=== PATIENT | female | born 1965 ===

== ENCOUNTER 2020-02-19 10:14 | Outpatient (REF) | payer OTHER, SELFPAY ==
[2020-02-19 11:07] LABS: Creatinine Urine 120.64 mg/dL; Microalbum/Creatinine Ratio Ur 5.8 ug/mg cr
[2020-02-19 11:09] LABS: Alanine Aminotransferase 15 U/L (0-31); Alkaline Phosphatase 75 U/L (39-117); Anion Gap 13 (12-20); Aspartate Amino Transferase 14 U/L (5-31); Bilirubin Total 0.5 mg/dL (0.0-1.0); Blood Urea Nitrogen 14 mg/dL (9-16); Calcium 9.1 mg/dL (8.4-10.2); Carbon Dioxide 24 mmol/L (22-29); Chloride 106 mmol/L (96-108); Estimated Glomerular Filt Rate > 60; Glucose Fasting 135 mg/dL (60-99); Potassium 4.4 mmol/l (3.3-5.1); Sodium 139 mmol/L (135-145); Total Protein 7.6 g/dL (6.5-8.0)
== END 2020-02-19 10:15 | disposition home or self-care (01) ==
LOC: HO.LAB 10:14
PROVIDERS: PCP Internal Medicine; Visit Provider Internal Medicine
DX: E11.9 Type 2 diabetes mellitus without complications (principal)
CPT/HCPCS: 80053; 82043

== ENCOUNTER 2020-03-29 10:07 | Outpatient (REF) | payer OTHER, SELFPAY | END 2020-03-29 10:08 | disposition home or self-care (01) | LOC: HO.LAB 10:07 | PROVIDERS: Visit Provider Internal Medicine | DX: Z20.828 Contact with and (suspected) exposure to other viral communicable diseases (principal) | CPT/HCPCS: C9803; U0003 ==

== ENCOUNTER → 2020-04-19 12:52 | Outpatient (BNVA) | payer OTHER, SELFPAY | PROVIDERS: PCP Internal Medicine; Referring Provider Internal Medicine; Visit Provider Internal Medicine Gastroenterology | DX: Z83.71 Family history of colonic polyps (principal) | CPT/HCPCS: 99212 ==

== ENCOUNTER 2020-10-28 09:31 | Outpatient (REF) | payer OTHER, SELFPAY ==
[2020-10-28 10:07] LABS: MANUAL DIFF FLAG NO
[2020-10-28 10:14] LABS: Basophils Percent Auto 0.5 % (0-2); Eosinophils Absolute Auto 0.1 X10*3/uL (0.0-0.4); Eosinophils Percent Auto 1.4 % (0-4); Hematocrit 35.8 % (37-47); Hemoglobin 11.8 g/dl (12.0-16.0); Imm Gran Abs Auto 0.03 X10*3/uL (0.00-0.03); Imm Gran Pct Auto 0.3 % (0.0-0.4); Lymphocytes Absolute Auto 3.4 X10*3/uL (1.2-4.9); Lymphocytes Percent Auto 38.6 % (20-40); Mean Corpuscular Hemoglobin 29.4 pg (27.0-33.0); Mean Corpuscular Volume 89.1 fL (80-98); Mean Platelet Volume 12.2 fL (9.4-12.3); Monocytes Absolute Auto 0.5 X10*3/uL (0.1-1.2); Monocytes Percent Auto 5.5 % (2-11); Neutrophils Absolute Auto 4.7 X10*3/uL (2.0-8.3); Neutrophils Percent Auto 53.7 % (45-73); Platelet Count 264 X10*3/uL (160-400); Red Blood Count 4.02 X10*6/uL (4.20-5.50); Red Cell Distribution Width 12.3 % (11.0-16.0); White Blood Count 8.7 X10*3/uL (4.8-10.8)
[2020-10-28 10:37] LABS: Alanine Aminotransferase 12 U/L (0-31); Albumin Level 3.9 g/dL (3.5-5.0); Alkaline Phosphatase 85 U/L (39-117); Anion Gap 12 (12-20); Aspartate Amino Transferase 13 U/L (5-31); Bilirubin Total 0.3 mg/dL (0.0-1.0); Blood Urea Nitrogen 15 mg/dL (9-16); Calcium 9.4 mg/dL (8.4-10.2); Carbon Dioxide 26 mmol/L (22-29); Chloride 107 mmol/L (96-108); Cholesterol 190 mg/dL; Estimated Glomerular Filt Rate > 60; Glucose Fasting 128 mg/dL (60-99); HDL Cholesterol 37 mg/dL; LDL Cholesterol Calculated 137 mg/dl; Potassium 4.9 mmol/L (3.3-5.1); Sodium 140 mmol/L (135-145); Total Protein 7.4 g/dL (6.5-8.0); Triglycerides 84 mg/dL
[2020-10-28 10:59] LABS: Thyroid Stimulating Hormone 1.58 uIU/mL (0.32-4.0)
[2020-10-28 11:32] LABS: Folate 8.1 ng/mL (> or = 4.0); Vitamin B12 342 pg/mL (200-900)
[2020-10-28 11:33] LABS: Creatinine Urine 114.28 mg/dL; Microalbum/Creatinine Ratio Ur 6.1 ug/mg cr
[2020-11-02 15:22] LABS: Vitamin D 25-OH, D2 <4 ng/mL; Vitamin D 25-OH, D3 16 ng/mL; Vitamin D 25-OH, Total 16 ng/mL (30-100)
== END 2020-10-28 09:32 | disposition home or self-care (01) ==
LOC: HO.LAB 09:31
PROVIDERS: PCP Internal Medicine; Visit Provider Internal Medicine
DX: D64.9 Anemia, unspecified (principal); R53.82 Chronic fatigue, unspecified; E78.5 Hyperlipidemia, unspecified; E11.9 Type 2 diabetes mellitus without complications; E55.9 Vitamin D deficiency, unspecified
CPT/HCPCS: 36415; 80053; 80061; 82043; 82306; 82607; 82746; 84443; 85025

== ENCOUNTER 2020-10-31 13:15 | Outpatient (REF) | payer OTHER, SELFPAY ==
--- NOTE | ~2020-10-31 | XR_ITS ---
EXAMINATION: XR chest 2V CLINICAL INFORMATION: Shortness of breath COMPARISON: Prior chest x-ray 01/07/2016. TECHNIQUE: XR chest 2V Lungs and Adelia: Both lungs are clear. Pleura: Normal. Costophrenic angles are sharp. No pneumothorax. Heart: The heart is normal in size. Mediastinum: The mediastinum is within normal limits.. Bones: Skeletal structures included are normal for patient's age. XR/XR chest 2V IMPRESSION: No radiographic evidence of acute cardiopulmonary disease.
--- NOTE | ~2020-10-31 | XR_ITS ---
EXAMINATION: XR SHOULDER , LEFT CLINICAL INFORMATION: Pain COMPARISON: None available at the time of this dictation. TECHNIQUE: AP external rotation, Grashey, scapular Y, and axillary views of the shoulder. FINDINGS: BONES: There is no fracture or dislocation, no osteolytic or osteoblastic lesion. JOINTS: Glenohumeral joint is properly positioned. 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 SOFT TISSUE AND INCLUDED LUNG: Normal. XR/XR shoulder LT min 2V IMPRESSION: Except for mild DJD of the AC joint, exam is normal.
== END 2020-10-31 13:16 | disposition home or self-care (01) ==
LOC: HO.XRAY 13:15
PROVIDERS: PCP Internal Medicine; Visit Provider Internal Medicine
DX: R06.02 Shortness of breath (principal); M25.512 Pain in left shoulder
CPT/HCPCS: 71046; 73030

== ENCOUNTER 2021-01-09 11:00 | Outpatient (RCR) | payer OTHER, SELFPAY ==
--- NOTE | 2020-12-11 12:53 | MHC.PT.EP ---
[facility] [place] Office [place] Office [place] Office [address] Tiffany Hernandez [address] [phone] F: [phone] F: [phone] F: [phone] F: [phone] Physical Therapy Plan of Care Date of Evaluation: Date of Surgery: Diagnosis: LEFT SHOULDER PAIN Assessment: 55 YO FEMALE REF TO PT FOR LEFT SHOULDER PAIN SINCE 05/2020- SHE NOTES SHE HAD COVID IN 03/29- SHE IS RT HAND DOMINANT- OBJECTIVE FINDINGS INCLUDE DECR CERV AND Lt SH AROM, (+) SOFT TISSUE IRRIT IN Lt UPPER TRAP/ SCAP MM, (+) IMPINGEMENT SXS Lt SH, Lt UE RADICULAR SXS INTO LEFT HAND (C7/C8 DERM), DECR POSTURAL AWARENESS, AND PAIN IN HER Lt SH/ UT. FUNCTIONAL LIMITATIONS INCLUDE DECR ABILITY TO HOOK HER BRA, REACH OVER HEAD TO A SHELF, REACH POSTERIORLY, AND LIFTING W Lt UE. Pt IS A GOOD PT CANDIDATE FOR SKILLED PT TO ADDRESS LEFT SH PAIN AND CERVICAL SXS. Frequency and Duration: The patient will be seen 2x WK x 5 WKS Short Term Goals: Pt DEMON INDEP SELF CORRECT POSTURE IN 2 WKS Pt'S Lt SH AND NECK PAIN DECR TO 2-3/10 AND Lt UE SXS REDUCED BY 75% IN 3 WKS Pt DEMON IMPROVED CERV AROM AND Lt SH AROM IN 2 WKS Alf Goals: Pt INDEP W HEP AND SELF SX MGMT TECHN IN 5 WKS Pt W IMPROVED SPADI SCORE BY AT LEST 8 POINTS IN 5 WKS Treatment Plan: Modalities to reduce pain, spasms and effusion. Manual therapy to restore motion and function. Therapeutic exercise to improve strength and flexibility. Neuromuscular re-education for posture and balance. Therapeutic activities to return to functional activities of daily living. Electronically signed by: Alyssa Batista,PT Please sign and return to therapist. Thank you for your referral.
--- NOTE | 2021-01-22 12:17 | MHC.PT.DC ---
[facility] [place] Office [place] Office [place] Office [address] Tiffany Hernandez [address] [phone] F: [phone] F: [phone] F: [phone] F: [phone] Physical Therapy Discharge Report Diagnosis: LEFT SHOULDER PAIN Date of Surgery: Date of Evaluation: 12/11/20 Date of Discharge: 01/22/21 Treatments to Date: 4 Cancellations to Date: 1 No Shows to Date: 3 Discharge Status: Improved Function Independent with HEP Visit Non-compliance Discharge Summary: Pt D/C'D THIS DATE DUE TO POOR ATTENDANCE AND DEPT NO SHOW POLICY- I PHONED Pt AND SPOKE W HER, SHE NOTED SHE WAS CHANGING HEALTH INSURANCE AND WOULD CONTINUE W HER HEP AT THIS TIME- STATED I AM FEELING MUCH BETTER - SHE HAS A HEP AND DEMON IMPROVED POSTURAL AWARENESS AND REDUCED PAIN. Electronically signed by: Alyssa Batista,PT Please sign and return to therapist. Thank you for your referral.
== END 2021-01-22 12:18 | disposition home or self-care (01) ==
LOC: HO.PT 11:00
PROVIDERS: PCP Internal Medicine; Visit Provider Internal Medicine
DX: M25.512 Pain in left shoulder (principal)
CPT/HCPCS: 97110; 97140; 97150; 97162; 97530

== ENCOUNTER 2021-05-31 09:44 | Outpatient (REF) | payer OTHER, SELFPAY ==
[2021-05-31 10:03] LABS: MANUAL DIFF FLAG NO
[2021-05-31 10:43] LABS: Basophils Percent Auto 0.4 % (0-2); Eosinophils Absolute Auto 0.1 X10*3/uL (0.0-0.4); Eosinophils Percent Auto 1.4 % (0-4); Hematocrit 37.5 % (37.0-47.0); Imm Gran Abs Auto 0.02 X10*3/uL (0.00-0.03); Imm Gran Pct Auto 0.2 % (0.0-0.4); Lymphocytes Absolute Auto 3.7 X10*3/uL (1.2-4.9); Lymphocytes Percent Auto 38.7 % (20-40); Mean Corpuscular Hemoglobin 28.9 pg (27.0-33.0); Mean Corpuscular Volume 90.4 fL (80.0-98.0); Mean Platelet Volume 12.3 fL (9.4-12.3); Monocytes Absolute Auto 0.4 X10*3/uL (0.1-1.2); Monocytes Percent Auto 4.6 % (2-11); Neutrophils Absolute Auto 5.3 x10*3/uL (2.0-8.3); Neutrophils Percent Auto 54.7 % (45-73); Platelet Count 269 X10*3/uL (160-400); Red Blood Count 4.15 X10*6/uL (4.20-5.50); Red Cell Distribution Width 12.8 % (11.0-16.0); White Blood Count 9.6 X10*3/uL (4.8-10.8)
[2021-05-31 10:49] LABS: Estimated Average Glucose 143 mg/dL; Hemoglobin A1c % 6.6 %
[2021-05-31 10:54] LABS: Alanine Aminotransferase 17 U/L (0-31); Alkaline Phosphatase 77 U/L (39-117); Anion Gap 12 (12-20); Aspartate Amino Transferase 15 U/L (5-31); Bilirubin Total 0.2 mg/dL (0.0-1.0); Blood Urea Nitrogen 15 mg/dL (9-16); Calcium 10.2 mg/dL (8.4-10.2); Carbon Dioxide 28 mmol/L (22-29); Chloride 104 mmol/L (96-108); Cholesterol 187 mg/dL; Estimated Glomerular Filt Rate > 60; Glucose Fasting 120 mg/dL (60-99); HDL Cholesterol 37 mg/dL; LDL Cholesterol Calculated 134 mg/dl; Potassium 4.6 mmol/L (3.3-5.1); Sodium 139 mmol/L (135-145); Total Protein 7.7 g/dL (6.5-8.0); Triglycerides 83 mg/dL
[2021-05-31 11:15] LABS: TSH reflex Free T4 1.66 uIU/mL (0.32-4.0)
[2021-05-31 11:51] LABS: Creatinine Urine 132.08 mg/dL; Microalbum/Creatinine Ratio Ur 7.5 ug/mg cr
[2021-06-02 09:55] LABS: Folate 8.4 ng/mL (> or = 4.0); Vitamin B12 395 pg/mL (200-900)
[2021-06-04 16:06] LABS: Vitamin D 25-OH, D2 <4 ng/mL; Vitamin D 25-OH, D3 17 ng/mL; Vitamin D 25-OH, Total 17 ng/mL (30-100)
== END 2021-05-31 09:45 | disposition home or self-care (01) ==
LOC: HO.LAB 09:44
PROVIDERS: Visit Provider Internal Medicine
DX: E11.40 Type 2 diabetes mellitus with diabetic neuropathy, unspecified (principal); E78.5 Hyperlipidemia, unspecified; E55.9 Vitamin D deficiency, unspecified; R53.82 Chronic fatigue, unspecified
CPT/HCPCS: 36415; 80053; 80061; 82043; 82306; 82607; 82746; 83036; 84443; 85025

== ENCOUNTER → 2021-06-27 10:05 | Outpatient (BNVA) | payer OTHER, SELFPAY | PROVIDERS: PCP Internal Medicine; Visit Provider Physician Assistant | DX: G56.02 Carpal tunnel syndrome, left upper limb (principal); M77.8 Other enthesopathies, not elsewhere classified | CPT/HCPCS: 99202 ==

== ENCOUNTER 2021-07-09 09:35 | Emergency (ER) | payer OTHER, SELFPAY ==
--- NOTE | ~2021-07-09 | CT_ITS ---
EXAMINATION: CT HEAD WITHOUT CONTRAST CLINICAL INFORMATION: Lightheaded, fatigue COMPARISON: None TECHNIQUE: Contiguous axial imaging was performed from the skull base to vertex without intravenous administration of contrast. This CT examination was performed using dose optimization techniques as appropriate, variously including the following: *Automated exposure control *Adjustment of mA and/or kV according to patient size (this includes techniques or standardized protocols for targeted exams where dose is matched to indication/reason for exam; i.e. extremities or head) *Use of iterative reconstruction technique DLP: 735 mGy-cm FINDINGS: There is no evidence of acute intracranial hemorrhage or edematous territorial infarction. No abnormal mass effect or midline shift is seen. Benjamin to white matter differentiation is well preserved. No extra-axial fluid collections are identified. The ventricles are normal in size. There is no abnormal attenuation within the brain parenchyma. No acute calvarial fracture. The mastoid air cells and visualized portions of the paranasal sinuses are well aerated. CT/CT head/brain wo con IMPRESSION: No CT evidence of acute intracranial intracranial hemorrhage or edematous territorial infarction.
--- NOTE | ~2021-07-09 | XR_ITS ---
EXAMINATION: XR CHEST CLINICAL INFORMATION: Lightheaded COMPARISON: X-ray 10/31/2020 TECHNIQUE: Frontal view of the chest was obtained. FINDINGS: Stable cardiomediastinal silhouette. Lungs are clear. No evidence of focal consolidation, effusion, edema or pneumothorax. No acute osseous abnormality. XR/XR chest 1V IMPRESSION: No evidence of consolidation.
--- NOTE | 2021-07-09 09:46 | ECG_ITS ---
Test Reason : DIZZINESS Blood Pressure : / mmHG Vent. Rate : 075 BPM Atrial Rate : 075 BPM P-R Int : 148 ms QRS Dur : 068 ms QT Int : 378 ms P-R-T Axes : 064 011 044 degrees QTc Int : 422 ms Normal sinus rhythm Normal ECG No previous ECGs available Referred By: Candy Perdomo Electronically Signed By:Cristobal Khan
[2021-07-09 09:47] VITALS: BP 176/83; BP 180/101; PULSE 78; PULSE 80; RESP 17; TEMP 36.7; O2SAT 100; BMI 40.4
--- NOTE | 2021-07-09 09:59 | PC.NURSE ---
Pt comes in via EMS from home, woke up with headache, lightheadedness and photophobia, Stroke alert called by EMS for sudden onset. Pt states she isn't sure when symptoms started as she woke up with them. Neuros grossly intact, +PERRLA, IV establsihed by EMS, call alcazar within reach. Will continue to monitor.
[2021-07-09 10:01] VITALS: BP 170/88; PULSE 75
[2021-07-09 10:02] VITALS: BP 182/98; PULSE 82
[2021-07-09 10:05] VITALS: BP 184/89; PULSE 84
[2021-07-09] MEDS: Acetaminophen 325 MG TABLET 650 MG PO (10:12)
[2021-07-09] MEDS: Meclizine HCl 25 MG TABLET PO (10:12)
[2021-07-09] MEDS: diphenhydrAMINE HCL 50 MG/ML VIAL 12.5 MG IVPUSH (10:13)
[2021-07-09] MEDS: 0.9 % Sodium Chloride 1,000 ML 999 ML IV (10:13)
[2021-07-09] MEDS: Metoclopramide HCl 10 MG/2 ML VIAL IVPUSH (10:13)
[2021-07-09 10:14] LABS: MANUAL DIFF FLAG NO
[2021-07-09 10:26] LABS: Basophils Percent Auto 0.4 % (0-2); Eosinophils Absolute Auto 0.1 X10*3/uL (0.0-0.4); Hematocrit 39.2 % (37.0-47.0); Hemoglobin 12.6 g/dl (12.0-16.0); Imm Gran Abs Auto 0.03 X10*3/uL (0.00-0.03); Imm Gran Pct Auto 0.4 % (0.0-0.4); Lymphocytes Absolute Auto 2.5 X10*3/uL (1.2-4.9); Lymphocytes Percent Auto 29.4 % (20-40); Mean Corpuscular HGB Conc 32.1 g/dl (31.0-35.0); Mean Corpuscular Hemoglobin 28.8 pg (27.0-33.0); Mean Corpuscular Volume 89.7 fL (80.0-98.0); Mean Platelet Volume 11.9 fL (9.4-12.3); Monocytes Absolute Auto 0.4 X10*3/uL (0.1-1.2); Monocytes Percent Auto 4.6 % (2-11); Neutrophils Absolute Auto 5.4 x10*3/uL (2.0-8.3); Neutrophils Percent Auto 64.2 % (45-73); Platelet Count 257 X10*3/uL (160-400); Red Blood Count 4.37 X10*6/uL (4.20-5.50); Red Cell Distribution Width 12.5 % (11.0-16.0); White Blood Count 8.4 X10*3/uL (4.8-10.8)
[2021-07-09 10:31] LABS: COVID-19 Test Negative (Negative)
[2021-07-09 10:38] LABS: Alanine Aminotransferase 20 U/L (0-31); Albumin Level 4.1 g/dL (3.5-5.0); Alkaline Phosphatase 81 U/L (39-117); Anion Gap 14 (12-20); Aspartate Amino Transferase 20 U/L (5-31); Bilirubin Direct 0.2 mg/dL (0.0-0.5); Bilirubin Total 0.3 mg/dL (0.0-1.0); Blood Urea Nitrogen 13 mg/dL (9-16); Calcium 9.8 mg/dL (8.4-10.2); Carbon Dioxide 26 mmol/L (22-29); Chloride 104 mmol/L (96-108); Creatinine Clr Calc Pharmacy 84.7; Estimated Glomerular Filt Rate > 60; Glucose Random 151 mg/dL (60-115); Magnesium 1.7 mg/dL (1.6-2.6); Potassium 4.9 mmol/L (3.3-5.1); Sodium 139 mmol/L (135-145); Total Protein 8.1 g/dL (6.5-8.0); Troponin-I High Sensitivity < 3.5 ng/L (<3.5-17.0)
--- NOTE | 2021-07-09 10:51 | ED.GENADULT ---
HPI - General Adult General Chief complaint: Headache Stated complaint: STROKE ALERT DIZZY 7AM,HIGH BP 170/107 PER EMS Time Seen by Provider: 07/09/21 09:39 Source: patient and EMS Mode of arrival: EMS History of Present Illness HPI narrative: 55-year-old female with past medical history of diabetes, HLD, BIBA complaining of headache, lightheadedness, photophobia, generalized fatigue/weakness since 07:00am. Reports associated nausea. States headache not maximal at onset, woke up with symptoms, mild at present. Denies taking anticoagulation. Denies vision change/loss, vomiting, CP/SOB, abdominal pain, numbness/tingling, room spinning dizziness Onset (ago): hour(s) Related Data Previous Rx's Medication Instructions Recorded blood sugar diagnostic (FreeStyle 1 strip MISCELLANEOUS BID 30 Days 09/12/20 Lite Strips) #100 strip metformin 500 mg tablet 500 mg PO BID #180 tab 11/07/20 fluticasone propionate 50 1 spray INTRANASAL DAILY #150 ml 12/04/20 mcg/actuation nasal spray,suspension (Flonase Allergy Relief) triamcinolone acetonide 0.1 % 1 appl TOPICAL DAILY 14 Days #15 g 12/04/20 topical cream lancets 33 gauge (TRUEplus Lancets) 33 gauge MISCELLANEOUS BID 50 Days 12/11/20 #100 ea atorvastatin 10 mg tablet 10 mg PO BEDTIME 90 Days #90 tab 06/03/21 cholecalciferol (vitamin D3) 50 50 mcg PO DAILY 90 Days #90 cap 06/04/21 mcg (2,000 unit) capsule [id number]-ogdgbenrybjxp-mexpezyl 1 cap PO Q4-6H PRN #14 cap 07/09/21 50 mg-300 mg-40 mg capsule (Fioricet) cefuroxime axetil 250 mg tablet 250 mg PO BID 7 Days #14 tab 07/09/21 Allergies Allergy/AdvReac Type Severity Reaction Status Date / Time No Known Allergies Allergy Verified 06/27/21 10:15 [No Known Allergies*] Review of Systems Review of Systems: Constitutional: No Fever, No Chills, + Fatigue, No Malaise ENT/Mouth: No Ear Pain, No sore throat, No Rhinorrhea, No Swallowing Difficulty Eyes: No Eye Pain, No Swelling, No Redness, No Discharge, No Vision Changes, +photophobia Cardiovascular: No Chest Pain, No SOB, No Dyspnea on Exertion, No Orthopnea Respiratory: No Cough, No Dyspnea Gastrointestinal: + Nausea, No Vomiting, No Diarrhea, No Constipation, No Abdominal pain Genitourinary: No Dysuria, No Urinary Frequency, No Urgency, No Flank Pain, No Urinary Flow Changes, No Hesitancy Musculoskeletal: No joint pain, No Myalgias, No Joint Swelling Skin: No Skin Lesions, No rash Neuro: +Generalized Weakness, No Numbness, No Paresthesias, No Loss of Consciousness, No Dizziness, + lightheaded, + Headache Yes all other systems are reviewed and are negative Eyes: Eyes: Reports photophobia Neurologic: Denies Abnormal speech present [facility] Past Medical History Attestation statement: The following information was validated with the patient. Medical History Chronic fatigue Diabetes mellitus Hyperlipidemia LDL goal <100 Left shoulder pain Morbid obesity Pure hypercholesterolemia Rash Shortness of breath Surgical History History of History of colonoscopy Family History Family History Father Hypertension Stroke Mother Hypertension Stroke Diabetes Maternal Aunt Cancer Brother No problems noted. Son No problems noted. Son No problems noted. Sister No problems noted. Sister No problems noted. Daughter No problems noted. Social History Social History Housing: Apartment Alcohol intake: never Patient Tobacco Use Status: Never used Tobacco e-Cigarette/Vaping Use: Never Used Second Hand Smoke Exposure: No Advance Directives: No Advance Directives Information Provided: No service: No Current occupational status: unemployed Physical Exam ED Vital Signs: Vital Signs - 24 hr 07/09/21 09:47 07/09/21 10:01 07/09/21 10:02 Temperature 98.0 F Pulse Rate 78 75 82 Respiratory Rate 17 Blood Pressure 176/83 H 170/88 H 182/98 H Pulse Oximetry 100 07/09/21 10:05 Temperature Pulse Rate 84 Respiratory Rate Blood Pressure 184/89 H Pulse Oximetry BMI result Body Mass Index 40.4 Const General: cooperative, healthy appearing, no acute distress and well developed Orientation/consciousness: patient oriented x3 Limitations: no limitations HENMT Head: Yes normal to inspection and Yes atraumatic Ears: hearing grossly normal bilaterally General nose exam: Normal external nose present Face and sinus: Yes normal facial exam Mouth: Normal oral and palatal mucosa present Throat: Yes posterior oropharynx normal, Yes tonsils normal and Yes uvula midline Eyes General: appearance normal, both eyes and all related structures Pupils: Equal, round and reactive pupils present EOM: EOMs intact bilaterally Direct Ophthalmoscopy: photophobia Neck Neck: Yes normal visual inspection and Yes no meningeal signs Resp Effort & Inspection: normal respiratory effort and no respiratory distress Auscultation: clear to auscultation bilaterally, no rales, no rhonchi and no wheezes Cardio Rate: regular rate Heart sounds: S1 normal heart sound present and S2 normal heart sound present GI Inspection: Yes normal to inspection Palpation (GI): Soft to palpation, nontender, no guarding and not rigid Skin Rashes: no rashes Wounds: no wounds Neuro General: patient oriented x3, tone normal, moves all extremities, no meningeal signs, no focal motor deficits and CN's II-XI intact bilaterally Cranial nerves: Yes CN's II-XII intact bilaterally, Yes Equal, round and reactive pupils present and Yes Bilaterally intact EOM present Cognition (Neuro): normal cognition Speech: No Abnormal speech present Motor exam (neuro): 5/5 motor strength present throughout and Pronator motor function not present Coordination: iebkjr-wo-zswq test normal Romberg Test: Negative Extrem General: Yes normal to inspection, Yes no pedal edema and Yes no calf tenderness Course Course Course Narrative: -1140--labs unremarkable. Initial troponin negative > will obtain 3 hour repeat -orthostatic vital signs negative CT head/brain wo con IMPRESSION: No CT evidence of acute intracranial intracranial hemorrhage or edematous territorial infarction. XR chest 1V IMPRESSION: No evidence of consolidation. -1214--on re-evaluation patient reports symptomatic improvement, reports minimal headache and denies lightheadedness at present. -1329--repeat troponin equivocal, mi unlikely. UA infected. Patient given 1st dose of Ceftin in the ED for and results discussed patient reports symptomatic improvement in the ED, feels safe for discharge home at this time. Discussed worrisome signs and symptoms and strict return precautions and need close follow-up with PCP, patient verbalized understanding & feels safe. Discharge home at this time Medical Decision Making MDM Narrative Medical decision making narrative: 55-year-old female with past medical history of diabetes, HLD, BIBA complaining of headache, lightheadedness, photophobia, generalized fatigue/weakness since 07:00am. On exam vital signs stable, NAD, focal neuro deficits, + appreciable photophobia. Concern for migraine headache. Lower concern for CVA/SAH/meningitis or encephalitis. Rule out metabolic abnormalities. Plan: EKG, Labs, CXR, head CT, symptomatic remedies, orthostatics, re-evaluate Medical Records Medical records reviewed: Yes I reviewed the patient's medical records. Lab Data Lab results reviewed: Yes I reviewed the patient's lab results. Result diagrams: 07/09/21 09:55 07/09/21 09:55 Labs: Lab Results 07/09/21 07/09/21 07/09/21 Range/Units 09:55 09:55 09:55 WBC 8.4 (4.8-10.8) X10*3/uL RBC 4.37 (4.20-5.50) X10*6/uL Hgb 12.6 (12.0-16.0) g/dl Hct 39.2 (37.0-47.0) % MCV 89.7 (80.0-98.0) fL MCH 28.8 (27.0-33.0) pg MCHC 32.1 (31.0-35.0) g/dl RDW 12.5 (11.0-16.0) % Plt Count 257 (160-400) X10*3/uL MPV 11.9 (9.4-12.3) fL Immature Gran % (Auto) 0.4 (0.0-0.4) % Neut % (Auto) 64.2 (45-73) % Lymph % (Auto) 29.4 (20-40) % Williamson % (Auto) 4.6 (2-11) % Eos % (Auto) 1.0 (0-4) % Baso % (Auto) 0.4 (0-2) % Lymph # (Auto) 2.5 (1.2-4.9) X10*3/uL Williamson # (Auto) 0.4 (0.1-1.2) X10*3/uL Eos # (Auto) 0.1 (0.0-0.4) X10*3/uL Baso # (Auto) 0.0 (0.0-0.2) X10*3/uL Abs Immat Gran (auto) 0.03 (0.00-0.03) X10*3/uL Absolute Neuts (auto) 5.4 (2.0-8.3) x10*3/uL Absolute Nucleated RBC 0.000 (0.0-0.012) X10*3/uL Nucleated RBC % (auto) 0.0 (0.0-0.2) /100WBC Sodium 139 (135-145) mmol/L Potassium 4.9 (3.3-5.1) mmol/L Chloride 104 (96-108) mmol/L Carbon Dioxide 26 (22-29) mmol/L Anion Gap 14 (12-20) BUN 13 (9-16) mg/dL Creatinine 0.75 (0.5-1.4) mg/dL Estim Creat Clear Calc 84.7 Estimated GFR > 60 Random Glucose 151 H (60-115) mg/dL Calcium 9.8 (8.4-10.2) mg/dL Magnesium 1.7 (1.6-2.6) mg/dL Total Bilirubin 0.3 (0.0-1.0) mg/dL Direct Bilirubin 0.2 (0.0-0.5) mg/dL AST 20 (5-31) U/L ALT 20 (0-31) U/L Alkaline Phosphatase 81 (39-117) U/L Troponin I High Sens < 3.5 (<3.5-17.0) ng/L Total Protein 8.1 H (6.5-8.0) g/dL Albumin 4.1 (3.5-5.0) g/dL Urine Color Urine Appearance Urine pH (5.0-8.0) Ur Specific [place] (1.005-1.025) Urine Protein (NEG-TRACE) MG/DL Urine Glucose (UA) (NEG) MG/DL Urine Ketones (NEG) MG/DL Urine Blood (NEG) Urine Nitrite (NEG) Ur Leukocyte Esterase (NEG) Urine RBC (0) /HPF Urine WBC (0-4) /HPF Ur Squamous Epith Cells /LPF Urine Bacteria /LPF COVID-19 ([facility]) (Negative) COVID-19 Clin Com 07/09/21 07/09/21 07/09/21 Range/Units 09:55 12:49 14:46 WBC (4.8-10.8) X10*3/uL RBC (4.20-5.50) X10*6/uL Hgb (12.0-16.0) g/dl Hct (37.0-47.0) % MCV (80.0-98.0) fL MCH (27.0-33.0) pg MCHC (31.0-35.0) g/dl RDW (11.0-16.0) % Plt Count (160-400) X10*3/uL MPV (9.4-12.3) fL Immature Gran % (Auto) (0.0-0.4) % Neut % (Auto) (45-73) % Lymph % (Auto) (20-40) % Williamson % (Auto) (2-11) % Eos % (Auto) (0-4) % Baso % (Auto) (0-2) % Lymph # (Auto) (1.2-4.9) X10*3/uL Williamson # (Auto) (0.1-1.2) X10*3/uL Eos # (Auto) (0.0-0.4) X10*3/uL Baso # (Auto) (0.0-0.2) X10*3/uL Abs Immat Gran (auto) (0.00-0.03) X10*3/uL Absolute Neuts (auto) (2.0-8.3) x10*3/uL Absolute Nucleated RBC (0.0-0.012) X10*3/uL Nucleated RBC % (auto) (0.0-0.2) /100WBC Sodium (135-145) mmol/L Potassium (3.3-5.1) mmol/L Chloride (96-108) mmol/L Carbon Dioxide (22-29) mmol/L Anion Gap (12-20) BUN (9-16) mg/dL Creatinine (0.5-1.4) mg/dL Estim Creat Clear Calc Estimated GFR Random Glucose (60-115) mg/dL Calcium (8.4-10.2) mg/dL Magnesium (1.6-2.6) mg/dL Total Bilirubin (0.0-1.0) mg/dL Direct Bilirubin (0.0-0.5) mg/dL AST (5-31) U/L ALT (0-31) U/L Alkaline Phosphatase (39-117) U/L Troponin I High Sens < 3.5 (<3.5-17.0) ng/L Total Protein (6.5-8.0) g/dL Albumin (3.5-5.0) g/dL Urine Color STRAW Urine Appearance HAZY Urine pH 5.5 (5.0-8.0) Ur Specific [place] 1.015 (1.005-1.025) Urine Protein NEG (NEG-TRACE) MG/DL Urine Glucose (UA) NEG (NEG) MG/DL Urine Ketones NEG (NEG) MG/DL Urine Blood NEG (NEG) Urine Nitrite POS H (NEG) Ur Leukocyte Esterase NEG (NEG) Urine RBC 0 (0) /HPF Urine WBC 5-9 H (0-4) /HPF Ur Squamous Epith Cells 1+ /LPF Urine Bacteria 4+ /LPF COVID-19 ([facility]) Negative (Negative) COVID-19 Clin Com See Note Discharge Plan Discharge Clinical Impression: UTI (urinary tract infection), Migraine, Lightheaded Patient Disposition: Home, Self-Care Instructions: Urinary Tract Infection in Women (DC), Migraine Headache (ED) Additional Instructions: Your blood work and imaging studies were reassuring today in the emergency department. You do have a urinary tract infection. Ceftin is antibiotic please take as prescribed. Fioricet helps with migraine headaches, take as needed. Make sure to drink plenty of fluids. Rest. Please follow-up with her doctor. If symptoms persist or worsen, constant worsening headache, nausea/vomiting, developed chest pain/shortness breath or weakness please return to the emergency department Prescriptions: New tnpsrxdhzo-ajgyvpowjehwv-tdmz [Fioricet] 50-300-40 mg capsule 1 cap PO Q4-6H PRN (Reason: headache) Qty: 14 0RF cefuroxime axetil 250 mg tablet 250 mg PO BID 7 Days Qty: 14 0RF No Action blood sugar diagnostic [FreeStyle Lite Strips] Strip 1 strip miscellaneous BID 30 Days Qty: 100 11RF metformin 500 mg tablet 500 mg PO BID Qty: 180 6RF lancets [TRUEplus Lancets] 33 gauge misc 33 gauge miscellaneous BID 50 Days Qty: 100 11RF cholecalciferol (vitamin D3) 50 mcg (2,000 unit) capsule 50 mcg PO DAILY 90 Days Qty: 90 0RF fluticasone propionate [Flonase Allergy Relief] 50 mcg/actuation spray,suspension 1 spray intranasal DAILY Qty: 150 0RF Rx Instructions: administer into each nostril triamcinolone acetonide 0.1 % cream 1 appl topical DAILY 14 Days Qty: 15 1RF atorvastatin 10 mg tablet 10 mg PO BEDTIME 90 Days Qty: 90 0RF Referrals: Selina Mckeon MD [Primary Care Provider] - 2 days
[2021-07-09] MEDS: Ketorolac Tromethamine 15 MG/ML VIAL IVPUSH (12:46)
[2021-07-09 12:55] LABS: Appearance Urine HAZY; Color Urine STRAW; Glucose Urine UA NEG (NEG); Leukocyte Esterase Urine NEG (NEG); Nitrite Urine POS (NEG); PH 5.5 (5.0-8.0); Specific Gravity - Urine 1.015 (1.005-1.025); UACC Culture Trigger YES; Urine Blood NEG (NEG); Urine Ketones NEG (NEG); Urine Protein NEG (NEG-TRACE)
[2021-07-09 13:04] LABS: Bacteria Urine 4+ /LPF; RBC Urine 0 /HPF (0); Squamous Epithelial Cell Urine 1+ /LPF
[2021-07-09] MEDS: Butalb/Acetamin/Caff 50/325/40 TABLET 1 TAB PO (13:48)
[2021-07-09 15:13] LABS: Troponin-I High Sensitivity < 3.5 ng/L (<3.5-17.0)
== END 2021-07-09 15:45 | disposition home or self-care (01) ==
PROVIDERS: Physician Assistant; Emergency Provider Emergency Medicine; PCP Internal Medicine
DX: N39.0 Urinary tract infection, site not specified (principal); G43.909 Migraine, unspecified, not intractable, without status migrainosus; R42 Dizziness and giddiness; E11.9 Type 2 diabetes mellitus without complications; E78.5 Hyperlipidemia, unspecified; Z20.822 Contact with and (suspected) exposure to COVID-19; Z79.02 Long term (current) use of antithrombotics/antiplatelets
CPT/HCPCS: 36415; 70450; 71045; 80048; 80076; 81001; 83735; 84484; 85025; 87086; 87088; 87186; 87635; 93005; 96361; 96374; 96375; 99284; J1200; J1885; J2765

== ENCOUNTER 2021-08-13 09:52 | Outpatient (REF) | payer OTHER, SELFPAY ==
--- NOTE | 2021-08-13 09:56 | EMG_ITS ---
This is a 55-year-old woman with a history of left hand numbness. She also has some pain going into the shoulder. PHYSICAL EXAMINATION: She is alert and oriented with normal intellectual functions. Cranial nerves are normal. There is no Tinel or Phalen sign. Normal strength. IMPRESSION: Rule out carpal tunnel syndrome. Nerve conduction EMG study: Early carpal tunnel syndrome on the left, otherwise normal study of the left upper extremity. Normal EMG of the left C5-T1 innervated muscles. MD RON Boateng/NATY / [id number]
== END 2021-08-13 09:53 | disposition home or self-care (01) ==
LOC: HO.NEURO 09:52
PROVIDERS: PCP Internal Medicine; Visit Provider Physician Assistant
DX: R20.0 Anesthesia of skin (principal); R20.2 Paresthesia of skin
CPT/HCPCS: 95885; 95910

== ENCOUNTER → 2021-09-30 08:51 | Outpatient (BNVA) | payer OTHER, SELFPAY | PROVIDERS: PCP Internal Medicine; Visit Provider Orthopaedic Surgery | DX: G56.02 Carpal tunnel syndrome, left upper limb (principal) | CPT/HCPCS: 99202 ==

== ENCOUNTER 2021-12-16 08:05 | Outpatient (REF) | payer OTHER, SELFPAY ==
[2021-12-16 09:24] LABS: Alanine Aminotransferase 20 U/L (0-31); Albumin Level 3.9 g/dL (3.5-5.0); Alkaline Phosphatase 78 U/L (39-117); Anion Gap 17 (12-20); Aspartate Amino Transferase 17 U/L (5-31); Bilirubin Total 0.4 mg/dL (0.0-1.0); Blood Urea Nitrogen 16 mg/dL (9-16); Carbon Dioxide 26 mmol/L (22-29); Chloride 103 mmol/L (96-108); Cholesterol 185 mg/dL; Estimated Glomerular Filt Rate > 60; Glucose Fasting 154 mg/dL (60-99); HDL Cholesterol 38 mg/dL; LDL Cholesterol Calculated 129 mg/dl; Potassium 4.9 mmol/L (3.3-5.1); Sodium 141 mmol/L (135-145); Total Protein 7.5 g/dL (6.5-8.0); Triglycerides 92 mg/dL
[2021-12-16 09:26] LABS: Calcium 9.4 mg/dL (8.4-10.2)
[2021-12-16 09:28] LABS: Microalbumin Urine < 5.0 mg/L
[2021-12-21 15:42] LABS: Vitamin D 25-OH, D2 <4 ng/mL; Vitamin D 25-OH, D3 28 ng/mL; Vitamin D 25-OH, Total 28 ng/mL (30-100)
== END 2021-12-16 08:06 | disposition home or self-care (01) ==
LOC: HO.LAB 08:05
PROVIDERS: PCP Internal Medicine; Visit Provider Internal Medicine
DX: E11.9 Type 2 diabetes mellitus without complications (principal); E78.5 Hyperlipidemia, unspecified; E55.9 Vitamin D deficiency, unspecified
CPT/HCPCS: 36415; 80053; 80061; 82043; 82306

== ENCOUNTER 2022-08-21 18:57 | Emergency (ER) | payer OTHER, SELFPAY ==
--- NOTE | 2022-08-21 19:24 | ED.GENADULT ---
HPI - General Adult General Chief complaint: Eye Problems <DESMOND Ann - Last Filed: 08/21/22 19:26> Stated complaint: FB in R eye <DESMOND Ann - Last Filed: 08/21/22 19:26> Time Seen by Provider: 08/21/22 21:35 <DESMOND Ann - Last Filed: 08/21/22 19:26> Source: patient <DESMOND Simms Last Filed: 08/21/22 21:47> Mode of arrival: ambulatory <DESMOND Simms - Last Filed: 08/21/22 21:47> Limitations: no limitations <DESMOND Simms Last Filed: 08/21/22 21:47> History of Present Illness HPI narrative: This is a 56-year-old female presenting with complaints of foreign body sensation in right eye, patient tells me around 02:00 o'clock today she was dusting, the wind blew and she felt like something got into her eye. Since then has been having pain, swelling and a foreign body sensation. Denies visual changes. Denies pain with eye movements. Denies headache, dizziness, nausea, vomiting, abdominal pain, neck pain,, chest pain, shortness of breath, fevers and chills. Patient does not were glasses or contact lenses. <DESMOND Simms - Last Filed: 08/21/22 21:47> Related Data Home medications: Previous Rx's Medication Instructions Recorded fluticasone propionate 50 1 spray intranasal DAILY #150 mL 12/04/20 mcg/actuation nasal spray,suspension (Flonase Allergy Relief) lancets 33 gauge (TRUEplus Lancets) 33 gauge miscellaneous BID for 12/11/20 diabetes mellitus 50 days #100 ea pkwtrbwmyb-xqicrvbmuzuab-lsfdrmyr 1 cap PO Q4-6H PRN headache #14 07/09/21 50 mg-300 mg-40 mg capsule caps (Fioricet) blood sugar diagnostic (FreeStyle 1 strip miscellaneous BID for 11/21/21 Lite Strips) diabetes mellitus 30 days #100 strips cholecalciferol (vitamin D3) 50 50 mcg PO DAILY 90 days #90 caps 11/21/21 mcg (2,000 unit) capsule metformin 500 mg tablet 500 mg PO BID #180 tabs 11/21/21 atorvastatin 20 mg tablet 20 mg PO BEDTIME 90 days #90 tabs 12/18/21 erythromycin 5 mg/gram (0.5 %) eye 1 appl ophthalmic (eye) DAILY #3.5 08/21/22 ointment grams <DESMOND Ann - Last Filed: 08/21/22 19:26> Allergies/adverse reactions: Allergies Allergy/AdvReac Type Severity Reaction Status Date / Time No Known Allergies Allergy Verified 12/18/21 14:08 [No Known Allergies*] <DESMOND Ann - Last Filed: 08/21/22 19:26> Review of Systems Review of Systems: Constitutional : No Weight loss, No Fever, No Chills, No Fatigue, No Malaise ENT/Mouth : No sore throat, No Rhinorrhea Eyes: No Eye Pain, No Swelling, + Redness Cardiovascular : No Chest Pain, No SOB, No Dyspnea on Exertion, No Orthopnea, No Edema, No Palpitations Respiratory : No Cough, No Sputum, No Wheezing Gastrointestinal : No Nausea, No Vomiting, No Diarrhea, No Constipation, No abdominal Pain, No Hematochezia, No Melena Genitourinary : No Dysuria, No Urinary Frequency, No Hematuria, Musculoskeletal : No joint pain, No Myalgias, No Joint Swelling Skin : No Skin Lesions, No rash Neuro : No Weakness, No Numbness, No Dizziness, No Headache Psych : No Anxiety/Panic, No Depression All other systems reviewed and are negative <DESMOND Simms Last Filed: 08/21/22 21:47> Yes all other systems are reviewed and are negative <DESMOND Simms Last Filed: 08/21/22 21:47> [facility] Past Medical History Attestation statement: The following information was validated with the patient. <DESMOND Simms Last Filed: 08/21/22 21:47> Source: old records reviewed and nursing notes reviewed <DESMOND Simms Last Filed: 08/21/22 21:47> Medical History: Medical History Chronic fatigue Diabetes mellitus Hyperlipidemia LDL goal <100 Left shoulder pain Morbid obesity Pure hypercholesterolemia Rash Shortness of breath <DESMOND Ann - Last Filed: 08/21/22 19:26> Surgical History: Surgical History History of History of colonoscopy <DESMOND Ann - Last Filed: 08/21/22 19:26> Family History Family History: Family History Father Hypertension Stroke Mother Hypertension Stroke Diabetes Maternal Aunt Cancer Brother No problems noted. Son No problems noted. Son No problems noted. Sister No problems noted. Sister No problems noted. Daughter No problems noted. <DESMOND Ann - Last Filed: 08/21/22 19:26> Social History Social History: Social History Housing: Apartment Alcohol intake: never Patient Tobacco Use Status: Never used Tobacco e-Cigarette/Vaping Use: Never Used Second Hand Smoke Exposure: No Advance Directives: No Advance Directives Information Provided: No service: No Current occupational status: unemployed Cognitive needs: No Hearing needs: No Vision needs: No <DESMOND Ann - Last Filed: 08/21/22 19:26> Physical Exam ED Vital Signs: Vital Signs - 24 hr 08/21/22 19:26 Temperature 97.3 F Pulse Rate 94 Respiratory Rate 16 Blood Pressure 174/83 H Pulse Oximetry 96 Oxygen Delivery Method Room Air BMI result Body Mass Index 40.8 <DESMOND Ann - Last Filed: 08/21/22 19:26> Vital Signs - 24 hr 08/21/22 19:26 Temperature 97.3 F Pulse Rate 94 Respiratory Rate 16 Blood Pressure 174/83 H Pulse Oximetry 96 Oxygen Delivery Method Room Air BMI result Body Mass Index 40.8 vss <DESMOND Simms - Last Filed: 08/21/22 21:47> Appearance: Alert.? Oriented X3.? No acute distress.? Head: Normocephalic, atraumatic, no step-offs or deformities Eyes: Pupils equal, round and reactive to light.? Right conjunctiva injected. Extraocular movements intact pain-free. Fluorescein stain: There is a corneal abrasion noted to the 11 o'clock position of the R. eye. Negative Gabi sign. No signs of globe rupture. No signs of corneal ulcer ENT: Pharynx normal.? Neck: Normal inspection.? Neck supple.? CVS: Normal heart rate and rhythm.? Pulses normal.? Respiratory: No respiratory distress.? Breath sounds normal.? Abdomen: Soft and nontender.? Skin: Skin warm and dry.? Normal skin color.? Normal skin turgor.? Extremities: No lower extremity edema.? No calf ttp. 5/5 strength to bilateral upper and lower extremities Back: No midline tenderness, no C-spine tenderness, full range of motion, no CVA tenderness bilaterally Neuro: Oriented X 3.? No motor deficit.? No sensory deficit. CN 2-12 intact <DESMOND Simms - Last Filed: 08/21/22 21:47> Course Course Course Narrative: RME performed by Gerda Levy PA-C. Patient is a 56 year old assigned female at presenting to the emergency department with possible foreign body in her right eye. Patient states she felt a foreign body sensation from walking in the wind around 2:30pm today. Patient placed back in the waiting room pending room availability. <DESMOND Ann - Last Filed: 08/21/22 19:26> Reevaluation(s) Reevaluation #1: There was a corneal abrasion noted to the right eye. Patient was given erythromycin here. Advised her to follow-up with ophthalmology. Educated patient on diagnosis and treatment plan, answered all question, patient verbalizes understanding. At this time patient will be discharged home, advised to return with new or worsening symptoms. Educated on worrisome signs and symptoms and when to return. At this time I feel comfortable discharge home. <DESMOND Simms - Last Filed: 08/21/22 21:47> Time: 21:46 <DESMOND Simms Last Filed: 08/21/22 21:47> Medical Decision Making Medical Decision Making [facility] Narrative: [id number] 56-year-old female presents with foreign body sensation in right eye feels like she got dust in her eye. Physical exam with injected conjunctiva on the right eye. There is a corneal abrasion noted to the 11 o'clock position of the R. eye. Negative Gabi sign. No signs of globe rupture. No signs of corneal ulcer Concerns for possible corneal abrasion. No signs of corneal ulcer, negative Gabi sign no signs of globe rupture. Not consistent with acute closed angle glaucoma or macular degeneration. I do not suspect venous arterial occlusion or retinal detachment Plan at this time fluorescein stain. <DESMOND Simms - Last Filed: 08/21/22 21:47> Differential Diagnosis Differential Diagnoses: The differential diagnosis associated with the presentation includes <DESMOND Simms - Last Filed: 08/21/22 21:47> Concerns for possible corneal abrasion. No signs of corneal ulcer, negative Gabi sign no signs of globe rupture. Not consistent with acute closed angle glaucoma or macular degeneration. I do not suspect venous arterial occlusion or retinal detachment <DESMOND Simms - Last Filed: 08/21/22 21:47> Admission/Observation Consideration of admission/observation: Escalation of care including admission/observation considered <DESMOND Simms - Last Filed: 08/21/22 21:47> Unlikely <DESMOND Simms - Last Filed: 08/21/22 21:47> Core Measures AMI core measures followed: Yes <DESMOND Simms - Last Filed: 08/21/22 21:47> Measure exclusions: not indicated <DESMOND Simms - Last Filed: 08/21/22 21:47> Critical Care Time Critical Care Time Critical Care Time: No <DESMOND Simms Last Filed: 08/21/22 21:47> Discharge Plan Discharge Clinical Impression: Sensation of foreign body in eye, Abrasion, corneal <DESMOND Ann Last Filed: 08/21/22 19:26> Patient Disposition: Home, Self-Care <DESMOND Ann Last Filed: 08/21/22 19:26> Instructions: Corneal Abrasion (DC), Eye Pain (ED) <DESMOND Ann Last Filed: 08/21/22 19:26> Additional Instructions: Take your medications as prescribed. If you were prescribed antibiotics today, it is important that you take your medication to their entirety, do not skip any doses, do not finish them early. Follow-up with your primary care provider this week. Return to the emergency department with new or worsening symptoms. Such as fevers, chills, chest pain, shortness of breath, nausea, vomiting, dizziness, headache, vision changes, lethargy In case of emergency call 911 Use erythromycin as prescribed. <DESMOND Ann - Last Filed: 08/21/22 19:26> Prescriptions: New erythromycin 5 mg/gram (0.5 %) ointment 1 appl ophthalmic (eye) DAILY Qty: 3.5 0RF No Action lancets [TRUEplus Lancets] 33 gauge misc 33 gauge miscellaneous BID 50 Days Qty: 100 11RF FreeStyle Lite Strips Strip 1 strip miscellaneous BID 30 Days Qty: 100 11RF metformin 500 mg tablet 500 mg PO BID Qty: 180 6RF cholecalciferol (vitamin D3) 50 mcg (2,000 unit) capsule 50 mcg PO DAILY 90 Days Qty: 90 0RF pmeantgphd-abqtajqxjchku-fsrc [Fioricet] 50-300-40 mg capsule 1 cap PO Q4-6H PRN (Reason: headache) Qty: 14 0RF fluticasone propionate [Flonase Allergy Relief] 50 mcg/actuation spray,suspension 1 spray intranasal DAILY Qty: 150 0RF Rx Instructions: administer into each nostril atorvastatin 20 mg tablet 20 mg PO BEDTIME 90 Days Qty: 90 1RF <DESMOND Ann - Last Filed: 08/21/22 19:26> Referrals: Romario Corona [Physician] - 3 days Selina Mckeon MD [Primary Care Provider] - 2 days <DESMOND Ann - Last Filed: 08/21/22 19:26>
[2022-08-21 19:26] VITALS: BP 174/83; PULSE 94; RESP 16; TEMP 36.3; O2SAT 96; BMI 40.8
[2022-08-21] MEDS: Fluorescein Sodium STRIP 1 STRIP EYE-BOTH (21:56)
[2022-08-21] MEDS: Erythromycin Base 0.5% Oph Oin 1 GM TUBE 1 CM EYE-RIGHT (21:56)
[2022-08-21] MEDS: Tetracaine HCl/PF 0.5% Oph Sol 4 ML DROPS 3 DROP EYE-BOTH (21:57)
== END 2022-08-21 21:58 | disposition home or self-care (01) ==
PROVIDERS: Emergency Provider Emergency Medicine; PCP Internal Medicine
DX: S05.01XA Injury of conjunctiva and corneal abrasion without foreign body, right eye, initial encounter (principal); X58.XXXA Exposure to other specified factors, initial encounter; E11.9 Type 2 diabetes mellitus without complications; E78.5 Hyperlipidemia, unspecified; E66.9 Obesity, unspecified; Z68.41 Body mass index [BMI] 40.0-44.9, adult; Y93.E9 Activity, other interior property and clothing maintenance; Y92.019 Unspecified place in single-family (private) house as the place of occurrence of the external cause; Y99.9 Unspecified external cause status
CPT/HCPCS: 99282; 99283

== ENCOUNTER 2023-01-27 09:29 | Emergency (ER) | payer OTHER, SELFPAY ==
--- NOTE | ~2023-01-27 | CT_ITS ---
EXAMINATION: CT HEAD WITHOUT CONTRAST CLINICAL INFORMATION: Headache COMPARISON: Portions of a previous 07/09/21 TECHNIQUE: Multidetector CT examination of the head is performed without contrast. This CT examination was performed using dose optimization techniques as appropriate, variously including the following: *Automated exposure control *Adjustment of mA and/or kV according to patient size (this includes techniques or standardized protocols for targeted exams where dose is matched to indication/reason for exam; i.e. extremities or head) *Use of iterative reconstruction technique DLP: 723 mGy-cm FINDINGS: There is no evidence of a recent intracranial hemorrhage or extra-axial collection. The midline structures are nondisplaced. The ventricles, cisterns, and sulci are within normal limits. There is no evidence of an intra-axial mass. There are no suspicious focal areas of abnormal brain attenuation. The ye-white interface is within normal limits. There is no evidence of acute territorial infarct. 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 No surrounding edema. Partial opacification of the left frontal and some of the ethmoid air cells. CT/CT head/brain wo IV con IMPRESSION: 1. There is no evidence of a recent intracranial hemorrhage. 2. No acute infarct. 3. Sinus disease
[2023-01-27 09:34] VITALS: BP 201/84; PULSE 80; RESP 19; TEMP 36.6; O2SAT 98; BMI 42.9
[2023-01-27 15:31] VITALS: BP 186/87; PULSE 85; RESP 16; TEMP 36.6; O2SAT 98
[2023-01-27] MEDS: Metoclopramide HCl 10 MG/2 ML VIAL 5 MG IVPUSH (15:37)
[2023-01-27] MEDS: Acetaminophen 325 MG TABLET 975 MG PO (15:38)
[2023-01-27] MEDS: 0.9 % Sodium Chloride 500 ML IV (15:38)
[2023-01-27 15:47] LABS: MANUAL DIFF FLAG NO
--- NOTE | 2023-01-27 15:47 | ED.HA ---
HPI - Headache General Chief Complaint: Headache Stated Complaint: headache Time Seen by Provider: 01/27/23 15:08 Source: patient and old records reviewed Mode of arrival: ambulatory Limitations: no limitations History of Present Illness HPI Narrative: 57 yo female with PMH of DM, HLD, notes this AM around 8 oclock when she was making her bed she felt a funny feeling in her head on R side that has worsened and then noted a wavy change in vision like you see the waves on the road. She then reports photophobia, nausea, noise sensitivity and that pain has worsened. NO fevers, no neck pain and no blood thinners. She knew she was going to get a bad headache as this happened one year ago with the same aura and same headache post COVID. MD elicited complaint: headache Onset (ago): hour(s) (8am today) Onset description: gradually Location: right, frontal and band-like Severity: moderate Quality & Timing: throbbing Exacerbating factors: movement of head/neck, sitting/standing, light and noise Relieving factors: nothing Context: occurred at rest Associated symptoms: nausea, photophobia and sensitivity to sound Treatments prior to arrival: other (aspirin) Related Data Previous Rx's Medication Instructions Recorded fluticasone propionate 50 1 spray intranasal DAILY #150 mL 12/04/20 mcg/actuation nasal spray,suspension (Flonase Allergy Relief) lancets 33 gauge (TRUEplus Lancets) 33 gauge miscellaneous BID for 12/11/20 diabetes mellitus 50 days #100 ea lybkcfnedp-wbctdxhpgyvtk-tuloigzq 1 cap PO Q4-6H PRN headache #14 07/09/21 50 mg-300 mg-40 mg capsule caps (Fioricet) cholecalciferol (vitamin D3) 50 50 mcg PO DAILY 90 days #90 caps 11/21/21 mcg (2,000 unit) capsule erythromycin 5 mg/gram (0.5 %) eye 1 appl ophthalmic (eye) DAILY #3.5 08/21/22 ointment grams atorvastatin 20 mg tablet 20 mg PO BEDTIME 90 days #90 tabs 12/23/22 blood sugar diagnostic (FreeStyle 1 strip miscellaneous BID for 12/23/22 Lite Strips) diabetes mellitus 30 days #100 strips metformin 500 mg tablet 500 mg PO BID #180 tabs 12/23/22 Allergies Allergy/AdvReac Type Severity Reaction Status Date / Time diphenhydramine Allergy Shortness Verified 01/27/23 09:34 [From Benadryl] of Breath Review of Systems Review of Systems: Constitutional : No Fever, No Chills, No Fatigue ENT/Mouth : No sore throat, No Rhinorrhea Eyes: pos Eye Pain, No Swelling, No Redness Cardiovascular : No Chest Pain, No SOB, No Dyspnea on Exertion Respiratory : No Cough, No Sputum Gastrointestinal : pos Nausea, No Vomiting, No Diarrhea, No abdominal Pain Genitourinary : No Dysuria, No Urinary Frequency, No Hematuria, Musculoskeletal : No joint pain, No Myalgias, No Joint Swelling Skin : No Skin Lesions, No rash Neuro : No Weakness, No Numbness, No Dizziness, positive Headache Psych : No Anxiety/Panic, No Depression Heme/Lymph: No Bruising, No Bleeding,No Lymphadenopathy Endocrine : No Polyuria, No Polydipsia All other systems reviewed and are negative [facility] Past Medical History Attestation statement: The following information was validated with the patient. Medical History Hyperlipidemia LDL goal <100 Rash Left shoulder pain Morbid obesity Shortness of breath Chronic fatigue Pure hypercholesterolemia Diabetes mellitus Surgical History History of History of colonoscopy Family History Family History Father Hypertension Stroke Mother Hypertension Stroke Diabetes Maternal Aunt Cancer Brother No problems noted. Son No problems noted. Son No problems noted. Sister No problems noted. Sister No problems noted. Daughter No problems noted. Social History Social History Housing: Apartment Alcohol intake: never Patient Tobacco Use Status: Never used Tobacco e-Cigarette/Vaping Use: Never Used Second Hand Smoke Exposure: No Advance Directives: No Advance Directives Information Provided: No service: No Current occupational status: unemployed Cognitive needs: No Hearing needs: No Vision needs: No Physical Exam Vital Signs: Vital Signs: Last Vital Signs Temp 97.8 F 01/27/23 15:31 Pulse 85 01/27/23 15:31 Resp 16 01/27/23 15:31 BP 186/87 H 01/27/23 15:31 Pulse Ox 98 01/27/23 15:31 O2 Del Method Room Air 01/27/23 15:31 BMI result Body Mass Index 42.9 Appearance: Alert. Oriented X3. No acute distress. Eyes: Pupils equal, round and reactive to light. ENT: Pharynx normal. Neck: Normal inspection. Neck supple. no meningeal signs CVS: Normal heart rate and rhythm. Pulses normal. Respiratory: No respiratory distress. Breath sounds normal. Abdomen: Soft and nontender. Skin: Skin warm and dry. Normal skin color. Normal skin turgor. Extremities: No lower extremity edema. No calf ttp Neuro: Oriented X 3. No motor deficit. No sensory deficit. Course Course Course Narrative: signed out to oncoming provider Medications Administered Generic Name Dose Route Start Last Admin Trade Name Freq PRN Reason Stop Dose Admin Sodium Chloride 500 mls @ 500 mls/hr 01/27/23 15:15 01/27/23 15:38 Ns IV 01/27/23 16:14 500 mls/hr .Q1H RU Administration Discontinued Medications Generic Name Dose Route Start Last Admin Trade Name Freq PRN Reason Stop Dose Admin Acetaminophen 975 mg 01/27/23 15:33 01/27/23 15:38 Acetaminophen 325 Mg Tablet PO 01/27/23 15:34 975 mg ONCE ONE Administration Metoclopramide HCl 5 mg 01/27/23 15:15 01/27/23 15:37 Metoclopramide Hcl 10 Mg/2 Ml Vial IVPUSH 01/27/23 15:16 5 mg ONCE ONE Administration Medical Decision Making Medical Decision Making [facility] Narrative: 57 yo female with PMH of DM, HLD, notes this AM around 8 oclock here with c/o headache gradual onset same aura as last time without SAH has normal neuro exam and 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 At this time will need basic labs and CT head to rule out ICH or mass. no temporal ttp doubt GCA arteritis. Differential Diagnosis Differential Diagnoses: The differential diagnosis associated with the presentation includes headache, tension headache, dehydration Admission/Observation Consideration of admission/observation: Escalation of care including admission/observation considered Lab Data [facility] Lab Attestation statement: I reviewed the patient's lab results. 01/27/23 15:40 01/27/23 15:40 Labs: Lab Results 01/27/23 Range/Units 15:40 WBC 11.4 H (4.8-10.8) X10*3/uL RBC 4.30 (4.20-5.50) X10*6/uL Hgb 12.3 (12.0-16.0) g/dl Hct 37.6 (37.0-47.0) % MCV 87.4 (80.0-98.0) fL MCH 28.6 (27.0-33.0) pg MCHC 32.7 (31.0-35.0) g/dl RDW 12.9 (11.0-16.0) % Plt Count 282 (160-400) X10*3/uL MPV 11.6 (9.4-12.3) fL Immature Gran % (Auto) 0.3 (0.0-0.4) % Neut % (Auto) 60.7 (45-73) % Lymph % (Auto) 31.0 (20-40) % [place] % (Auto) 5.7 (2-11) % Eos % (Auto) 1.9 (0-4) % Baso % (Auto) 0.4 (0-2) % Lymph # (Auto) 3.5 (1.2-4.9) X10*3/uL [place] # (Auto) 0.7 (0.1-1.2) X10*3/uL Eos # (Auto) 0.2 (0.0-0.4) X10*3/uL Baso # (Auto) 0.0 (0.0-0.2) X10*3/uL Abs Immat Gran (auto) 0.03 (0.00-0.03) X10*3/uL Absolute Neuts (auto) 6.9 (2.0-8.3) x10*3/uL Absolute Nucleated RBC 0.000 (0.0-0.012) X10*3/uL Nucleated RBC % (auto) 0.0 (0.0-0.2) /100WBC External Record Review External record reviewed: Inpatient record Discharge Plan Discharge Clinical Impression: Migraine Qualifiers: Migraine type: with aura Status migrainosus presence: without status migrainosus Intractability: not intractable Qualified Code(s): G43.109 - Migraine with aura, not intractable, without status migrainosus Patient Disposition: Still a Patient Prescriptions: No Action lancets [TRUEplus Lancets] 33 gauge misc 33 gauge miscellaneous BID 50 Days Qty: 100 11RF cholecalciferol (vitamin D3) 50 mcg (2,000 unit) capsule 50 mcg PO DAILY 90 Days Qty: 90 0RF metformin 500 mg tablet 500 mg PO BID Qty: 180 6RF FreeStyle Lite Strips Strip 1 strip miscellaneous BID 30 Days Qty: 100 11RF atorvastatin 20 mg tablet 20 mg PO BEDTIME 90 Days Qty: 90 1RF itxgdeoylh-hjferyqqtbdvy-iljl [Fioricet] 50-300-40 mg capsule 1 cap PO Q4-6H PRN (Reason: headache) Qty: 14 0RF erythromycin 5 mg/gram (0.5 %) ointment 1 appl ophthalmic (eye) DAILY Qty: 3.5 0RF fluticasone propionate [Flonase Allergy Relief] 50 mcg/actuation spray,suspension 1 spray intranasal DAILY Qty: 150 0RF Rx Instructions: administer into each nostril
[2023-01-27 15:50] LABS: Basophils Percent Auto 0.4 % (0-2); Eosinophils Absolute Auto 0.2 X10*3/uL (0.0-0.4); Eosinophils Percent Auto 1.9 % (0-4); Hematocrit 37.6 % (37.0-47.0); Hemoglobin 12.3 g/dl (12.0-16.0); Imm Gran Abs Auto 0.03 X10*3/uL (0.00-0.03); Imm Gran Pct Auto 0.3 % (0.0-0.4); Lymphocytes Absolute Auto 3.5 X10*3/uL (1.2-4.9); Mean Corpuscular HGB Conc 32.7 g/dl (31.0-35.0); Mean Corpuscular Hemoglobin 28.6 pg (27.0-33.0); Mean Corpuscular Volume 87.4 fL (80.0-98.0); Mean Platelet Volume 11.6 fL (9.4-12.3); Monocytes Absolute Auto 0.7 X10*3/uL (0.1-1.2); Monocytes Percent Auto 5.7 % (2-11); Neutrophils Absolute Auto 6.9 x10*3/uL (2.0-8.3); Neutrophils Percent Auto 60.7 % (45-73); Platelet Count 282 X10*3/uL (160-400); Red Cell Distribution Width 12.9 % (11.0-16.0); White Blood Count 11.4 X10*3/uL (4.8-10.8)
[2023-01-27 16:29] LABS: Erythrocyte Sedimentation Rate 44 MM/HR (0-20)
[2023-01-27 16:38] LABS: Anion Gap 9 (12-20)
[2023-01-27 16:40] LABS: Blood Urea Nitrogen 11 mg/dL (9-16); Calcium 9.2 mg/dL (8.4-10.2); Carbon Dioxide 27 mmol/L (22-29); Chloride 109 mmol/L (96-108); Creatinine Clr Calc Pharmacy 91.5; Estimated Glomerular Filt Rate > 60; Glucose Random 103 mg/dL (60-115); Potassium 4.1 mmol/L (3.3-5.1); Sodium 141 mmol/L (135-145)
[2023-01-27 18:51] VITALS: BP 174/84; PULSE 78; RESP 14; TEMP 37.1; O2SAT 97
== END 2023-01-27 19:06 | disposition home or self-care (01) ==
PROVIDERS: Emergency Medicine; Emergency Provider Emergency Medicine Emergency Medical Services; PCP Internal Medicine
DX: G43.109 Migraine with aura, not intractable, without status migrainosus (principal); R11.2 Nausea with vomiting, unspecified; H53.143 Visual discomfort, bilateral; Z79.899 Other long term (current) drug therapy
CPT/HCPCS: 36415; 70450; 80048; 85025; 85652; 96361; 96374; 99284; 99285; J2765

== ENCOUNTER 2023-03-16 14:35 | Outpatient (AMB) | payer OTHER, SELFPAY ==
--- NOTE | 2023-03-16 14:41 | A.OFFPC_ITS ---
Vital Signs 03/16/23 14:42 Height 5 ft 1 in Weight 228 lb 2 oz BMI 43.1 BP 150/90 H Blood Pressure Location Lt brachial Position Sitting Pulse 79 Pulse Source Pulse Oximeter Pulse Oximetry (%) 97 Oxygen Delivery Method Room Air Intake Visit Reasons: High BP Intake Note: Patient is here today high blood pressure and headaches ongoing for 2 hrs. No dizziness or change of vision. Fence Post Driver Required: No Funding Specialist: Present Accompanied by: Son Allergies diphenhydramine [From Benadryl] Allergy (Verified 03/16/23 14:55) Shortness of Breath Medication List - Last Reconciled 03/16/23 by ANTONY Rodriguez atorvastatin 20 mg PO BEDTIME 90 days blood sugar diagnostic (FreeStyle Lite Strips) 1 strip miscellaneous BID 30 days miyxepjbzr-oeoraqnlsmmua-iyvd 50-300-40 mg (Fioricet) 1 cap PO Q4-6H PRN lancets (TRUEplus Lancets) 33 gauge miscellaneous BID 50 days metformin 500 mg PO BID Tobacco use date assessed: 03/16/23 Dental Screening Dental Screen Date: 03/16/23 Did you have a dental visit in the last 12 months?: Yes Did you have a dental problem in the last 6 months where you did not have access to dental care?: No Was dental information given to patient?: Patient has dentist HPI High BP HPI Details Patient is a 57-year-old female who presents today for the same day visit with high blood pressure this morning 197/105. Patient of Dr. Reddy, last visit 12/2021. Patient reports that she started headache and then family check her blood pressure and it was high. Patient reports similar symptoms couple months ago when she went to the emergency room with high blood pressure. Patient also has diabetes among others. No shortness of breath or chest pain. Reports right-sided headache 8/10 scale, did not use anything for headache. [facility] Medical History Hyperlipidemia LDL goal <100 Rash Left shoulder pain Morbid obesity Shortness of breath Chronic fatigue Pure hypercholesterolemia Diabetes mellitus Surgical History History of colonoscopy History of Family History Father Hypertension Stroke Mother Hypertension Stroke Diabetes Maternal Aunt Cancer Brother No problems noted. Son No problems noted. Son No problems noted. Sister No problems noted. Sister No problems noted. Daughter No problems noted. Social History Housing: Apartment Alcohol intake: current Alcohol intake frequency: holidays/special occasions only Patient Tobacco Use Status: Never used Tobacco e-Cigarette/Vaping Use: Never Used Second Hand Smoke Exposure: No service: No Current occupational status: unemployed Cognitive needs: No Hearing needs: No Vision needs: No Questionnaire PHQ-9 Over the last 2 weeks, how often have you been bothered by any of the following problems? 1. Little interest or pleasure in doing things: not at all 2. Feeling down, depressed, or hopeless: not at all 3. Trouble falling or staying asleep, or sleeping too much: not at all 4. Feeling tired or having little energy: not at all 5. Poor appetite or overeating: not at all 6. Feeling bad about yourself - or that you are a failure or have let yourself or your family down: not at all 7. Trouble concentrating on things, such as reading the newspaper or watching television: not at all 8. Moving or speaking so slowly that other people could have noticed. Or the opposite - being so fidgety or restless that you have been moving around a lot more than usual: not at all 9. Thoughts that you would be better off or of hurting yourself in some way: not at all Total score: 0 Depression Screening Interpretation: Negative Depression Screening Done: Yes 20426 - PHQ-9 Billing: Yes Source: Developed by Drs. Roderick Jay, Carissa Montague, Anup Reed and colleagues, with an educational yelitza from [employer] Document Preparation. Thrive Questionnaire Date Thrive assessed: 03/16/23 I am a: Patient What is your living situation today?: I have a steady place to live Within the past 12 months, did the food you bought not last and you didn't have the money to get more?: Never true Within the past 12 months, did you worry whether your food would run out before you got money to buy more?: Never true Do you have trouble paying for medicines?: No Do you have trouble getting transportation to medical appointments?: No Do you have trouble paying your heating and electricity bill?: No Do you have trouble taking care of your child, family member or friend?: No Do you have trouble with day-to-day activities such as bathing, preparing meals, shopping, managing finances, etc.?: No Are you currently unemployed and looking for a job?: No Are you interested in more education?: No Currently or been in a relationship where the following occur: no concerns reported AUDIT C Alcohol Use Questionnaire (AUDIT-C) 1. How often do you have a drink containing alcohol?: Never Total Score: 0 Score Reviewed/Action Taken: No AKILA-7 AMB Questionnaire AKILA-7 Date AKILA - 7 assessed: 03/16/23 Feeling nervous, anxious, or on edge: 0 = Not at all Not being able to stop or control worryin = Not at all Worrying too much about different things: 0 = Not at all Trouble relaxin = Not at all Being so restless that it is hard to sit still: 0 = Not at all Becoming easily annoyed or irritable: 0 = Not at all Feeling afraid as if something awful might happen: 0 = Not at all Total AKILA-7 score (0-4 normal; 5-9 mild; 10-14 moderate; 15-21 severe): 0 Source: Developed by Drs. Roderick Jay, Carissa Montague, Anup Reed and colleagues, with an educational yelitza from [employer] Document Preparation. AKILA-7 Assessment Billing AKILA-7 Assessment Tool: AKILA-7 Assessment 73151 Review of Systems Const Denies body aches, Denies chills, Denies fever(s) and Reports headache(s) Eyes Denies change in vision ENT Denies dizziness, Denies otalgia, Reports headache(s), Denies nasal discharge, Denies sinus pain and Denies sore throat Card Denies chest pain, Denies edema, Denies lightheadedness and Denies dyspnea Resp Denies cough, Denies dyspnea and Denies wheezing GI Denies abdominal pain Denies dysuria Musc Denies myalgias Neuro Denies dizziness and Reports headache(s) Aller/Immun Denies wheezing Physical exam (Primary Care) Vital Signs: Last Vital Signs Pulse 79 03/16/23 14:42 BP 150/90 H 03/16/23 14:42 Pulse Ox 97 03/16/23 14:42 Oxygen Delivery Method Room Air 03/16/23 14:42 BMI result Body Mass Index 43.1 Tobacco/Smoking Status: Tobacco use Status Tobacco use date assessed 03/16/23 03/16/23 14:43 Patient Tobacco Use Status Never used Tobacco 03/16/23 14:43 e-Cigarette/Vaping Use Never Used 03/16/23 14:43 PHQ-9: PHQ-9 Score PHQ-9: Total score 0 03/16/23 14:57 Depression Screening Interpretation: Negative Thrive Assessment: Date of Thrive Assessment Date Thrive assessed 03/16/23 03/16/23 14:43 Currently or been in a relationship where the following occur: no concerns reported Const General: cooperative and no acute distress Orientation/consciousness: patient oriented x3 HENMT Head: Yes normocephalic and Yes atraumatic Throat: Yes posterior oropharynx normal Eyes General: appearance normal, both eyes and all related structures Neck Neck: Yes normal visual inspection and Yes full ROM Resp Effort & Inspection: normal respiratory effort and able to speak in complete sentences Auscultation: clear to auscultation bilaterally, no crackles, no rales, no rhonchi and no wheezes Cardio Rate: regular rate Rhythm: regular rhythm Heart sounds: S1 normal heart sound present, S2 normal heart sound present and no murmurs GI Auscultation: normal bowel sounds Skin General skin exam: no rashes or lesions noted Neuro General: patient oriented x3 Gait exam (Neuro): Normal gait present Extrem General: Yes full ROM and No edema Results AMB Hemoglobin A1c AMB Hemoglobin A1c 7.1 % Last Edit by JENNIFER Polk on 03/16/23 14:58 Results Reviewed Results Reviewed: Laboratory Last Values Hgb A1c (Clinic) 7.1 % (4.0-6.0) H 03/16/23 14:43 Assessment and Plan Assessment & Plan (1) High blood pressure: Code(s): I10 - Essential (primary) hypertension Plan: Goal BP equal or less than 140/90, blood pressure elevated in the office as well patient with headache Elevated blood pressure at home this morning History of elevated blood pressures in the past Start amlodipine 2.5 mg daily-educated about possible adverse reactions and when to notify provider Follow-up with nurse in 2 weeks for BP recheck Signs and symptoms reviewed when to notify provider or go to the emergency department Patient agreed with the plan Monitor blood pressures at home Follow-up with PCP in 4 months (2) Diabetes mellitus: Code(s): E11.9 - Type 2 diabetes mellitus without complications Qualifiers: Diabetes mellitus type: type 2 Diabetes mellitus [facility] insulin use: without [facility] use Diabetes mellitus complication status: without complication Qualified Code(s): E11.9 - Type 2 diabetes mellitus without comp lications Plan: A1c 7.1 today, goal less than 7 Continue metformin Low-carbohydrate diet and weight loss Orders: Orders AMB Hemoglobin A1c Today E11.9 - Type 2 diabetes mellitus without complications Medications: New amlodipine 2.5 mg PO DAILY 30 tabs 2RF I10 - Essential (primary) hypertension Coding Level of Care Code Est Pt Level 4 (32466) Diagnoses High blood pressure I10 Type 2 diabetes mellitus without complication, without long-term current use of insulin E11.9 Diabetes mellitus type: type 2 Diabetes mellitus [facility] insulin use: without [facility] use Diabetes mellitus complication status: without complication Additional Codes AKILA-7 Assessment Billing - AKILA-7 Assessment Tool: AKILA-7 Assessment 22064 ([id number])
[2023-03-16 14:42] VITALS: BP 150/90; PULSE 79; O2SAT 97; BMI 43.1
== END 2023-03-16 16:06 | disposition home or self-care (01) ==
PROVIDERS: PCP Internal Medicine; Visit Provider Nurse Practitioner Family
DX: I10 Essential (primary) hypertension (principal); E11.9 Type 2 diabetes mellitus without complications; E66.01 Morbid (severe) obesity due to excess calories; Z68.41 Body mass index [BMI] 40.0-44.9, adult
CPT/HCPCS: 83036; 99214

== ENCOUNTER 2023-08-05 13:38 | Outpatient (AMB) | payer OTHER, SELFPAY ==
[2023-08-05 13:51] VITALS: BP 132/86; BMI 42.5
--- NOTE | 2023-08-05 13:51 | MHC.PC.OV ---
Vital Signs 08/05/23 13:51 Height 5 ft 1 in Weight 225 lb BMI 42.5 BP 132/86 Blood Pressure Location Lt brachial Position Sitting Intake Visit Reasons: migraines Intake Note: Patient here for a follow up migraines [employer] Advisor Required: No Accompanied by: Aunt Allergies diphenhydramine [From Benadryl] Allergy (Verified 08/05/23 14:03) Shortness of Breath Medication List - Last Reconciled 08/05/23 by Selina Cariron MD amlodipine 2.5 mg PO DAILY 90 days blood sugar diagnostic (FreeStyle Lite Strips) 1 strip miscellaneous BID 30 days vndhojyxhx-czecreijtfzah-rgho 50-300-40 mg (Fioricet) 1 cap PO Q4-6H PRN lancets (TRUEplus Lancets) 33 gauge miscellaneous BID 50 days metformin 500 mg PO BID sumatriptan succinate 25 mg PO Q2-4H PRN 30 days Tobacco use date assessed: 08/05/23 Dental Screening Dental Screen Date: 08/05/23 Did you have a dental visit in the last 12 months?: No Did you have a dental problem in the last 6 months where you did not have access to dental care?: No Was dental information given to patient?: Patient has dentist HPI HPI Comments History of Present Illness Details This is a 57-year-old female with diabetes mellitus type 2, hypertension, morbid obesity and migraines that comes accompanied by aunt for follow-up on her conditions. A1c within goal. Blood pressure stable. She is morbidly obese with a BMI of 42.5 and declines weight loss surgery. Interested in breast reduction surgery but as I explained to her her BMI is too elevated for insurance to accepted. Migraines happen few times a month and has been stable with medications. Denies any chest pain or shortness of breath. [facility] Medical History (Updated 08/05/23 @ 15:26 by Selina Carrion MD) Hyperlipidemia LDL goal <100 Rash Left shoulder pain Morbid obesity Shortness of breath Chronic fatigue Pure hypercholesterolemia Diabetes mellitus Surgical History History of colonoscopy History of Family History Father Hypertension Stroke Mother Hypertension Stroke Diabetes Maternal Aunt Cancer Brother No problems noted. Son No problems noted. Son No problems noted. Sister No problems noted. Sister No problems noted. Daughter No problems noted. Social History Housing: Apartment Alcohol intake: former Patient Tobacco Use Status: Never used Tobacco e-Cigarette/Vaping Use: Never Used Second Hand Smoke Exposure: No service: No Current occupational status: unemployed Cognitive needs: No Hearing needs: No Vision needs: No Questionnaire PHQ-9 Over the last 2 weeks, how often have you been bothered by any of the following problems? 1. Little interest or pleasure in doing things: not at all 2. Feeling down, depressed, or hopeless: not at all 3. Trouble falling or staying asleep, or sleeping too much: not at all 4. Feeling tired or having little energy: not at all 5. Poor appetite or overeating: not at all 6. Feeling bad about yourself - or that you are a failure or have let yourself or your family down: not at all 7. Trouble concentrating on things, such as reading the newspaper or watching television: not at all 8. Moving or speaking so slowly that other people could have noticed. Or the opposite - being so fidgety or restless that you have been moving around a lot more than usual: not at all 9. Thoughts that you would be better off or of hurting yourself in some way: not at all Total score: 0 Depression Screening Interpretation: Negative Depression Screening Done: Yes 80092 - PHQ-9 Billing: Yes Source: Developed by Drs. Roderick Jay, Carissa Montague, Anup Reed and colleagues, with an educational yelitza from [employer]. Thrive Questionnaire Date Thrive assessed: 08/05/23 I am a: Patient What is your living situation today?: I have a steady place to live Within the past 12 months, did the food you bought not last and you didn't have the money to get more?: Never true Within the past 12 months, did you worry whether your food would run out before you got money to buy more?: Never true Do you have trouble paying for medicines?: No Do you have trouble getting transportation to medical appointments?: No Do you have trouble paying your heating and electricity bill?: No Do you have trouble taking care of your child, family member or friend?: No Do you have trouble with day-to-day activities such as bathing, preparing meals, shopping, managing finances, etc.?: No Are you currently unemployed and looking for a job?: No Are you interested in more education?: No Please select the resources that you would like help with: None Currently or been in a relationship where the following occur: no concerns reported THRIVE Score: 0 AUDIT C Alcohol Use Questionnaire (AUDIT-C) 1. How often do you have a drink containing alcohol?: Never Total Score: 0 Score Reviewed/Action Taken: No AKILA-7 AMB Questionnaire AKILA-7 Date AKILA - 7 assessed: 08/05/23 Feeling nervous, anxious, or on edge: 0 = Not at all Not being able to stop or control worryin = Not at all Worrying too much about different things: 0 = Not at all Trouble relaxin = Not at all Being so restless that it is hard to sit still: 0 = Not at all Becoming easily annoyed or irritable: 0 = Not at all Feeling afraid as if something awful might happen: 0 = Not at all Total AKILA-7 score (0-4 normal; 5-9 mild; 10-14 moderate; 15-21 severe): 0 Source: Developed by Drs. Roderick Jay, Carissa Montague, Anup Reed and colleagues, with an educational yelitza from [employer]. AKILA-7 Assessment Billing AKILA-7 Assessment Tool: AKILA-7 Assessment 25928 Review of Systems Const All systems reviewed & are unremarkable except as noted in HPI and below Eyes Reports no additional complaints, Denies change in vision and Denies other visual disturbances Card Reports no additional complaints Resp Reports no additional complaints Physical exam (Primary Care) Vital Signs: Last Vital Signs BP 132/86 08/05/23 13:51 BMI result Body Mass Index 42.5 Tobacco/Smoking Status: Tobacco use Status Tobacco use date assessed 08/05/23 08/05/23 13:56 Patient Tobacco Use Status Never used Tobacco 08/05/23 13:56 e-Cigarette/Vaping Use Never Used 08/05/23 13:56 PHQ-9: PHQ-9 Score PHQ-9: Total score 0 08/05/23 14:06 Depression Screening Interpretation: Negative Thrive Assessment: Date of Thrive Assessment Date Thrive assessed 08/05/23 08/05/23 13:56 Currently or been in a relationship where the following occur: no concerns reported Resp Effort & Inspection: normal respiratory effort Auscultation: clear to auscultation bilaterally Cardio Jugular venous distension: no JVD Rate: regular rate Rhythm: regular rhythm Heart sounds: S1 normal heart sound present and S2 normal heart sound present Extrem General: Yes full ROM Results AMB Hemoglobin A1c AMB Hemoglobin A1c 7.0 % Last Edit by JENNIFER Kaplan on 08/05/23 13:59 Results Reviewed Results Reviewed: Laboratory Last Values Hgb A1c (Clinic) 7.0 % (4.0-6.0) H 08/05/23 13:56 Assessment and Plan Assessment & Plan (1) Diabetes mellitus: Code(s): E11.9 - Type 2 diabetes mellitus without complications Qualifiers: Diabetes mellitus type: type 2 Diabetes mellitus [employer]termaker continuous churn insulin use: without alf use Diabetes mellitus complication status: without complication Qualified Code(s): E11.9 - Type 2 diabetes mellitus without complications Plan: Continue metformin. Start Ozempic. A1c goal is equal or less than 7%. (2) Morbid obesity: Code(s): E66.01 - Morbid (severe) obesity due to excess calories Plan: Start diet and exercise. BMI goal is less than 30. (3) Essential hypertension: Code(s): I10 - Essential (primary) hypertension Plan: Continue amlodipine. Blood pressure goal is equal or less than 130/80. (4) Migraine: Code(s): G43.909 - Migraine, unspecified, not intractable, without status migrainosus Plan: Continue sumatriptan as needed. Orders: Orders AMB Hemoglobin A1c Today E11.9 - Type 2 diabetes mellitus without complications Lipid Panel Today E78.5 - Hyperlipidemia, unspecified Microalbumin, Random (w Creat) Today E11.9 - Type 2 diabetes mellitus without complications Comprehensive [place]. Panel Fast Today E11.9 - Type 2 diabetes mellitus without complications Medications: New semaglutide (Ozempic) for 4 weeks 0.25 mg (0.368 mL) subcut QWEEK 30 days 1.84 mL 0RF E11.9 - Type 2 diabetes mellitus without complications Coding Level of Care Code Est Pt Level 4 (19854) Diagnoses Type 2 diabetes mellitus without complication, without long-term current use of insulin E11.9 Diabetes mellitus type: type 2 Diabetes mellitus alf insulin use: without buttermaker continuous churn use Diabetes mellitus complication status: without complication Morbid obesity E66.01 Essential hypertension I10 Migraine G43.909 Additional Codes AKILA-7 Assessment Billing - AKILA-7 Assessment Tool: AKILA-7 Assessment 57596 ([id number]) Time Spent (min) 21
== END 2023-08-05 14:16 | disposition home or self-care (01) ==
PROVIDERS: PCP Internal Medicine; Visit Provider Internal Medicine
DX: E11.9 Type 2 diabetes mellitus without complications (principal); E66.01 Morbid (severe) obesity due to excess calories; Z68.41 Body mass index [BMI] 40.0-44.9, adult; I10 Essential (primary) hypertension; G43.909 Migraine, unspecified, not intractable, without status migrainosus
CPT/HCPCS: 83036; 99214

== ENCOUNTER 2023-10-28 04:26 | Emergency (ER) | payer OTHER, SELFPAY ==
--- NOTE | ~2023-10-28 | CT_ITS ---
EXAMINATION: CT ABDOMEN AND PELVIS WITHOUT CONTRAST CLINICAL INFORMATION: Flank pain. COMPARISON: None available. TECHNIQUE: Multidetector volumetric imaging was performed from the superior aspect of the liver through the pubic symphysis. Sagittal and coronal reformatted images were obtained on the technologist's workstation. This CT examination was performed using dose optimization techniques as appropriate, variously including the following: *Automated exposure control *Adjustment of mA and/or kV according to patient size (this includes techniques or standardized protocols for targeted exams where dose is matched to indication/reason for exam; i.e. extremities or head) *Use of iterative reconstruction technique DLP: 889 mGy-cm FINDINGS: LUNG BASES: The visualized lung bases are unremarkable. LIVER, GALLBLADDER, AND BILIARY TREE: The liver is normal in size, shape, and attenuation. No focal hepatic lesion or biliary ductal dilatation is present. The gallbladder is unremarkable with no evidence of radiopaque gallstones, gallbladder wall thickening, or obvious pericholecystic inflammatory changes. PANCREAS: Unremarkable. SPLEEN: Unremarkable. ADRENAL GLANDS: Unremarkable. KIDNEYS AND URETERS: The kidneys are normal in size, shape, and attenuation. No hydronephrosis, hydroureter, or calculi seen. No perinephric stranding. There is a 4 cm cyst mid to lower pole left kidney. BLADDER: Unremarkable. GASTROINTESTINAL TRACT: There are scattered colonic diverticula without diverticulitis. The appendix is unremarkable. ABDOMINAL WALL: No significant hernia is appreciated. LYMPH NODES: Normal. VASCULAR: Unremarkable. PELVIC VISCERA: Unremarkable. OSSEOUS STRUCTURES: Unremarkable. CT/CT abdomen pelvis wo IV con IMPRESSION: No evidence of nephrolithiasis or obstructive uropathy. Scattered colonic diverticula without diverticulitis. Fleischner guidelines were followed.
[2023-10-28 04:54] VITALS: BP 175/76; PULSE 83; RESP 18; TEMP 36.5; O2SAT 100; BMI 43.1
[2023-10-28 05:00] VITALS: BP 186/94; PULSE 76; RESP 18; TEMP 36.7; O2SAT 97
--- NOTE | 2023-10-28 05:01 | MHC.EDTECH ---
Patient came in from the waiting room,patient was changed into hospital attire,vitals taken,BP is elevated 186/94, RN and MD aware. Patient ambulated to the bathroom with a slow and steady gait, urine sample obtained and sent to lab
--- NOTE | 2023-10-28 05:03 | ED.GENADULT ---
HPI - General Adult General Chief complaint: Back Pain/Injury Stated complaint: back pain? Time Seen by Provider: 10/28/23 05:02 Source: patient Mode of arrival: ambulatory History of Present Illness ED Provider: Dr Barry HPI narrative: 58-year-old female with history of diabetes/hypertension comes in with onset left lower/flank pain that started yesterday, seemed to subside and then last night at approximately 23:00 started again with associated nausea, no vomiting or fever/chills and denies any urinary symptoms and states she is continued to pass flatus and have a bowel movement, denies any history kidney stones or pain similar to this previously. She denies any traumatic event or change in activity regimen. Related Data Previous Rx's ?Medication ?Instructions ?Recorded lancets 33 gauge (TRUEplus Lancets) 33 gauge miscellaneous BID for 12/11/20 diabetes mellitus 50 days #100 ea blood sugar diagnostic (FreeStyle 1 strip miscellaneous BID for 12/23/22 Lite Strips) diabetes mellitus 30 days #100 strips metformin 500 mg tablet 500 mg PO BID #180 tabs 12/23/22 amlodipine 2.5 mg tablet 2.5 mg PO DAILY 90 days #90 tabs 04/14/23 sumatriptan succinate 25 mg tablet 25 mg PO Q2-4H PRN migraine 05/05/23 headache 30 days #9 tabs izsqkchnrg-ckffdwcigaflk-kzbenyht 1 cap PO Q4-6H PRN headache #14 05/12/23 50 mg-300 mg-40 mg capsule caps (Fioricet) semaglutide 0.25 mg or 0.5 mg (2 0.25 mg (0.368 mL) subcut QWEEK 30 08/05/23 mg/3 mL) subcutaneous pen injector days #1.84 mL (Ozempic) Allergies Allergy/AdvReac Type Severity Reaction Status Date / Time diphenhydramine Allergy Shortness Verified 10/28/23 04:57 [From Benadryl] of Breath Review of Systems Review of Systems: Pertinent positives and negatives as stated in HPI [facility] Past Medical History Source: nursing notes reviewed Medical History Hyperlipidemia LDL goal <100 Rash Left shoulder pain Morbid obesity Shortness of breath Chronic fatigue Pure hypercholesterolemia Diabetes mellitus Surgical History History of colonoscopy History of Family History Family History Father Hypertension Stroke Mother Hypertension Stroke Diabetes Maternal Aunt Cancer Brother No problems noted. Son No problems noted. Son No problems noted. Sister No problems noted. Sister No problems noted. Daughter No problems noted. Social History Social History Housing: Apartment Alcohol intake: former Patient Tobacco Use Status: Never used Tobacco e-Cigarette/Vaping Use: Never Used Second Hand Smoke Exposure: No Advance Directives: No Advance Directives Information Provided: No Do you have a plan to hurt others: No Plan Patient : No service: No Current occupational status: unemployed Cognitive needs: No Hearing needs: No Vision needs: No Physical Exam ED Vital Signs: Vital Signs - 24 hr 10/28/23 04:54 10/28/23 05:00 10/28/23 06:00 Temperature 97.7 F 98.0 F 98 F Pulse Rate 83 76 82 Respiratory Rate 18 18 19 Blood Pressure 175/76 H 186/94 H 181/79 H Pulse Oximetry 100 97 98 Oxygen Delivery Method Room Air Room Air Room Air BMI result Body Mass Index 43.1 VITAL SIGNS: Reviewed. GENERAL: Well developed, well nourished, in no acute distress. HEAD: Normocephalic/atraumatic EYES: PERRLA, EOMI EARS: Ext canals without abnormality NOSE: Nares patent bilateral OROPHARYNX: no oral lesions noted, posterior pharynx clear NECK: Supple, no adenopathy LUNGS: Normal breath sounds. No adventitious sounds or accessory muscle use. SpO2<97> CARDIOVASCULAR: Regular rate and rhythm without noted murmurs ABDOMEN: Soft, mild tenderness to palpation left lower quadrant, non-distended with bowel sounds. MUSCULOSKELETAL: No tenderness, deformities, or effusions noted on gross inspection. EXTREMITIES: No cyanosis, clubbing or edema. SKIN: Inspection of the skin reveals no rashes NEUROLOGIC: Alert and oriented x 4. Strength and sensation to light touch were grossly intact x 4. Medications Administered Discontinued Medications Generic Name Dose Route Start Last Admin Trade Name Freq PRN Reason Stop Dose Admin Fentanyl 25 mcg 10/28/23 05:52 10/28/23 05:58 Fentanyl Citrate/Pf 100 Mcg/2 Ml Vial IVPUSH 10/28/23 05:53 25 mcg ONCE ONE Administration Protocol Sodium Chloride 1,000 mls @ 999 mls/hr 10/28/23 05:15 10/28/23 06:21 Ns IV 10/28/23 06:15 Infused .Q1H1M RU Infusion Ketorolac Tromethamine 15 mg 10/28/23 05:02 10/28/23 05:08 Ketorolac Tromethamine 30 Mg/Ml Vial IVPUSH 10/28/23 05:03 15 mg ONCE ONE Administration Ondansetron HCl 4 mg 10/28/23 05:02 10/28/23 05:08 Ondansetron Hcl 4 Mg/2 Ml Vial IVPUSH 10/28/23 05:03 4 mg ONCE ONE Administration Medical Decision Making Medical Decision Making [facility] Narrative: 58-year-old female with history and clinical presentation, DDX: Renal colic, musculoskeletal pain, urinary tract infection and lower clinical suspicion for pyelonephritis/diverticulitis. INTERVENTION: 1 L of IV fluids, ketorolac, Zofran, 25 mcg of fentanyl I reviewed all investigations and hematologic indices demonstrates a chronic leukocytosis, patient is afebrile, patient also has a slight normocytic anemia without history or clinical findings to suggest active bleeding. There is no thrombocytopenia. Chemistry indices are negative for DONAVON/electrolyte or liver enzyme derangements. Urinalysis is negative for UTI or hematuria. CT scan is negative for hydronephrosis/ureterolithiasis/diverticulitis or evidence to suggest obstruction. My interpretation is that patient is likely experiencing musculoskeletal pain likely referred from the back and was discharged with recommendations for her to continue with vxyj-txd-idqgboj analgesics/lidocaine patch and follow-up with your primary care doctor. Differential Diagnosis Differential Diagnoses: The differential diagnosis associated with the presentation includes Please see the discussion above Admission/Observation Consideration of admission/observation: Escalation of care including admission/observation considered Please see the discussion above Lab Data [facility] Lab Attestation statement: I reviewed the patient's lab results. Please see the discussion above 10/28/23 05:04 10/28/23 05:17 Labs: Lab Results 10/28/23 10/28/23 10/28/23 Range/Units 04:58 05:04 05:17 WBC 12.7 H (4.8-10.8) X10*3/uL RBC 4.02 L (4.20-5.50) X10*6/uL Hgb 11.7 L (12.0-16.0) g/dl Hct 35.0 L (37.0-47.0) % MCV 87.1 (80.0-98.0) fL MCH 29.1 (27.0-33.0) pg MCHC 33.4 (31.0-35.0) g/dl RDW 12.8 (11.0-16.0) % Plt Count 265 (160-400) X10*3/uL MPV 11.7 (9.4-12.3) fL Immature Gran % (Auto) 0.4 (0.0-0.4) % Neut % (Auto) 71.8 (45-73) % Lymph % (Auto) 22.4 (20-40) % Porter % (Auto) 3.9 (2-11) % Eos % (Auto) 1.1 (0-4) % Baso % (Auto) 0.4 (0-2) % Lymph # (Auto) 2.8 (1.2-4.9) X10*3/uL Porter # (Auto) 0.5 (0.1-1.2) X10*3/uL Eos # (Auto) 0.1 (0.0-0.4) X10*3/uL Baso # (Auto) 0.1 (0.0-0.2) X10*3/uL Abs Immat Gran (auto) 0.05 H (0.00-0.03) X10*3/uL Absolute Neuts (auto) 9.1 H (2.0-8.3) x10*3/uL Absolute Nucleated RBC 0.000 (0.0-0.012) X10*3/uL Nucleated RBC % (auto) 0.0 (0.0-0.2) /100WBC Sodium 137 (135-145) mmol/L Potassium 4.4 (3.3-5.1) mmol/L Chloride 106 (96-108) mmol/L Carbon Dioxide 24 (22-29) mmol/L Anion Gap 11 L (12-20) BUN 11 (9-16) mg/dL Creatinine 0.71 (0.5-1.4) mg/dL Estim Creat Clear Calc 93.2 Estimated GFR > 60 Random Glucose 171 H (60-115) mg/dL Calcium 9.3 (8.4-10.2) mg/dL Total Bilirubin 0.2 (0.0-1.0) mg/dL AST 15 (5-31) U/L ALT 16 (0-31) U/L Alkaline Phosphatase 78 (39-117) U/L Total Protein 7.6 (6.5-8.0) g/dL Albumin 3.8 (3.5-5.0) g/dL Urine Color Yellow Urine Appearance Clear Urine pH 6.5 (5.0-9.0) Ur Specific [place] 1.015 (1.005-1.025) Urine Protein Negative (Neg-Trace) mg/dL Urine Glucose (UA) Negative (Negative) mg/dL Urine Ketones Negative (Negative) mg/dL Urine Blood Negative (Negative) Urine Nitrite Negative (Negative) Ur Leukocyte Esterase Negative (Negative) Radiology Impression Discussion of test interpretation with radiology: I have reviewed the radiologist's reading. Radiologist Impression: Please see the discussion above External Record Review External record reviewed: Outpatient record and Prior outpatient labs Chronic Conditions Patient?s care impacted by: Diabetes Critical Care Time Critical Care Time Critical Care Time: Yes Total Critical Care Time: 45 Attestation: I personally attest to this time spent taking care of the patient. Discharge Plan Discharge Clinical Impression: Left flank pain, Musculoskeletal pain Patient Disposition: Home, Self-Care Instructions: Musculoskeletal Pain (ED), Flank Pain (ED) Additional Instructions: 1. Tylenol 1000 mg, orally, every 6 hours as needed for pain control. Do not exceed 4000 mg within 24 hours. 2. Ibuprofen 400 mg, orally with milk or food, every 6 hours as needed for pain control. 3. Recommend lidocaine patch to area of maximal tenderness as directed on the outside packaging. Your workup was otherwise negative today, I highly recommend that you follow-up with your primary care doctor for re-evaluation and further outpatient management. Prescriptions: No Action lancets [TRUEplus Lancets] 33 gauge misc 33 gauge miscellaneous BID 50 Days Qty: 100 11RF metformin 500 mg tablet 500 mg PO BID Qty: 180 6RF FreeStyle Lite Strips Strip 1 strip miscellaneous BID 30 Days Qty: 100 11RF amlodipine 2.5 mg tablet 2.5 mg PO DAILY 90 Days Qty: 90 2RF sumatriptan succinate 25 mg tablet 25 mg PO Q2-4H PRN (Reason: migraine headache) 30 Days Qty: 9 0RF Rx Instructions: do not exceed 8 doses per 24 hrs ziikyvznlk-zyljhjbujqjvj-yppd [Fioricet] 50-300-40 mg capsule 1 cap PO Q4-6H PRN (Reason: headache) Qty: 14 0RF Ozempic 0.25 mg or 0.5 mg (2 mg/3 mL) pen injector 0.25 mg subcut QWEEK 30 Days Qty: 1.84 0RF Rx Instructions: for 4 weeks Referrals: Selina Mckeon MD [Primary Care Provider] - Print Language: Ethiopian
[2023-10-28] MEDS: 0.9 % Sodium Chloride 1,000 ML 999 ML IV (05:07)
[2023-10-28 05:08] LABS: MANUAL DIFF FLAG NO
[2023-10-28] MEDS: Ketorolac Tromethamine 30 MG/ML VIAL 15 MG IVPUSH (05:08)
[2023-10-28] MEDS: ondansetron HCL 4 MG/2 ML VIAL IVPUSH (05:08)
[2023-10-28 05:09] LABS: Basophils Absolute Auto 0.1 X10*3/uL (0.0-0.2); Basophils Percent Auto 0.4 % (0-2); Eosinophils Absolute Auto 0.1 X10*3/uL (0.0-0.4); Eosinophils Percent Auto 1.1 % (0-4); Hemoglobin 11.7 g/dl (12.0-16.0); Imm Gran Abs Auto 0.05 X10*3/uL (0.00-0.03); Imm Gran Pct Auto 0.4 % (0.0-0.4); Lymphocytes Absolute Auto 2.8 X10*3/uL (1.2-4.9); Lymphocytes Percent Auto 22.4 % (20-40); Mean Corpuscular HGB Conc 33.4 g/dl (31.0-35.0); Mean Corpuscular Hemoglobin 29.1 pg (27.0-33.0); Mean Corpuscular Volume 87.1 fL (80.0-98.0); Mean Platelet Volume 11.7 fL (9.4-12.3); Monocytes Absolute Auto 0.5 X10*3/uL (0.1-1.2); Monocytes Percent Auto 3.9 % (2-11); Neutrophils Absolute Auto 9.1 x10*3/uL (2.0-8.3); Neutrophils Percent Auto 71.8 % (45-73); Platelet Count 265 X10*3/uL (160-400); Red Blood Count 4.02 X10*6/uL (4.20-5.50); Red Cell Distribution Width 12.8 % (11.0-16.0); White Blood Count 12.7 X10*3/uL (4.8-10.8)
[2023-10-28 05:10] LABS: Appearance Urine Clear; Color Urine Yellow; Glucose Urine UA Negative (Negative); Leukocyte Esterase Urine Negative (Negative); Nitrite Urine Negative (Negative); PH 6.5 (5.0-9.0); Specific Gravity - Urine 1.015 (1.005-1.025); Urine Blood Negative (Negative); Urine Ketones Negative (Negative); Urine Protein Negative (Neg-Trace)
[2023-10-28 05:36] LABS: Alanine Aminotransferase 16 U/L (0-31); Albumin Level 3.8 g/dL (3.5-5.0); Alkaline Phosphatase 78 U/L (39-117); Anion Gap 11 (12-20); Aspartate Amino Transferase 15 U/L (5-31); Bilirubin Total 0.2 mg/dL (0.0-1.0); Blood Urea Nitrogen 11 mg/dL (9-16); Calcium 9.3 mg/dL (8.4-10.2); Carbon Dioxide 24 mmol/L (22-29); Chloride 106 mmol/L (96-108); Creatinine Clr Calc Pharmacy 93.2; Estimated Glomerular Filt Rate > 60; Glucose Random 171 mg/dL (60-115); Potassium 4.4 mmol/L (3.3-5.1); Sodium 137 mmol/L (135-145); Total Protein 7.6 g/dL (6.5-8.0)
[2023-10-28] MEDS: fentaNYL citrate/PF 100 MCG/2 ML VIAL 25 MCG IVPUSH (05:58)
[2023-10-28 06:00] VITALS: BP 181/79; PULSE 82; RESP 19; TEMP 36.6; O2SAT 98
[2023-10-28 06:41] VITALS: BP 181/79; PULSE 82; RESP 19; TEMP 36.6; O2SAT 98
[2023-10-28] MEDS: Lidocaine 4 % Patch ADH..PATCH 1 PATCH TRANSDERMA (07:44)
[2023-10-28 07:46] VITALS: BP 186/90; PULSE 76; RESP 20; O2SAT 100
--- NOTE | 2023-10-28 07:47 | PC.NURSE ---
Pt awaiting ride home from son. Oxycodone and Lido patch ordered, pt refused Oxycodone but Lido patch placed to left lower back
[2023-10-28] MEDS: Acetaminophen 325 MG TABLET 975 MG PO (08:26)
== END 2023-10-28 09:16 | disposition home or self-care (01) ==
PROVIDERS: Emergency Provider Student in an Organized Health Care Education/Training Program; PCP Internal Medicine
DX: R10.9 Unspecified abdominal pain (principal); M79.18 Myalgia, other site; E11.9 Type 2 diabetes mellitus without complications; I10 Essential (primary) hypertension; E78.00 Pure hypercholesterolemia, unspecified; Z79.84 Long term (current) use of oral hypoglycemic drugs; Z79.899 Other long term (current) drug therapy
CPT/HCPCS: 36415; 74176; 80053; 81003; 85025; 96361; 96374; 96375; 99284; 99285; J1885; J2405; J3010

== ENCOUNTER 2023-10-31 11:06 | Emergency (ER) | payer OTHER, SELFPAY ==
--- NOTE | ~2023-10-31 | CT_ITS ---
EXAMINATION: CT ABDOMEN AND PELVIS WITHOUT CONTRAST CLINICAL INFORMATION: Left abdominal pain COMPARISON: CT abdomen from 10/28/2023 TECHNIQUE: Multidetector volumetric imaging was performed from the superior aspect of the liver through the pubic symphysis. Sagittal and coronal reformatted images were obtained on the technologist's workstation. This CT examination was performed using dose optimization techniques as appropriate, variously including the following: *Automated exposure control *Adjustment of mA and/or kV according to patient size (this includes techniques or standardized protocols for targeted exams where dose is matched to indication/reason for exam; i.e. extremities or head) *Use of iterative reconstruction technique DLP: 746 mGy-cm FINDINGS: LUNG BASES: No pneumothorax. No large pleural effusion. LIVER, GALLBLADDER, AND BILIARY TREE: The liver is normal in size and shape. Decreased hepatic attenuation suggesting hepatic steatosis. No focal hepatic lesion or biliary ductal dilatation is present. Dependent layering within the gallbladder lumen which may reflect vicarious excretion in the setting of contrast administration versus echogenic bile. No wall thickening or pericholecystic fluid. PANCREAS: Unremarkable. SPLEEN: Unremarkable. ADRENAL GLANDS: Unremarkable. KIDNEYS AND URETERS: Left renal cystic focus simple appearing not requiring follow-up. The kidneys are normal in size, shape, and attenuation. No hydronephrosis, hydroureter, or calculi seen. No perinephric stranding. BLADDER: Unremarkable. GASTROINTESTINAL TRACT: Colonic diverticulosis without acute diverticulitis. The small and large bowel are unremarkable. The appendix is unremarkable. ABDOMINAL WALL: Small fat filled umbilical hernia. LYMPH NODES: No enlarged lymph nodes per size criteria. VASCULAR: Abdominal aorta is nonaneurysmal. PELVIC VISCERA: Unremarkable. OSSEOUS STRUCTURES: Multilevel degenerative changes of the thoracolumbar lumbosacral spine. CT/CT abdomen pelvis wo IV con IMPRESSION: 1. No acute process of the abdomen or pelvis identified. 2. Decreased hepatic attenuation suggesting hepatic steatosis. 3. Dependent layering material within the gallbladder lumen which may reflect vicarious excretion in the setting of contrast administration versus echogenic bile. 4. Colonic diverticulosis without acute diverticulitis.
[2023-10-31 11:15] VITALS: BP 110/75; PULSE 110; RESP 18; TEMP 36.6; O2SAT 97; BMI 40.7
--- NOTE | 2023-10-31 11:21 | ED_ITS ---
HPI - General Adult General Chief complaint: General Medical Stated complaint: Back pain radiating to abd Time Seen by Provider: 10/31/23 13:42 Source: patient and family (Daughter) Mode of arrival: ambulatory Limitations: no limitations History of Present Illness ED Provider: DR. Barrett HPI narrative: 58-year-old female came in for evaluation of left flank/left side abdominal pain started 5 days ago, patient came to the ED 3 days ago had a full evaluation with CT of the abdomen and pelvis which was unrevealing, patient went to [facility] next day had another evaluation at [facility] including ultrasound and CT as per patient's daughter reported as normal studies patient was prescribed Percocet that is not controlling the patient's pain. Patient returned today for persistent of left-sided abdominal pain with no radiation pain has been severe 02/16 patient appear in distress, no dysuria, no frequency urination, no blood in the urine, no vomiting, no diarrhea, last bowel movement was 4 days ago, patient pass flatus, the only past history is significant for . Related Data Previous Rx's ?Medication ?Instructions ?Recorded lancets 33 gauge (TRUEplus Lancets) 33 gauge miscellaneous BID for 12/11/20 diabetes mellitus 50 days #100 ea blood sugar diagnostic (FreeStyle 1 strip miscellaneous BID for 12/23/22 Lite Strips) diabetes mellitus 30 days #100 strips metformin 500 mg tablet 500 mg PO BID #180 tabs 12/23/22 amlodipine 2.5 mg tablet 2.5 mg PO DAILY 90 days #90 tabs 04/14/23 sumatriptan succinate 25 mg tablet 25 mg PO Q2-4H PRN migraine 05/05/23 headache 30 days #9 tabs yjsiqyjcaj-ehmnzhvyhluiw-ggyxfmyn 1 cap PO Q4-6H PRN headache #14 05/12/23 50 mg-300 mg-40 mg capsule caps (Fioricet) semaglutide 0.25 mg or 0.5 mg (2 0.25 mg (0.368 mL) subcut QWEEK 30 08/05/23 mg/3 mL) subcutaneous pen injector days #1.84 mL (Ozempic) lidocaine 5 % topical patch 1 patch topical DAILY #30 ea 10/28/23 Allergies Allergy/AdvReac Type Severity Reaction Status Date / Time diphenhydramine Allergy Shortness Verified 10/31/23 11:17 [From Benadryl] of Breath Review of Systems 2 Review of Systems: All other systems are reviewed and are negative Constitutional: Reports as per HPI and Reports no additional constitutional complaints Eyes: Reports as per HPI and Reports no additional eye complaints Reports system reviewed and no additional complaints, except as documented Cardiovascular: Reports as per HPI and Reports no additional cardiovascular complaints Respiratory: Reports as per HPI and Reports no additional respiratory complaints Gastrointestinal: Reports as per HPI and Reports no additional gastrointestinal complaints Genitourinary: Reports no additional female genitourinary complaints Musculoskeletal: Reports no additional musculoskeletal complaints Skin/Breast: Reports system reviewed and no additional complaints, except as docu Psychiatric: Reports no additional psychiatric complaints Endocrine: Reports no additional endocrine complaints Hematologic/Lymphatic: Reports no additional hematologic/lymphatic complaints Allergic/Immunologic: Reports no additional allergic/immunologic complaints Reports system reviewed and no additional complaints, except as documented and Reports Abnormal speech present [facility] Past Medical History Medical History Hyperlipidemia LDL goal <100 Rash Left shoulder pain Morbid obesity Shortness of breath Chronic fatigue Pure hypercholesterolemia Diabetes mellitus Surgical History History of colonoscopy History of Family History Family History Father Hypertension Stroke Mother Hypertension Stroke Diabetes Maternal Aunt Cancer Brother No problems noted. Son No problems noted. Son No problems noted. Sister No problems noted. Sister No problems noted. Daughter No problems noted. Social History Social History Housing: Apartment Alcohol intake: former Patient Tobacco Use Status: Never used Tobacco e-Cigarette/Vaping Use: Never Used Second Hand Smoke Exposure: No Advance Directives: No Advance Directives Information Provided: No Do you have a plan to hurt others: No Plan service: No Current occupational status: unemployed Cognitive needs: No Hearing needs: No Vision needs: No Physical Exam ED Vital Signs: Vital Signs - 24 hr 10/31/23 11:15 10/31/23 15:06 Temperature 97.9 F 97.2 F Pulse Rate 110 H 88 Respiratory Rate 18 12 Blood Pressure 110/75 139/79 Pulse Oximetry 97 95 Oxygen Delivery Method Room Air Room Air BMI result Body Mass Index 40.7 Vital signs have been reviewed and appear to be correct. Blood pressure elevated. Heart rate elevated. Respiratory rate normal. Temperature normal. Oxygen saturation normal. Appearance: Alert. Oriented X3. acute distress secondary to abdominal pain Head: Normal external exam. Normocephalic. Atraumatic. No Vaughn signs noted. No raccoon eyes noted Eyes: PERRLA. EOMI. Conjunctiva and sclera normal. Eyelids normal. ENT: TM's Normal. Pharynx normal. Uvula midline. Moist mucous membranes. No trismus noted. No drooling noted. No muffled voice noted. Neck: Normal inspection. Neck supple. FROM. No adenopathy. Thyroid Normal. No meningeal signs. No neck mass noted. CVS: Normal heart rate and rhythm. Heart sound normal. No murmurs noted. Pulses normal throughout. Respiratory: No respiratory distress. Painless inspiration. Breath sounds normal. No wheezes/rales/rhonchi noted. Chest nontender. No accessory muscle usage noted or decreased air movement noted. Abdomen: Soft, mild tenderness to the left lower quadrant area. Bowel sounds normal in all 4 quadrants. No distention noted. No organomegaly noted. No visible injury noted. Back: No CVA tenderness. Full range of motion noted. Skin: Skin warm and dry. Normal skin color. Normal skin turgor. No rashes/lesions/lacerations noted. Extremities: No lower extremity edema. Extremities exhibit normal range of motion. Extremities nontender. Neuro: Oriented X 3. Cranial nerve exam: II-XII are grossly intact No motor deficit. No sensory deficit. Reflexes normal. Course Course Course Narrative: RME: done by DESMOND Hunt. 58 yold female presents to the ED for left flank pain, radating down to abdomen, and constipation. patient in distress. [facility]. positive for left flank CVA tenderness and left lower qaudrant abdominal tenderness. labs and meds ordered. Patient had normal CT scan and ultrasound yesterday at [facility]. Patient also states normal CT scan on the of this month in this ED. Reevaluation(s) Reevaluation #1: Severe abdominal pain, leukocytosis with slight left shift, await for CT abdomen pelvis with p.o./IV contrast, patient feels better after was given Dilaudid/Toradol IV. Patient signed out to to check the results of the CT. Time: 16:00 Medications Administered Discontinued Medications Generic Name Dose Route Start Last Admin Trade Name Chintan PRN Reason Stop Dose Admin Cyclobenzaprine HCl 10 mg 10/31/23 11:20 10/31/23 13:45 Cyclobenzaprine Hcl 10 Mg Tablet PO 10/31/23 11:21 10 mg ONCE ONE Administration Diatrizoate Meglum/Diatrizoate Sod 30 ml 10/31/23 16:25 10/31/23 16:25 Diatrizoate Meglumine, Sodium 30 Ml Solution PO 10/31/23 16:26 30 ml ONCE ONE Administration Hydromorphone HCl 1 mg 10/31/23 13:52 10/31/23 14:23 Hydromorphone Hcl 1 Mg/Ml Syringe IVPUSH 10/31/23 13:53 1 mg ONCE ONE Administration Protocol Sodium Chloride 1,000 mls @ 999 mls/hr 10/31/23 13:52 10/31/23 15:36 Ns IV 10/31/23 14:52 Infused .Q1H1M ONE Infusion Ketorolac Tromethamine 30 mg 10/31/23 13:52 10/31/23 14:23 Ketorolac Tromethamine 30 Mg/Ml Vial IVPUSH 10/31/23 13:53 30 mg ONCE ONE Administration Ondansetron HCl 4 mg 10/31/23 13:57 10/31/23 14:23 Ondansetron Hcl 4 Mg/2 Ml Vial IVPUSH 10/31/23 13:58 4 mg ONCE ONE Administration Medical Decision Making Differential Diagnosis Differential Diagnoses: The differential diagnosis associated with the presentation includes (Small-bowel obstruction, volvulus, pyelonephritis, kidney stone, UTI, complicated intra-abdominal hernia, diverticular disease, colitis, muscular pain.) Admission/Observation Consideration of admission/observation: Escalation of care including admission/observation considered Lab Data [facility] Lab Attestation statement: I reviewed the patient's lab results. 10/31/23 11:28 10/31/23 11:28 Labs: Lab Results 10/31/23 Range/Units 11:28 WBC 14.6 H (4.8-10.8) X10*3/uL RBC 4.91 D (4.20-5.50) X10*6/uL Hgb 14.2 D (12.0-16.0) g/dl Hct 42.0 (37.0-47.0) % MCV 85.5 (80.0-98.0) fL MCH 28.9 (27.0-33.0) pg MCHC 33.8 (31.0-35.0) g/dl RDW 13.0 (11.0-16.0) % Plt Count 339 D (160-400) X10*3/uL MPV 11.5 (9.4-12.3) fL Immature Gran % (Auto) 0.4 (0.0-0.4) % Neut % (Auto) 72.9 (45-73) % Lymph % (Auto) 20.4 (20-40) % Morgan % (Auto) 5.8 (2-11) % Eos % (Auto) 0.1 (0-4) % Baso % (Auto) 0.4 (0-2) % Lymph # (Auto) 3.0 (1.2-4.9) X10*3/uL Morgan # (Auto) 0.9 (0.1-1.2) X10*3/uL Eos # (Auto) 0.0 (0.0-0.4) X10*3/uL Baso # (Auto) 0.1 (0.0-0.2) X10*3/uL Abs Immat Gran (auto) 0.06 H (0.00-0.03) X10*3/uL Absolute Neuts (auto) 10.7 H (2.0-8.3) x10*3/uL Absolute Nucleated RBC 0.000 (0.0-0.012) X10*3/uL Nucleated RBC % (auto) 0.0 (0.0-0.2) /100WBC Sodium 134 L (135-145) mmol/L Potassium 4.9 (3.3-5.1) mmol/L Chloride 98 (96-108) mmol/L Carbon Dioxide 23 (22-29) mmol/L Anion Gap 18 (12-20) BUN 20 H (9-16) mg/dL Creatinine 1.27 (0.5-1.4) mg/dL Estim Creat Clear Calc 50.3 Estimated GFR 43 Random Glucose 171 H (60-115) mg/dL Calcium 10.1 D (8.4-10.2) mg/dL Total Bilirubin 0.4 (0.0-1.0) mg/dL AST 26 (5-31) U/L ALT 24 (0-31) U/L Alkaline Phosphatase 82 (39-117) U/L Total Protein 9.5 H (6.5-8.0) g/dL Albumin 4.5 (3.5-5.0) g/dL Lipase 21 (8-78) U/L Discharge Plan Discharge Clinical Impression: Abdominal pain Patient Disposition: Still a Patient Prescriptions: No Action lancets [TRUEplus Lancets] 33 gauge misc 33 gauge miscellaneous BID 50 Days Qty: 100 11RF metformin 500 mg tablet 500 mg PO BID Qty: 180 6RF FreeStyle Lite Strips Strip 1 strip miscellaneous BID 30 Days Qty: 100 11RF amlodipine 2.5 mg tablet 2.5 mg PO DAILY 90 Days Qty: 90 2RF sumatriptan succinate 25 mg tablet 25 mg PO Q2-4H PRN (Reason: migraine headache) 30 Days Qty: 9 0RF Rx Instructions: do not exceed 8 doses per 24 hrs xpywuzdhyp-nitzcmjxjqmve-mzxk [Fioricet] 50-300-40 mg capsule 1 cap PO Q4-6H PRN (Reason: headache) Qty: 14 0RF lidocaine 5 % adhesive patch,medicated 1 patch topical DAILY Qty: 30 0RF Rx Instructions: leave on most painful area for up to 12 hrs Ozempic 0.25 mg or 0.5 mg (2 mg/3 mL) pen injector 0.25 mg subcut QWEEK 30 Days Qty: 1.84 0RF Rx Instructions: for 4 weeks Print Language: Montserratian
[2023-10-31 11:32] LABS: MANUAL DIFF FLAG NO
[2023-10-31 11:36] LABS: Basophils Absolute Auto 0.1 X10*3/uL (0.0-0.2); Basophils Percent Auto 0.4 % (0-2); Eosinophils Percent Auto 0.1 % (0-4); Hemoglobin 14.2 g/dl (12.0-16.0); Imm Gran Abs Auto 0.06 X10*3/uL (0.00-0.03); Imm Gran Pct Auto 0.4 % (0.0-0.4); Lymphocytes Percent Auto 20.4 % (20-40); Mean Corpuscular HGB Conc 33.8 g/dl (31.0-35.0); Mean Corpuscular Hemoglobin 28.9 pg (27.0-33.0); Mean Corpuscular Volume 85.5 fL (80.0-98.0); Mean Platelet Volume 11.5 fL (9.4-12.3); Monocytes Absolute Auto 0.9 X10*3/uL (0.1-1.2); Monocytes Percent Auto 5.8 % (2-11); Neutrophils Absolute Auto 10.7 x10*3/uL (2.0-8.3); Neutrophils Percent Auto 72.9 % (45-73); Platelet Count 339 X10*3/uL (160-400); Red Blood Count 4.91 X10*6/uL (4.20-5.50); White Blood Count 14.6 X10*3/uL (4.8-10.8)
[2023-10-31 11:52] LABS: Alanine Aminotransferase 24 U/L (0-31); Albumin Level 4.5 g/dL (3.5-5.0); Alkaline Phosphatase 82 U/L (39-117); Anion Gap 18 (12-20); Aspartate Amino Transferase 26 U/L (5-31); Bilirubin Total 0.4 mg/dL (0.0-1.0); Blood Urea Nitrogen 20 mg/dL (9-16); Calcium 10.1 mg/dL (8.4-10.2); Carbon Dioxide 23 mmol/L (22-29); Chloride 98 mmol/L (96-108); Creatinine Clr Calc Pharmacy 50.3; Estimated Glomerular Filt Rate 43; Glucose Random 171 mg/dL (60-115); Lipase 21 U/L (8-78); Potassium 4.9 mmol/L (3.3-5.1); Sodium 134 mmol/L (135-145); Total Protein 9.5 g/dL (6.5-8.0)
[2023-10-31] MEDS: Cyclobenzaprine HCl 10 MG TABLET PO (13:45)
[2023-10-31] MEDS: HYDROmorphone HCl 1 MG/ML SYRINGE IVPUSH (14:23)
[2023-10-31] MEDS: Ketorolac Tromethamine 30 MG/ML VIAL IVPUSH (14:23)
[2023-10-31] MEDS: ondansetron HCL 4 MG/2 ML VIAL IVPUSH (14:23)
[2023-10-31] MEDS: 0.9 % Sodium Chloride 1,000 ML 999 ML IV (14:23)
[2023-10-31 15:06] VITALS: BP 139/79; PULSE 88; RESP 12; TEMP 36.2; O2SAT 95
[2023-10-31] MEDS: Diatrizoate Meglumine, Sodium 30 ML SOLUTION PO (16:25)
[2023-10-31 17:59] VITALS: BP 136/75; PULSE 81; RESP 16; TEMP 36.4; O2SAT 95
[2023-10-31 19:18] VITALS: BP 130/73; PULSE 86; RESP 16; TEMP 36.8; O2SAT 97
== END 2023-10-31 19:19 | disposition home or self-care (01) ==
PROVIDERS: Physician Assistant; Emergency Provider Internal Medicine; PCP Internal Medicine
DX: R10.9 Unspecified abdominal pain (principal); E78.5 Hyperlipidemia, unspecified; E11.9 Type 2 diabetes mellitus without complications; E78.00 Pure hypercholesterolemia, unspecified
CPT/HCPCS: 36415; 74176; 80053; 83690; 85025; 96361; 96374; 96375; 99284; J1170; J1885; J2405

== ENCOUNTER 2023-11-08 08:28 | Outpatient (AMB) | payer OTHER, SELFPAY ==
[2023-11-08 09:08] VITALS: BP 128/76; PULSE 97; O2SAT 98; BMI 40.2
--- NOTE | 2023-11-08 09:08 | MHC.PC.OV ---
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: No Accompanied by: Self / Same As Patient Allergies diphenhydramine [From Benadryl] Allergy (Verified 11/08/23 09:19) Shortness of Breath Medication List - Last Reconciled 11/08/23 by Selina Carrion MD amlodipine 2.5 mg PO DAILY 90 days blood sugar diagnostic (FreeStyle Lite Strips) 1 strip miscellaneous BID 30 days vueiccdwdh-yvrzlhcwhpvwm-dici 50-300-40 mg (Fioricet) 1 cap PO Q4-6H PRN cyclobenzaprine 10 mg PO Q8H lancets (TRUEplus Lancets) 33 gauge miscellaneous BID 50 days lidocaine 5% 1 patch topical DAILY metformin 500 mg PO BID semaglutide (Ozempic) 0.25 mg (0.368 mL) subcut QWEEK 30 days sumatriptan succinate 25 mg PO Q2-4H PRN 30 days tramadol 50 mg PO Q6H PRN Tobacco use date assessed: 08/05/23 Dental Screening Dental Screen Date: 08/05/23 HPI HPI Comments History of Present Illness Details This is a 58-year-old female with diabetes mellitus type 2, hypertension and morbid obesity that comes today accompanied by daughter complaining of a left upper quadrant abdominal pain that started about 2-3 weeks ago associated with nausea and constipation. She has had multiple ER visits at [facility] [place] [place] and [facility]. CT scan of abdomen and pelvis as per daughter show colitis. Has elevated white blood cells. No fever. I will start her on an empiric antibiotic and order MRI of the abdomen as well as gastroenterology referral. A1c within goal. Blood pressure stable. She is morbidly obese with a BMI of 40.2 and was advised to diet and exercise to reach BMI goal less than 30. [facility] Medical History (Updated 11/08/23 @ 10:08 by Selina Carrion MD) Hyperlipidemia LDL goal <100 Rash Left shoulder pain Morbid obesity Shortness of breath Chronic fatigue Pure hypercholesterolemia Diabetes mellitus Surgical History History of colonoscopy History of Family History Father Hypertension Stroke Mother Hypertension Stroke Diabetes Maternal Aunt Cancer Brother No problems noted. Son No problems noted. Son No problems noted. Sister No problems noted. Sister No problems noted. Daughter No problems noted. Social History Housing: Apartment Alcohol intake: former Patient Tobacco Use Status: Never used Tobacco e-Cigarette/Vaping Use: Never Used Second Hand Smoke Exposure: No service: No Current occupational status: unemployed Cognitive needs: No Hearing needs: No Vision needs: No Questionnaire PHQ-9 Over the last 2 weeks, how often have you been bothered by any of the following problems? 1. Little interest or pleasure in doing things: not at all 2. Feeling down, depressed, or hopeless: not at all 3. Trouble falling or staying asleep, or sleeping too much: not at all 4. Feeling tired or having little energy: not at all 5. Poor appetite or overeating: not at all 6. Feeling bad about yourself - or that you are a failure or have let yourself or your family down: not at all 7. Trouble concentrating on things, such as reading the newspaper or watching television: not at all 8. Moving or speaking so slowly that other people could have noticed. Or the opposite - being so fidgety or restless that you have been moving around a lot more than usual: not at all 9. Thoughts that you would be better off or of hurting yourself in some way: not at all Total score: 0 Depression Screening Interpretation: Negative Depression Screening Done: Yes 89380 - PHQ-9 Billing: Yes Source: Developed by Drs. Roderick Jay, Carissa Montague, Anup Reed and colleagues, with an educational yelitza from [employer]. Thrive Questionnaire Date Thrive assessed: 08/05/23 AUDIT C Alcohol Use Questionnaire (AUDIT-C) 1. How often do you have a drink containing alcohol?: Never Total Score: 0 Score Reviewed/Action Taken: No AKILA-7 AMB Questionnaire AKILA-7 Date AKILA - 7 assessed: 08/05/23 Source: Developed by Drs. Roderick Jay, Carissa Montague, Anup Reed and colleagues, with an educational yelitza from [employer]. Review of Systems Const All systems reviewed & are unremarkable except as noted in HPI and below Card Denies chest pain at rest, Denies chest pain with activity, Denies edema, Denies irregular heart rhythm, Denies claudication, Denies dyspnea, Denies dyspnea on exertion, Denies orthopnea, Denies paroxysmal nocturnal dyspnea and Denies slow heart rate Resp Denies cough, Denies dyspnea and Denies dyspnea on exertion GI Reports abdominal pain, Reports constipation and Reports nausea Physical exam (Primary Care) Vital Signs: Last Vital Signs Pulse 97 11/08/23 09:08 BP 128/76 11/08/23 09:08 Pulse Ox 98 11/08/23 09:08 Oxygen Delivery Method Room Air 11/08/23 09:08 BMI result Body Mass Index 40.2 BMI Assessment/Plan discussion: High BMI High, discussed plan: lifestyle, weight reduction, dietary and physical activity Tobacco/Smoking Status: Tobacco use Status Tobacco use date assessed 08/05/23 11/08/23 09:10 Patient Tobacco Use Status Never used Tobacco 11/08/23 09:10 e-Cigarette/Vaping Use Never Used 11/08/23 09:10 PHQ-9: PHQ-9 Score PHQ-9: Total score 0 11/08/23 09:26 Depression Screening Interpretation: Negative Thrive Assessment: Date of Thrive Assessment Date Thrive assessed 08/05/23 11/08/23 09:10 Resp Effort & Inspection: normal respiratory effort Auscultation: clear to auscultation bilaterally Cardio Jugular venous distension: no JVD Rate: regular rate Rhythm: regular rhythm Heart sounds: S1 normal heart sound present and S2 normal heart sound present GI Inspection: Yes normal to inspection Palpation (GI): Soft to palpation, Tenderness to palpation present (GI) in the LUQ and No hepatosplenomegaly present Auscultation: normal bowel sounds Extrem General: Yes full ROM Results AMB Hemoglobin A1c AMB Hemoglobin A1c 7.0 % Last Edit by Yvette Amado CMA on 11/08/23 09:27 Results Reviewed Results Reviewed: Laboratory Last Values Hgb A1c (Clinic) 7.0 % (4.0-6.0) H 11/08/23 09:26 Assessment and Plan Assessment & Plan (1) Left upper quadrant abdominal pain: Code(s): R10.12 - Left upper quadrant pain Plan: MRI of the abdomen ordered. Referred to Gastroenterology. Start antibiotics. (2) Diabetes mellitus: Code(s): E11.9 - Type 2 diabetes mellitus without complications Qualifiers: Diabetes mellitus type: type 2 Diabetes mellitus terminal clerk insulin use: without skilled nursing use Diabetes mellitus complication status: without complication Qualified Code(s): E11.9 - Type 2 diabetes mellitus without complications Plan: Continue metformin. A1c goal is equal or less than 7%. (3) Morbid obesity: Code(s): E66.01 - Morbid (severe) obesity due to excess calories Plan: Advised to do diet and exercise. BMI goal is less than 30. (4) Essential hypertension: Code(s): I10 - Essential (primary) hypertension Plan: Continue amlodipine. Blood pressure goal is equal or less than 130/80. Orders: Orders Complete Blood Count Auto Diff Today R10.12 - Left upper quadrant pain Comprehensive Met. Panel Today R10.12 - Left upper quadrant pain Lipase Today R10.12 - Left upper quadrant pain AMB Hemoglobin A1c Today Z13.9 - Encounter for screening, unspecified MR abdomen wo/w con Today R10.12 - Left upper quadrant pain Referrals Gastroenterology Referral R10.12 - Left upper quadrant pain Medications: New metronidazole 500 mg PO Q12H 7 days 14 tabs 0RF R10.12 - Left upper quadrant pain ciprofloxacin HCl (Cipro) 500 mg PO BID 7 days 14 tabs 0RF R10.12 - Left upper quadrant pain lactulose 10 grams (15 mL) PO BEDTIME 30 days PRN 237 mL 0RF constipation Discontinued semaglutide (Ozempic) for 4 weeks Discontinued Reason: Insurance Denied 0.25 mg (0.368 mL) subcut QWEEK 30 days 1.84 mL 0RF E11.9 - Type 2 diabetes mellitus without complications Coding Level of Care Code Est Pt Level 4 (30638) Complex EM visit Add On G2211 Diagnoses Left upper quadrant abdominal pain R10.12 Type 2 diabetes mellitus without complication, without long-term current use of insulin E11.9 Diabetes mellitus type: type 2 Diabetes mellitus skilled nursing insulin use: without terminal clerk use Diabetes mellitus complication status: without complication Morbid obesity E66.01 Essential hypertension I10 Time Spent (min) 22
== END 2023-11-08 09:32 | disposition home or self-care (01) ==
PROVIDERS: PCP Internal Medicine; Visit Provider Internal Medicine
DX: R10.12 Left upper quadrant pain (principal); E11.9 Type 2 diabetes mellitus without complications; E66.01 Morbid (severe) obesity due to excess calories; Z68.41 Body mass index [BMI] 40.0-44.9, adult; I10 Essential (primary) hypertension
CPT/HCPCS: 83036; 99214; G2211

== ENCOUNTER 2023-11-08 09:46 | Outpatient (REF) | payer OTHER, SELFPAY ==
[2023-11-08 10:05] LABS: MANUAL DIFF FLAG NO
[2023-11-08 10:32] LABS: Basophils Absolute Auto 0.1 X10*3/uL (0.0-0.2); Basophils Percent Auto 0.4 % (0-2); Eosinophils Absolute Auto 0.3 X10*3/uL (0.0-0.4); Eosinophils Percent Auto 2.3 % (0-4); Hematocrit 39.8 % (37.0-47.0); Hemoglobin 12.8 g/dl (12.0-16.0); Imm Gran Abs Auto 0.03 X10*3/uL (0.00-0.03); Imm Gran Pct Auto 0.3 % (0.0-0.4); Lymphocytes Absolute Auto 3.2 X10*3/uL (1.2-4.9); Lymphocytes Percent Auto 27.6 % (20-40); Mean Corpuscular HGB Conc 32.2 g/dl (31.0-35.0); Mean Corpuscular Hemoglobin 29.1 pg (27.0-33.0); Mean Corpuscular Volume 90.5 fL (80.0-98.0); Mean Platelet Volume 12.2 fL (9.4-12.3); Monocytes Absolute Auto 0.6 X10*3/uL (0.1-1.2); Monocytes Percent Auto 5.2 % (2-11); Neutrophils Absolute Auto 7.3 x10*3/uL (2.0-8.3); Neutrophils Percent Auto 64.2 % (45-73); Platelet Count 276 X10*3/uL (160-400); White Blood Count 11.4 X10*3/uL (4.8-10.8)
[2023-11-08 10:57] LABS: Creatinine Urine > 740.00 mg/dL
[2023-11-08 11:41] LABS: Alanine Aminotransferase 22 U/L (0-31); Albumin Level 3.9 g/dL (3.5-5.0); Alkaline Phosphatase 71 U/L (39-117); Anion Gap 14 (12-20); Aspartate Amino Transferase 17 U/L (5-31); Bilirubin Total 0.3 mg/dL (0.0-1.0); Blood Urea Nitrogen 13 mg/dL (9-16); Carbon Dioxide 27 mmol/L (22-29); Chloride 101 mmol/L (96-108); Cholesterol 170 mg/dL (<200); Estimated Glomerular Filt Rate 59; Glucose Fasting 175 mg/dL (60-99); HDL Cholesterol 31 mg/dL (>40); LDL Cholesterol Calculated 117 mg/dL (<100); Lipase 128 U/L (8-78); Potassium 4.7 mmol/L (3.3-5.1); Sodium 137 mmol/L (135-145); Total Protein 7.9 g/dL (6.5-8.0); Triglycerides 110 mg/dL (<150)
== END 2023-11-08 09:47 | disposition home or self-care (01) ==
LOC: HO.LAB 09:46
PROVIDERS: PCP Internal Medicine; Visit Provider Internal Medicine
DX: E11.9 Type 2 diabetes mellitus without complications (principal); R10.12 Left upper quadrant pain
CPT/HCPCS: 36415; 80053; 80061; 82043; 82570; 83690; 85025

== ENCOUNTER 2023-11-15 09:53 | Outpatient (REF) | payer OTHER, SELFPAY ==
[2023-11-15 11:53] LABS: Alanine Aminotransferase 34 U/L (0-31); Alkaline Phosphatase 63 U/L (39-117); Anion Gap 13 (12-20); Aspartate Amino Transferase 25 U/L (5-31); Bilirubin Total 0.3 mg/dL (0.0-1.0); Blood Urea Nitrogen 8 mg/dL (9-16); Calcium 9.6 mg/dL (8.4-10.2); Carbon Dioxide 23 mmol/L (22-29); Chloride 106 mmol/L (96-108); Estimated Glomerular Filt Rate > 60; Glucose Random 167 mg/dL (60-115); Potassium 3.9 mmol/L (3.3-5.1); Sodium 138 mmol/L (135-145); Total Protein 7.9 g/dL (6.5-8.0)
== END 2023-11-15 09:54 | disposition home or self-care (01) ==
LOC: HO.LAB 09:53
PROVIDERS: PCP Internal Medicine; Visit Provider Internal Medicine
DX: R10.12 Left upper quadrant pain (principal)
CPT/HCPCS: 36415; 80053

== ENCOUNTER 2023-11-16 13:01 | Emergency (ER) | payer OTHER, SELFPAY ==
[2023-11-16 13:09] VITALS: BP 187/98; PULSE 143; RESP 18; TEMP 36.8; O2SAT 100; BMI 40.8
--- NOTE | 2023-11-16 13:09 | ED_ITS ---
HPI - General Adult General Chief complaint: Abdominal Pain Stated complaint: l side numbess pain Time Seen by Provider: 11/16/23 13:26 Source: patient and family Mode of arrival: ambulatory History of Present Illness ED Provider: Dr. Wang HPI narrative: This is the 4th visit for abdominal pain in the past few weeks. Patient had a CT x 2 in this ED and a CT at [facility]. CT scans have not shown much other than hepatic steatosis. Onset (ago): week(s) Related Data Previous Rx's ?Medication ?Instructions ?Recorded lancets 33 gauge (TRUEplus Lancets) 33 gauge miscellaneous BID for 12/11/20 diabetes mellitus 50 days #100 ea blood sugar diagnostic (FreeStyle 1 strip miscellaneous BID for 12/23/22 Lite Strips) diabetes mellitus 30 days #100 strips metformin 500 mg tablet 500 mg PO BID #180 tabs 12/23/22 amlodipine 2.5 mg tablet 2.5 mg PO DAILY 90 days #90 tabs 04/14/23 sumatriptan succinate 25 mg tablet 25 mg PO Q2-4H PRN migraine 05/05/23 headache 30 days #9 tabs qazgodafoe-tjvqnpgqxgfrg-ligkxrjl 1 cap PO Q4-6H PRN headache #14 05/12/23 50 mg-300 mg-40 mg capsule caps (Fioricet) lidocaine 5 % topical patch 1 patch topical DAILY #30 ea 10/28/23 cyclobenzaprine 10 mg tablet 10 mg PO Q8H #20 tabs 10/31/23 tramadol 50 mg tablet 50 mg PO Q6H PRN pain #20 tabs 10/31/23 ciprofloxacin HCl 500 mg tablet 500 mg PO BID 7 days #14 tabs 11/08/23 (Cipro) lactulose 10 gram/15 mL oral 10 g (15 mL) PO BEDTIME PRN 11/08/23 solution constipation 30 days #237 mL metronidazole 500 mg tablet 500 mg PO Q12H 7 days #14 tabs 11/08/23 sennosides 8.6 mg tablet (senna) 8.6 mg PO BEDTIME PRN constipation 11/09/23 7 days #7 tabs hyoscyamine sulfate 0.125 mg 0.125 mg PO QID #7 tabs 11/16/23 tablet (Levsin) Allergies Allergy/AdvReac Type Severity Reaction Status Date / Time diphenhydramine Allergy Shortness Verified 11/16/23 13:19 [From Benadryl] of Breath Review of Systems 2 Review of Systems: Yes all other systems are reviewed and are negative Neurologic: Denies Sensory deficit (Neuro) [facility] Past Medical History Medical History Hyperlipidemia LDL goal <100 Rash Left shoulder pain Morbid obesity Shortness of breath Chronic fatigue Pure hypercholesterolemia Diabetes mellitus Surgical History History of colonoscopy History of Family History Family History Father Hypertension Stroke Mother Hypertension Stroke Diabetes Maternal Aunt Cancer Brother No problems noted. Son No problems noted. Son No problems noted. Sister No problems noted. Sister No problems noted. Daughter No problems noted. Social History Social History Housing: Apartment Alcohol intake: former Patient Tobacco Use Status: Never used Tobacco Smoked in Last 30 Days: No e-Cigarette/Vaping Use: Never Used Second Hand Smoke Exposure: No Use of substances other than those prescribed or required for medical reasons: No Advance Directives: No Advance Directives Information Provided: Yes Patient : No service: No Current occupational status: unemployed Cognitive needs: No Hearing needs: No Vision needs: No Physical Exam ED Vital Signs: Vital Signs - 24 hr 11/16/23 13:09 11/16/23 16:11 Temperature 98.3 F 97.8 F Pulse Rate 143 H 121 H Respiratory Rate 18 20 Blood Pressure 187/98 H 146/106 H Pulse Oximetry 100 100 Oxygen Delivery Method Room Air Room Air BMI result Body Mass Index 40.8 Const Other: obese very anxious, crying Nutritional Appearance: obese Orientation/consciousness: oriented to person and patient oriented x3 Limitations: no limitations HENMT Head: Yes normal to inspection Ears: external ears normal General nose exam: Normal external nose present Mouth: Normal oral and palatal mucosa present and oropharynx normal Throat: Yes posterior oropharynx normal Eyes General: appearance normal, both eyes and all related structures Neck Neck: Yes normal visual inspection Chest Chest palpation & inspection: normal inspection of the chest Resp Auscultation: clear to auscultation bilaterally Cardio Jugular venous distension: no JVD Rate: regular rate Rhythm: regular rhythm Heart sounds: S1 normal heart sound present and S2 normal heart sound present GI Inspection: Yes normal to inspection Palpation (GI): Soft to palpation, nontender and No hepatosplenomegaly present Auscultation: normal bowel sounds General: Yes no CVA tenderness Back/Spine/Pelvis Back: no CVA tenderness Skin General skin exam: no rashes or lesions noted Neuro General: oriented to person and patient oriented x3 Cranial nerves: Yes CN's II-XII intact bilaterally Motor exam (neuro): 5/5 motor strength present throughout Sensory Exam: No Sensory deficit (Neuro) Extrem General: Yes normal to inspection Psych Other: anxious Course Course Course Narrative: RME, this is a rapid medical exam performed by Dillon Puente please refer to primary provider for complete H&P- 58 year old female presents for evaluation of left sided pain and diarrhea. She has been here 2 in the last 3 weeks for similar complaints and had 2 negative workups including [address] scans of the abdomen and pelvis. She is refusing any more scans today. She finished a one week course of metronidazole and ciprofloxacin yesterday that were prescribed by her primary doctor 8 days ago. Plan for labs, UA, stool studies Reevaluation(s) Reevaluation #1: No acute findings will start levsin and dc home for follow up with her PMD Time: 16:41 Medications Administered Discontinued Medications Generic Name Dose Route Start Last Admin Trade Name Freq PRN Reason Stop Dose Admin Sodium Chloride 1,000 mls @ 500 mls/hr 11/16/23 13:45 11/16/23 14:43 Ns IVCONT 11/16/23 15:44 500 mls/hr .Q2H [facility] Administration Medical Decision Making Differential Diagnosis Differential Diagnoses: The differential diagnosis associated with the presentation includes (anxiety, abdominal pain, pancreatitis, hepatitis, ) Admission/Observation Consideration of admission/observation: Escalation of care including admission/observation considered (upon arrival patient considered for admission) Lab Data 11/16/23 14:38 11/16/23 14:38 Labs: Lab Results 11/16/23 11/16/23 Range/Units 13:43 14:38 WBC 12.2 H (4.8-10.8) X10*3/uL RBC 4.37 (4.20-5.50) X10*6/uL Hgb 12.7 (12.0-16.0) g/dl Hct 39.0 (37.0-47.0) % MCV 89.2 (80.0-98.0) fL MCH 29.1 (27.0-33.0) pg MCHC 32.6 (31.0-35.0) g/dl RDW 13.0 (11.0-16.0) % Plt Count 258 (160-400) X10*3/uL MPV 11.9 (9.4-12.3) fL Immature Gran % (Auto) 0.3 (0.0-0.4) % Neut % (Auto) 71.7 (45-73) % Lymph % (Auto) 18.5 L (20-40) % [place] % (Auto) 6.0 (2-11) % Eos % (Auto) 3.0 (0-4) % Baso % (Auto) 0.5 (0-2) % Lymph # (Auto) 2.3 (1.2-4.9) X10*3/uL [place] # (Auto) 0.7 (0.1-1.2) X10*3/uL Eos # (Auto) 0.4 (0.0-0.4) X10*3/uL Baso # (Auto) 0.1 (0.0-0.2) X10*3/uL Abs Immat Gran (auto) 0.04 H (0.00-0.03) X10*3/uL Absolute Neuts (auto) 8.7 H (2.0-8.3) x10*3/uL Absolute Nucleated RBC 0.000 (0.0-0.012) X10*3/uL Nucleated RBC % (auto) 0.0 (0.0-0.2) /100WBC Sodium 139 (135-145) mmol/L Potassium 4.0 (3.3-5.1) mmol/L Chloride 105 (96-108) mmol/L Carbon Dioxide 24 (22-29) mmol/L Anion Gap 14 (12-20) BUN 7 L (9-16) mg/dL Creatinine 0.82 (0.5-1.4) mg/dL Estim Creat Clear Calc 78.1 Estimated GFR > 60 Random Glucose 152 H (60-115) mg/dL Calcium 9.8 (8.4-10.2) mg/dL Magnesium 1.6 (1.6-2.6) mg/dL Total Bilirubin 0.2 (0.0-1.0) mg/dL AST 28 (5-31) U/L ALT 34 H (0-31) U/L Alkaline Phosphatase 68 (39-117) U/L Total Protein 8.0 (6.5-8.0) g/dL Albumin 4.1 (3.5-5.0) g/dL Lipase 16 (8-78) U/L Stl C. cayetanensis PCR Not Detected (Not Detect.) Stool Rotavirus A PCR Not Detected (Not Detect.) Stl Adenov F 40/41 PCR Not Detected (Not Detect.) Stool Astrovirus (PCR) Not Detected (Not Detect.) Stool Campylobacter PCR Not Detected (Not Detect.) Stool Cryptosporidium PCR Not Detected (Not Detect.) Stl Sh Tox Pr E STEC PCR Not Detected (Not Detect.) Stool E coli O157 PCR Not applicable (Not Detect.) Stl Enterotoxigenic E PCR Not Detected (Not Detect.) Stool EPEC (PCR) Not Detected (Not Detect.) Stool EAEC (PCR) Not Detected (Not Detect.) Stl E. histolytica PCR Not Detected (Not Detect.) Stool Giardia Lamblia PCR Not Detected (Not Detect.) Stl P. shigelloides PCR Not Detected (Not Detect.) Stool Salmonella PCR Not Detected (Not Detect.) Stool Sapovirus (PCR) Not Detected (Not Detect.) Stl Shigella/EIEC PCR Not Detected (Not Detect.) St Y.enterocolitica PCR Not Detected (Not Detect.) Stool Vibrio (PCR) Not Detected (Not Detect.) Stl Vibrio cholerae PCR Not Detected (Not Detect.) Stl Norovirus GI/GII PCR Not Detected (Not Detect.) C. difficile Tox B Gene NEGATIVE (Negative) Tests considered The following testing was considered but not selected: CT or MRI of abdomen considered but patient with frequent imaging and soft abdomen so I did not order further studies Prescription Management I considered prescription management with: Antibiotic (no evidence of infection) Chronic Conditions Patient?s care impacted by: Diabetes and Hypertension Social Determinants Patient?s care significantly limited by Social Determinants of Health including: Low income Discharge Plan Discharge Clinical Impression: Abdominal pain, Anxiety Patient Disposition: Home, Self-Care Instructions: Abdominal Pain (ED), Anxiety (ED) Prescriptions: New hyoscyamine sulfate [Levsin] 0.125 mg tablet 0.125 mg PO QID Qty: 7 0RF No Action lancets [TRUEplus Lancets] 33 gauge misc 33 gauge miscellaneous BID 50 Days Qty: 100 11RF metformin 500 mg tablet 500 mg PO BID Qty: 180 6RF FreeStyle Lite Strips Strip 1 strip miscellaneous BID 30 Days Qty: 100 11RF amlodipine 2.5 mg tablet 2.5 mg PO DAILY 90 Days Qty: 90 2RF sumatriptan succinate 25 mg tablet 25 mg PO Q2-4H PRN (Reason: migraine headache) 30 Days Qty: 9 0RF Rx Instructions: do not exceed 8 doses per 24 hrs epobgyenea-ingpuwdzmkrox-nscj [Fioricet] 50-300-40 mg capsule 1 cap PO Q4-6H PRN (Reason: headache) Qty: 14 0RF sennosides [senna] 8.6 mg tablet 8.6 mg PO BEDTIME PRN (Reason: constipation) 7 Days Qty: 7 0RF lidocaine 5 % adhesive patch,medicated 1 patch topical DAILY Qty: 30 0RF Rx Instructions: leave on most painful area for up to 12 hrs cyclobenzaprine 10 mg tablet 10 mg PO Q8H Qty: 20 0RF tramadol 50 mg tablet 50 mg PO Q6H PRN (Reason: pain) Qty: 20 0RF metronidazole 500 mg tablet 500 mg PO Q12H 7 Days Qty: 14 0RF ciprofloxacin HCl [Cipro] 500 mg tablet 500 mg PO BID 7 Days Qty: 14 0RF lactulose 10 gram/15 mL solution 10 g PO BEDTIME PRN (Reason: constipation) 30 Days Qty: 237 0RF Referrals: Selina Mckeon MD [Primary Care Provider] - 5 days Print Language: Amharic
--- NOTE | 2023-11-16 13:15 | ECG_ITS ---
Test Reason : ARRHYTHMIA Blood Pressure : / mmHG Vent. Rate : 118 BPM Atrial Rate : 118 BPM P-R Int : 136 ms QRS Dur : 068 ms QT Int : 322 ms P-R-T Axes : 034 012 025 degrees QTc Int : 451 ms Sinus tachycardia Otherwise normal ECG When compared with ECG of 09-JUL-2021 09:45, Vent. rate has increased BY 43 BPM Referred By: Aldair Puente Electronically Signed By:Cristobal Khan
[2023-11-16 14:41] LABS: MANUAL DIFF FLAG NO
[2023-11-16] MEDS: 0.9 % Sodium Chloride 1,000 ML 500 ML IVCONT (14:43)
[2023-11-16 14:46] LABS: Basophils Absolute Auto 0.1 X10*3/uL (0.0-0.2); Basophils Percent Auto 0.5 % (0-2); Eosinophils Absolute Auto 0.4 X10*3/uL (0.0-0.4); Hemoglobin 12.7 g/dl (12.0-16.0); Imm Gran Abs Auto 0.04 X10*3/uL (0.00-0.03); Imm Gran Pct Auto 0.3 % (0.0-0.4); Lymphocytes Absolute Auto 2.3 X10*3/uL (1.2-4.9); Lymphocytes Percent Auto 18.5 % (20-40); Mean Corpuscular HGB Conc 32.6 g/dl (31.0-35.0); Mean Corpuscular Hemoglobin 29.1 pg (27.0-33.0); Mean Corpuscular Volume 89.2 fL (80.0-98.0); Mean Platelet Volume 11.9 fL (9.4-12.3); Monocytes Absolute Auto 0.7 X10*3/uL (0.1-1.2); Neutrophils Absolute Auto 8.7 x10*3/uL (2.0-8.3); Neutrophils Percent Auto 71.7 % (45-73); Platelet Count 258 X10*3/uL (160-400); Red Blood Count 4.37 X10*6/uL (4.20-5.50); White Blood Count 12.2 X10*3/uL (4.8-10.8)
[2023-11-16 14:57] LABS: Alanine Aminotransferase 34 U/L (0-31); Albumin Level 4.1 g/dL (3.5-5.0); Alkaline Phosphatase 68 U/L (39-117); Anion Gap 14 (12-20); Aspartate Amino Transferase 28 U/L (5-31); Bilirubin Total 0.2 mg/dL (0.0-1.0); Blood Urea Nitrogen 7 mg/dL (9-16); Calcium 9.8 mg/dL (8.4-10.2); Carbon Dioxide 24 mmol/L (22-29); Chloride 105 mmol/L (96-108); Creatinine Clr Calc Pharmacy 78.1; Estimated Glomerular Filt Rate > 60; Glucose Random 152 mg/dL (60-115); Lipase 16 U/L (8-78); Magnesium 1.6 mg/dL (1.6-2.6); Sodium 139 mmol/L (135-145)
[2023-11-16 15:10] LABS: CDiff Gene PCR NEGATIVE (Negative)
[2023-11-16 15:23] LABS: Adenovirus F 40/41 Not Detected (Not Detect.); Astrovirus Not Detected (Not Detect.); Campylobacter Not Detected (Not Detect.); Cryptosporidium Not Detected (Not Detect.); Cyclospora cayetanensis Not Detected (Not Detect.); E. coli EAEC Not Detected (Not Detect.); E. coli EPEC Not Detected (Not Detect.); E. coli ETEC Not Detected (Not Detect.); E. coli STEC Not Detected (Not Detect.); Entamoeba histolytica Not Detected (Not Detect.); Giardia lamblia Not Detected (Not Detect.); Norovirus GI/GII Not Detected (Not Detect.); Plesiomonas shigelloides Not Detected (Not Detect.); Rotavirus A Not Detected (Not Detect.); Salmonella Not Detected (Not Detect.); Sapovirus Not Detected (Not Detect.); Shigella sp./EIEC Not Detected (Not Detect.); Vibrio Not Detected (Not Detect.); Vibrio Cholerae Not Detected (Not Detect.); Yersinia enterocolitica Not Detected (Not Detect.)
[2023-11-16 16:11] VITALS: BP 146/106; PULSE 121; RESP 20; TEMP 36.6; O2SAT 100
[2023-11-16 17:10] VITALS: BP 146/106; PULSE 121; RESP 20; TEMP 36.6; O2SAT 100
== END 2023-11-16 17:22 | disposition home or self-care (01) ==
PROVIDERS: Physician Assistant; Emergency Provider Emergency Medicine; PCP Internal Medicine
DX: R10.9 Unspecified abdominal pain (principal); F41.9 Anxiety disorder, unspecified; E11.9 Type 2 diabetes mellitus without complications; Z79.899 Other long term (current) drug therapy
CPT/HCPCS: 36415; 80053; 83690; 83735; 85025; 87493; 87507; 93005; 96360; 96361; 99284; 99285

== ENCOUNTER → 2023-11-16 13:15 | Outpatient (BNV) | payer OTHER, SELFPAY | PROVIDERS: Emergency Provider Emergency Medicine; PCP Internal Medicine; Visit Provider Internal Medicine Cardiovascular Disease | DX: R00.0 Tachycardia, unspecified (principal) | CPT/HCPCS: 93010 ==

== ENCOUNTER 2023-11-22 07:19 | Outpatient (REF) | payer OTHER, SELFPAY ==
--- NOTE | ~2023-11-22 | XR_ITS ---
EXAMINATION: XR ABDOMEN KUB CLINICAL INDICATION: Left upper quadrant pain for about a month, worsens when sitting and lying. COMPARISON: CT abdomen 10/31/2023. TECHNIQUE: Two AP views of the abdomen. FINDINGS: Mild dextroscoliosis of the lumbar spine with degenerative changes. Moderate amount of stool in the colon. Gas in the ascending and transverse colon. No abnormally dilated loops of bowel. XR/XR KUB IMPRESSION: Moderate amount of stool in the colon.
[2023-11-22 09:36] LABS: Appearance Urine Cloudy; Color Urine Dark Yellow; Glucose Urine UA Negative (Negative); Leukocyte Esterase Urine Negative (Negative); Nitrite Urine Negative (Negative); PH 5.5 (5.0-9.0); Specific Gravity - Urine >= 1.030 (1.005-1.025); UMIC TRIGGER UACC YES; Urine Blood Negative (Negative); Urine Ketones 15 mg/dL (Negative); Urine Protein 30 (1+) mg/dL (Neg-Trace)
[2023-11-22 10:06] LABS: Bacteria Urine None Seen (None Seen); RBC Urine 0-2 /HPF (0-2); WBC Urine 0-5 /HPF (0-5)
== END 2023-11-22 07:20 | disposition home or self-care (01) ==
LOC: HO.LAB 07:19
PROVIDERS: PCP Internal Medicine; Visit Provider Internal Medicine Gastroenterology
DX: R10.12 Left upper quadrant pain (principal); Z83.719 Family history of colon polyps, unspecified
CPT/HCPCS: 74018; 81001; 99202

== ENCOUNTER 2023-11-22 07:19 | Outpatient (AMB) | payer OTHER, SELFPAY ==
--- NOTE | 2023-11-22 07:32 | MHC.OFFVIS ---
Vital Signs 11/22/23 07:36 Height 5 ft 1 in Weight 205 lb BMI 38.7 BP 133/68 Blood Pressure Location Lt brachial Position Sitting Pulse 107 H Intake Visit Reasons: LLQ pain/current patient 04/19/2020. Intake Note: Patient follow up for LUQ pain, last office visit was 2019. Patient cc: Nauseas, abdominal pain with GERD and burning sensation, LUQ pain radiating to her back and front abdominal area, and some soft BM. 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 Accompanied by: Daughter Allergies diphenhydramine [From Benadryl] Allergy (Verified 11/22/23 07:25) Shortness of Breath Medication List - Last Reconciled 11/22/23 by Ju Yeboah MD amlodipine 2.5 mg PO DAILY 90 days blood sugar diagnostic (FreeStyle Lite Strips) 1 strip miscellaneous BID 30 days lancets (TRUEplus Lancets) 33 gauge miscellaneous BID 50 days lidocaine 5% 1 patch topical DAILY metformin 500 mg PO BID HPI HPI LLQ pain/current patient 04/19/2020.: Details: GI CLINIC VISIT FOR THIS 58-YEAR-OLD FEMALE FOR EVALUATION OF LUQ PAIN Patient returns after a hiatus of 3-1/2 years (last clinic visit was in 04/2020) CHRONIC ILLNESSES: MORBID OBESITY IMAGING STUDIES: 10/31/[address] SCAN SHOWED: 1. No acute process of the abdomen or pelvis identified. 2. Decreased hepatic attenuation suggesting hepatic steatosis. 3. Dependent layering material within the gallbladder lumen which may reflect vicarious excretion in the setting of contrast administration versus echogenic bile. 4. Colonic diverticulosis without acute diverticulitis. [address] SCAN SHOWED: 1. Hepatomegaly and diffuse hepatic steatosis. 2. Colonic diverticula without diverticulitis. Appendix is normal. No acute findings along the gastrointestinal tract. No abdominal abscess. 3. The finding of the 3.3 cm left ovarian cyst should be correlated with patient's menstrual status. ENDOSCOPIC STUDIES: 12/2019 Colonoscopy showed: Three adenomatous polyps removed Scattered moderate diverticulosis in the entire colon Plan: Patient has an appointment on 01/11/20 in the GI Clinic with Ju Yeboah M.D. Repeat Colonoscopy interval based on path results in 3-5 years if polyps are adenomatous and due to positive FH of colon polyps.. TODAY'S VISIT: Patient is accompanied by her daughter who helped with her history. Pt complains of constant LUQ and flank x 1 month. Pain is in LUQ and radiates to the left flank and anteriorly Pain can be burning and sometimes stabbing - varies between 2 to 10 in intensity.. Finds it hard to breath and half of her body felt numb last week. Had difficulty breathing when she went to the ED. Unable to sits for too long or lie flat on her bed. Pain is worse after eating - as soon as she eats. Pt was prescribed hyoscyamine and noted worsneing of abdominal pain after taking it. OK if she takes a liquid diet. BMs are regular (like mashed potatoes) and she is unable to push (feels anal canal is not opening since she is unable to push) Has itching inside the anus. Treated with antibiotics (Cipro and flagyl) without any change in her symptoms. Notes blood on wiping - thinks its coming from the vagina. Has difficulty turning in the bed when she has pain. Denies burning with urination. Wt loss from 226 to 205 Denies fever, chills or sweating. Can feel hot and cold at night. Had a BM daily last week with feeling of incomplete evacuation. Complains of abdominal bloating PAST VISIT: Colonoscopy and biopsy results were reviewed with the patient. Patient denies having any problems after the procedure. Patient was diagnosed with COVID-19 infection end of March and is recovering. Feels tired on walking and had a dry cough without fever or chills. Patient is here for physical exam. She is morbidly obese and was advised to diet and exercise. No chest pain or shortness of breath. No fever or cough. Last Pap smear was 5 years ago and was normal . Denies recent change in bowel habits, constipation, diarrhea, black stools or rectal bleeding. Patient denies symptoms of heartburn, dysphagia, nausea, vomiting, change in appetite or weight. Patient denies major cardiac or pulmonary problems, loud snoring or sleep apnea Had spinal anesthesia for her 2nd 30 yrs - something went wrong and she was not able to stand up for 3 months. Denies being on chronic anticoagulation or NSAID use. Maternal aunt had flat colon polyps at age 57 and had part of her colon removed. Patient denies known family history of colon cancer or other GI malignancY [facility] Medical History Hyperlipidemia LDL goal <100 Rash Left shoulder pain Morbid obesity Shortness of breath Chronic fatigue Pure hypercholesterolemia Diabetes mellitus Surgical History History of colonoscopy History of Family History Father Hypertension Stroke Mother Hypertension Stroke Diabetes Maternal Aunt Cancer Brother No problems noted. Son No problems noted. Son No problems noted. Sister No problems noted. Sister No problems noted. Daughter No problems noted. Social History Housing: Apartment Alcohol intake: former Patient Tobacco Use Status: Never used Tobacco e-Cigarette/Vaping Use: Never Used Second Hand Smoke Exposure: No service: No Current occupational status: unemployed Cognitive needs: No Hearing needs: No Vision needs: No Review of Systems Const Reports fatigue, Denies fever(s), Denies headache(s) and Reports weight loss Eyes Denies eye discharge and Denies irritation ENT Reports Normal hearing present, Denies dysphagia, Denies dizziness and Denies headache(s) Card Denies chest pain, Denies leg edema, Reports dyspnea and Denies dyspnea on exertion Resp Denies cough, Reports dyspnea, Denies dyspnea on exertion and Denies wheezing GI Reports abdominal pain, Reports bloating, Denies change in bowel habits, Denies dysphagia, Reports heartburn, Reports nausea and Reports other (loss of appetite) Denies difficulty voiding and Denies dysuria Musc Denies back pain and Denies arthralgias Skin/Breast Denies pruritus, Denies rash and Denies jaundice Neuro Reports Normal hearing present, Denies Abnormal speech present, Denies dizziness, Denies headache(s) and Denies seizure-like activity Psych Denies anxiety, Denies depression and Denies panic attacks Endo Denies cold intolerance, Reports fatigue, Denies flushing and Denies heat intolerance Zhen/Lymph Denies easy bleeding and Denies easy bruising Aller/Immun Denies wheezing Physical Exam Vital Signs: Last Vital Signs Pulse 107 H 11/22/23 07:36 BP 133/68 11/22/23 07:36 BMI result Body Mass Index 38.7 Const General: healthy appearing and in distress (due to abdominal pain ) Nutritional Appearance: obese Orientation/consciousness: patient oriented x3 Limitations: language barrier HEENT Head: Yes normal to inspection Ears: hearing grossly normal bilaterally Eyes Sclerae: sclerae normal Pupils: Equal, round and reactive pupils present Neck Neck: Yes normal visual inspection Chest Chest palpation & inspection: normal inspection of the chest Resp Effort & Inspection: normal respiratory effort Auscultation: clear to auscultation bilaterally Cardio Palpation: normal PMI Rate: regular rate Rhythm: regular rhythm Heart sounds: S1 normal heart sound present, S2 normal heart sound present and no murmurs GI Palpation (GI): Soft to palpation, Tenderness to palpation present (GI) (tenderness LUQ on deep palpation) and No hepatosplenomegaly present Auscultation: normal bowel sounds Rectal Exam - Female: deferred Skin General skin exam: no rashes or lesions noted Neuro General: patient oriented x3, gait normal and moves all extremities Cranial nerves: Yes Equal, round and reactive pupils present and Yes Normal hearing present Speech: No Abnormal speech present Psych Appearance: grossly normal Mental Status: mental status grossly normal Assessment & Plan Assessment & Plan (1) Left upper quadrant abdominal pain: Code(s): R10.12 - Left upper quadrant pain Category: Medical (2) Family history of colonic polyps: Comment: 12/27 Colonoscopy showed diverticulosis. Three small adenomatous polyps were removed and patient was advised repeat colonoscopy in 3 years (due in 12/30) Code(s): Z83.71 - Family history of colonic polyps Category: Medical Plan 58-year-old female with DM, hypertension and morbid obesity followed in GI for colon cancer screening. Pt seen for constant LUQ and flank pain x 1 month. Pain can be burning and sometimes stabbing - varies between 2 to 10 in intensity.. Had a BM daily last week with feeling of incomplete evacuation. Complains of abdominal bloating Patient has a positive family history of colon polyps in a maternal aunt in her 50s. 12/27 Colonoscopy showed diverticulosis. Three small adenomatous polyps were removed and patient was advised repeat colonoscopy in 3 years (due in 12/30) Pt was advised to have a KUB to check for obstipation She was scheduled for an urgent EGD and colonoscopy on 11/23/23 Advise referral to ObGyn for evaluation of vaginal bleeding Orders: Orders UA CC w/rflx Micro + Cult Today R10.12 - Left upper quadrant pain XR KUB Today R10.12 - Left upper quadrant pain Medications: New bisacodyl (Dulcolax (bisacodyl)) Take 4 tablets at 12 pm the day before colonoscopy appointment 10 mg (2 x 5 mg) PO ONCE 2 days 4 tabs 0RF colon prep polyethylene glycol 3350 (Miralax) Mix Miralax with 64 oz(8 cups) of Crystal light. Take 2 tablets of Dulcolax qt 12 pm. Wait to have your 1st bowel movement, then begin drinking Miralax. Drink a glass of Miralax every 10-15 minutes until you are finished. You will drink at least another 4 cups of clear liquid of your choice over the next 2 hours. Please drink as many clear liquids as possible You may have clear liquids up to four hours before your procedure 17 grams PO DAILY 1 day 238 grams 0RF Coding Level of Care Code New Pt Level 4 (96152) Diagnoses Left upper quadrant abdominal pain R10.12 Family history of colonic polyps Z83.71 Time Spent (min) 27
[2023-11-22 07:36] VITALS: BP 133/68; PULSE 107; BMI 38.7
== END 2023-11-22 08:31 | disposition home or self-care (01) ==
PROVIDERS: PCP Internal Medicine; Visit Provider Internal Medicine Gastroenterology
DX: R10.12 Left upper quadrant pain (principal); Z83.719 Family history of colon polyps, unspecified
CPT/HCPCS: 99204

== ENCOUNTER 2023-11-23 09:04 | Day surgery (SDC) | payer OTHER, SELFPAY ==
[2023-11-23] VITALS (8 sets, daily range): BP systolic 152–183; BP diastolic 82–99; PULSE 94–105; RESP 14–16; TEMP 35.8–36.2; O2SAT 99–100; BMI 38.7
--- NOTE | 2023-11-23 08:54 | P.CONAN_ITS ---
[facility] Active Problems Active Problems: All Active Problems Left upper quadrant abdominal pain (Acute) Essential hypertension (Acute) Carpal tunnel syndrome on left (Acute) Left shoulder tendonitis (Acute) Itching (Acute) Rash (Acute) Left shoulder pain (Acute) Morbid obesity (Acute) Shortness of breath (Acute) Chronic fatigue (Acute) Family history of colonic polyps (Acute) Diabetes mellitus (Acute) Past Medical History Medical History Hyperlipidemia LDL goal <100 Rash Left shoulder pain Morbid obesity Shortness of breath Chronic fatigue Pure hypercholesterolemia Diabetes mellitus Functional capacity: independent ambulation Patient : No Family History Family History Father Hypertension Stroke Mother Hypertension Stroke Diabetes Maternal Aunt Cancer Brother No problems noted. Son No problems noted. Son No problems noted. Sister No problems noted. Sister No problems noted. Daughter No problems noted. Family history of problems with anesthesia: No Surgical History Surgical History History of colonoscopy History of Social History Social History Housing: Apartment Alcohol intake: former Patient Tobacco Use Status: Never used Tobacco e-Cigarette/Vaping Use: Never Used Second Hand Smoke Exposure: No service: No Current occupational status: unemployed Cognitive needs: No Hearing needs: No Vision needs: No Meds Allergies Allergy/AdvReac Type Severity Reaction Status Date / Time diphenhydramine Allergy Shortness Verified 11/22/23 07:25 [From Benadryl] of Breath Assessment and Plan Final Anesthetic Review Family History of Problems with Anesthesia: No
--- NOTE | 2023-11-23 09:07 | MHC.SHP ---
Pre-Procedural Eval Section A - 24 Hr Update-Section A only Date of Service: 11/23/23 The patient is an INPATIENT: No Changes since office visit: Yes Patient answered all questions; No Cold of Flu in the past 2 weeks, No New Medical Problems and No Changes in Medication The patient has been examined within 24 hours of the surgical procedure. The History & Physical has been completed within 30 days and I have reviewed it.: Yes Section B - Complete if H&P > 30 days Chief Complaint: Left upper quadrant pain,hx adenomatous Allergies: Allergies Allergy/AdvReac Type Severity Reaction Status Date / Time diphenhydramine Allergy Shortness Verified 11/22/23 07:25 [From Benadryl] of Breath Plan I have reviewed the history and physical and performed a pertinent physical examination on my patient. No changes have occurred unless specified. Time Spent With Patient Time: Total time managing care of this patient today ____ minutes.
[2023-11-23 09:38] LABS: Glucose, Whole Blood 116 mg/dL (60-115)
--- NOTE | 2023-11-23 10:39 | P.CONAN_ITS ---
[facility] Active Problems Active Problems: All Active Problems Left upper quadrant abdominal pain (Acute) Essential hypertension (Acute) Carpal tunnel syndrome on left (Acute) Left shoulder tendonitis (Acute) Itching (Acute) Rash (Acute) Left shoulder pain (Acute) Morbid obesity (Acute) Shortness of breath (Acute) Chronic fatigue (Acute) Family history of colonic polyps (Acute) Diabetes mellitus (Acute) Past Medical History Medical History Hyperlipidemia LDL goal <100 Rash Left shoulder pain Morbid obesity Shortness of breath Chronic fatigue Pure hypercholesterolemia Diabetes mellitus Functional capacity: independent ambulation Family History Family History Father Hypertension Stroke Mother Hypertension Stroke Diabetes Maternal Aunt Cancer Brother No problems noted. Son No problems noted. Son No problems noted. Sister No problems noted. Sister No problems noted. Daughter No problems noted. Family history of problems with anesthesia: No Surgical History Surgical History History of colonoscopy History of History of Problems with Anesthesia: No Social History Social History Housing: Apartment Alcohol intake: former Patient Tobacco Use Status: Never used Tobacco e-Cigarette/Vaping Use: Never Used Second Hand Smoke Exposure: No Use of substances other than those prescribed or required for medical reasons: No Are you DNR?: No Advance Directives: No Advance Directives Information Provided: Yes Patient : No service: No Current occupational status: unemployed Cognitive needs: No Hearing needs: No Vision needs: No Meds Allergies Allergy/AdvReac Type Severity Reaction Status Date / Time diphenhydramine Allergy Shortness Verified 11/22/23 07:25 [From Benadryl] of Breath Exam Height,Weight and Vital Signs: Height 5 ft 1 in Weight 92.986 kg Last Vital Signs Temp 96.5 F L 11/23/23 09:34 Pulse 102 H 11/23/23 09:34 Resp 16 11/23/23 09:34 BP 161/87 H 11/23/23 09:34 Pulse Ox 99 11/23/23 09:34 O2 Del Method Room Air 11/23/23 09:34 Pertinent Lab Results Pertinent Lab Results: Laboratory Tests 11/23/23 09:30 POC Glucose 116 H Airway Mallampati Class: III TM Dist: >3cm Neck ROM: Full Heart: RRR Lungs: CTA Assessment and Plan Final Anesthetic Review Family History of Problems with Anesthesia: No History of Problems with Anesthesia: No NPO: Yes ASA Class: III Final Preanesthetic Review: Meds/Allgs Chart Reviewed, Consent Obtained/Reviewed and Anes Risks/Benef Reviewed Patient Risk: Low Procedure Risk: Low Anesthetic Plan Anesthetic Plan: MAC: Disposition: Standard PACU
--- NOTE | 2023-11-23 11:16 | P.OPN-COLO_ITS ---
Colonoscopy Operative Note Operative Note Date of Service: 11/23/23 Narrative: FLEXIBLE TRANSORAL UPPER GASTROINTESTINAL ENDOSCOPY WITH BIOPSIES AND COLONOSCOPY TILL CECUM WITH BIOPSIES AND SNARE POLYPECTOMY Pre-op diagnosis: Surveillance for colon polyps, left upper quadrant pain Post-op diagnosis: Gastritis, Colon Polyps, Diverticulosis, hemorrhoids Endoscopist:? Ju Yeboah MD Anesthesia:?MAC UPPER ENDOSCOPY Consent: Indications for the procedure and potential complications of bleeding, perforation, reaction to medications and missed diagnosis were discussed with the patient and informed consent was obtained. Instrument: Olympus GIF H 190 mid size upper endoscope Monitoring: Vital signs and clinical assessment, continuous EKG monitoring, Pulse oximetry, Carbon Dioxide monitoring and blood pressure monitoring were done throughout the procedure. Procedure: The patient was placed in the left lateral decubitis position and pre-procedure medications were administered and a bite block was placed. The endoscope was inserted into the mouth and advanced under direct vision to the third part of duodenum. A careful inspection was made as the upper endoscope was withdrawn including a retroflexed examination of the proximal stomach; Findings and interventions are described below. Findings: Larynx: Normal Esophagus: GE junction at 40 cms. No Ayers's. Stomach: Moderate diffuse gastric erythema - biopsies were obtained from the antrum. Nodular appearing mucosa along the lesser curve and incisura - biopsies obtained Grade 2 flap valve on retroflexed examination of the cardia. Duodenum: Normal bulb and descending duodenum Biopsies were obtained from descending duodenum to check for celiac sprue Intervention: Biopsies as noted above COLONOSCOPY PROCEDURE NOTE Instrument: Olympus PCF H 190 L variable stiffness pediatric colonoscope Monitoring: Vital signs and clinical assessment, intermittent blood pressure monitoring, continuous EKG monitoring, Pulse oximetry and Carbon Dioxide monitoring were done throughout the procedure. Please see anesthesia flowsheet. Colon withdrawl time was 16 minutes. Procedure: The patient was placed in the left lateral decubitis position and pre-procedure medications were administered. After a digital rectal examination of the ano-rectum, the video colonoscope was inserted into the rectum and advanced through the colon to the cecum. The colonoscope was slowly withdrawn in a retrograde panoramic fashion and the colon mucosa was carefully examined including a retroflexed view of the rectum. Findings and interventions are described below. Procedure Difficulty: without difficulty Findings: Terminal Ileum: Not evaluated Cecum: Normal Ascending Colon: Moderate diverticulosis throughout the colon Transverse Colon: Moderate diverticulosis throughout the colon Descending Colon: Moderate diverticulosis throughout the colon Sigmoid Colon: Moderate diverticulosis Rectum: A 3-4 mm sessile polyp in the distal rectum just inside the anal verge Ano-rectum: Normal Colon preparation: Good after copious irrigation. [place] Bowel Preparation Scale Right colon; 2 Transverse colon: 2 Left colon; 2 (0 = Unprepared colon segment with mucosa not seen due to solid stool that cannot be cleared. 1 = Portion of mucosa of the colon segment seen, but other areas of the colon segment not well seen due to staining, residual stool and/or opaque liquid. 2 = Minor amount of residual staining, small fragments of stool and/or opaque liquid, but mucosa of colon segment seen well. 3 = Entire mucosa of colon segment seen well with no residual staining, small fragments of stool or opaque liquid) Impression and Post Procedure Diagnosis: Endoscopy Findings: STOMACH: Moderate diffuse gastric erythema - biopsies were obtained from the antrum. Nodular appearing mucosa along the lesser curve and incisura - biopsies obtained DUODENUM: Normal - biopsied to check for celiac sprue Colonoscopy Findings: One small polyp was removed Moderate diverticulosis seen in the entire colon Plan: Pt has a FU appointment on 12/06/[address] Yeboah Repeat Colonoscopy in 5 years if polyps are adenomatous and due to a history of adenomatous colon polyp. Above findings were reviewed with the patient and relevant handouts were given and the discharge area. BIOPSIES SHOWED: A. Small bowel, biopsy: Chronic inactive duodenitis. B. Stomach, antrum, biopsy: Antral-type mucosa with moderate chronic inactive inflammation and intestinal metaplasia; negative for dysplasia; no Helicobacter organisms seen. C. Stomach, body, biopsy: Oxyntic mucosa with moderate chronic inactive inflammation; no Helicobacter organisms seen. D. Stomach, lesser curvature, biopsy: Antral-type and oxyntic mucosa with moderate chronic inactive inflammation and intestinal metaplasia; negative for dysplasia; no Helicobacter organisms seen. E. Rectum, polypectomy: Hyperplastic mucosal polyp Advise repeat EGD in 3 years for follow-up of gastric intestinal metaplasia. Repeat colonoscopy in 5 years of follow-up adenomatous colon polyps removed during previous colonoscopy
== END 2023-11-23 13:45 | disposition home or self-care (01) ==
PROVIDERS: PCP Internal Medicine; Visit Provider Internal Medicine Gastroenterology
PROC: (CPT 43239; principal; 2023-11-23 10:00)
DX: K29.80 Duodenitis without bleeding (principal); K31.A11 Gastric intestinal metaplasia without dysplasia, involving the antrum; K29.70 Gastritis, unspecified, without bleeding; Z12.11 Encounter for screening for malignant neoplasm of colon; K62.1 Rectal polyp; K57.30 Diverticulosis of large intestine without perforation or abscess without bleeding; K64.8 Other hemorrhoids; Z83.710 Family history of adenomatous and serrated polyps; I10 Essential (primary) hypertension; E11.9 Type 2 diabetes mellitus without complications; E78.00 Pure hypercholesterolemia, unspecified; E66.9 Obesity, unspecified; Z68.38 Body mass index [BMI] 38.0-38.9, adult; Z79.84 Long term (current) use of oral hypoglycemic drugs; Z79.899 Other long term (current) drug therapy
CPT/HCPCS: 43239; 45385; 45380; 82947; 88305; 88313; 88342; J2704

== ENCOUNTER → 2023-11-23 09:04 | Outpatient (BNV) | payer OTHER, SELFPAY | PROVIDERS: PCP Internal Medicine; Visit Provider Internal Medicine Gastroenterology | DX: Z12.11 Encounter for screening for malignant neoplasm of colon (principal); Z86.010 Personal history of colon polyps; K62.1 Rectal polyp; K57.90 Diverticulosis of intestine, part unspecified, without perforation or abscess without bleeding; K29.70 Gastritis, unspecified, without bleeding | CPT/HCPCS: 43239; 45385 ==

== ENCOUNTER 2023-11-24 08:49 | Outpatient (REF) | payer OTHER, SELFPAY | END 2023-11-24 08:50 | disposition home or self-care (01) | LOC: HO.MRI 08:49 | PROVIDERS: PCP Internal Medicine; Visit Provider Internal Medicine | DX: Z13.89 Encounter for screening for other disorder (principal) ==

== ENCOUNTER 2023-12-02 09:56 | Outpatient (AMB) | payer OTHER, SELFPAY ==
[2023-12-02 09:58] VITALS: BP 118/80; BMI 38.9
--- NOTE | 2023-12-02 09:58 | MHC.PC.OV ---
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: No Accompanied by: Daughter Allergies diphenhydramine [From Benadryl] Allergy (Verified 12/02/23 10:08) Shortness of Breath Medication List - Last Reconciled 12/02/23 by Selina Carrion MD amlodipine 2.5 mg PO DAILY 90 days blood sugar diagnostic (FreeStyle Lite Strips) 1 strip miscellaneous BID 30 days lancets (TRUEplus Lancets) 33 gauge miscellaneous BID 50 days lidocaine 5% 1 patch topical DAILY metformin 500 mg PO BID omeprazole 20 mg PO BID 30 days Tobacco use date assessed: 08/05/23 Dental Screening Dental Screen Date: 08/05/23 HPI HPI Comments History of Present Illness Details This is a 58-year-old female with diabetes mellitus type 2, hypertension, hyperlipidemia and recently diagnosed thoracic nerve root compression that comes today as hospital discharge follow-up with discharge date 11/26/2023 due to left upper quadrant abdominal pain caused by thoracic root compression at T11. Patient went to [facility] ER due to left upper quadrant abdominal pain that started about a month ago aggravated by eating and certain twisting positions. Liquid diet made it better. Had an endoscopy and colonoscopy showing mild gastritis. During hospitalization her white blood cells were elevated. Last CT scan of the abdomen was unremarkable. MRI thoracic and lumbar were done during admission showing superior disc extrusion at T11-12 compressing the exiting left T11 nerve root. Minor degenerative changes were shown add MRI of lumbar spine. Patient will be referred to neuro spine due to this matter. Pain is still present aggravated at bedtime. Morphine did relieved the pain. I will give her few tablets of oxycodone to see if pain is relieved. I will also start her on gabapentin and she is aware that she should not drive while taking gabapentin. Gabapentin can also cause sleepiness. Last A1c was within goal. Blood pressure stable. LDL not on goal and I will add a statin. [facility] Medical History (Updated 12/02/23 @ 11:46 by Selina Carrion MD) Hyperlipidemia LDL goal <100 Rash Left shoulder pain Morbid obesity Shortness of breath Chronic fatigue Pure hypercholesterolemia Diabetes mellitus Surgical History History of colonoscopy History of Family History Father Hypertension Stroke Mother Hypertension Stroke Diabetes Maternal Aunt Cancer Brother No problems noted. Son No problems noted. Son No problems noted. Sister No problems noted. Sister No problems noted. Daughter No problems noted. Social History Housing: Apartment Alcohol intake: former Patient Tobacco Use Status: Never used Tobacco e-Cigarette/Vaping Use: Never Used Second Hand Smoke Exposure: No service: No Current occupational status: unemployed Cognitive needs: No Hearing needs: No Vision needs: No Questionnaire Thrive Questionnaire Date Thrive assessed: 08/05/23 AKILA-7 AMB Questionnaire AKILA-7 Date AKILA - 7 assessed: 08/05/23 Source: Developed by Drs. Roderick Jay, Carissa Montague, Anup Reed and colleagues, with an educational yelitza from [employer]. Review of Systems Const All systems reviewed & are unremarkable except as noted in HPI and below Card Denies chest pain at rest, Denies chest pain with activity, Denies edema, Denies irregular heart rhythm, Denies claudication, Denies dyspnea, Denies dyspnea on exertion, Denies orthopnea, Denies paroxysmal nocturnal dyspnea and Denies slow heart rate Resp Denies cough, Denies dyspnea and Denies dyspnea on exertion GI Reports abdominal pain, Denies change in bowel habits, Denies excessive flatus, Denies nausea and Denies vomiting Musc Reports numbness Neuro Reports numbness Physical exam (Primary Care) Vital Signs: Last Vital Signs BP 118/80 12/02/23 09:58 BMI result Body Mass Index 38.9 BMI Assessment/Plan discussion: High BMI High, discussed plan: lifestyle, weight reduction, dietary and physical activity Tobacco/Smoking Status: Tobacco use Status Tobacco use date assessed 08/05/23 12/02/23 10:03 Patient Tobacco Use Status Never used Tobacco 12/02/23 10:03 e-Cigarette/Vaping Use Never Used 12/02/23 10:03 Thrive Assessment: Date of Thrive Assessment Date Thrive assessed 08/05/23 12/02/23 10:03 Resp Effort & Inspection: normal respiratory effort Auscultation: clear to auscultation bilaterally Cardio Jugular venous distension: no JVD Rate: regular rate Rhythm: regular rhythm Heart sounds: S1 normal heart sound present and S2 normal heart sound present GI Inspection: Yes normal to inspection Palpation (GI): Soft to palpation and Tenderness to palpation present (GI) in the LUQ Auscultation: normal bowel sounds Extrem General: Yes full ROM Assessment and Plan Assessment & Plan (1) Hospital discharge follow-up: Code(s): Z09 - Encounter for follow-up examination after completed treatment for conditions other than malignant neoplasm Plan: Discharge date 11/26/2023 due to intractable abdominal pain. MRI thoracic spine was done showing T11 nerve root compression. Pain still present. Will be referred to neuro spine. (2) Thoracic nerve root compression: Comment: Left T11. Code(s): M54.14 - Radiculopathy, thoracic region Plan: Start gabapentin. Referred to neuro spine. (3) Essential hypertension: Code(s): I10 - Essential (primary) hypertension Plan: Continue amlodipine. Blood pressure goal is equal or less than 130/80. 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 A1c goal is equal or less than 7%. (5) Hyperlipidemia LDL goal <70: Code(s): E78.5 - Hyperlipidemia, unspecified Plan: Start statins. LDL goal is less than 70. Orders: Referrals Neuro Spine Referral M54.14 - Radiculopathy, thoracic region Medications: New gabapentin 100 mg PO TID 30 days 90 caps 0RF oxycodone Partial Fill upon patient request. 5 mg PO BID 3 days PRN 6 tabs 0RF pain S24.9XXA - Injury of unspecified nerve of thorax, initial encounter naloxone 4 mg/actuation (Narcan) spray 1 dose into ONE nostril; alternate nostrils w each dose until help arrives 4 mg intranasal Q2M 5 days PRN 2 ea 0RF opioid overdose rosuvastatin 10 mg PO DAILY 90 days 90 tabs 1RF E78.5 - Hyperlipidemia, unspecified Coding Level of Care Code TCM Mod MDM <= 7 Days Complex EM visit Add On G2211 Diagnoses Hospital discharge follow-up Z09 Thoracic nerve root compression M54.14 Essential hypertension I10 Type 2 diabetes mellitus without complication, without long-term current use of insulin E11.9 Diabetes mellitus type: type 2 Diabetes mellitus terminal computer operator insulin use: without half-way use Diabetes mellitus complication status: without complication Hyperlipidemia LDL goal <70 E78.5 Time Spent (min) 25
== END 2023-12-02 10:22 | disposition home or self-care (01) ==
PROVIDERS: PCP Internal Medicine; Visit Provider Internal Medicine
DX: M54.14 Radiculopathy, thoracic region (principal); I10 Essential (primary) hypertension; E11.9 Type 2 diabetes mellitus without complications; E78.5 Hyperlipidemia, unspecified
CPT/HCPCS: 99495

== ENCOUNTER 2023-12-06 07:12 | Outpatient (AMB) | payer OTHER, SELFPAY ==
--- NOTE | 2023-12-06 07:31 | MHC.OFFVIS ---
Vital Signs 12/06/23 07:33 Height 5 ft 1 in Weight 207 lb 3.752 oz BMI 39.2 BP 136/77 Blood Pressure Location Lt brachial Position Sitting Pulse 92 Intake Visit Reasons: EGD/Colonoscopy results Intake Note: Amber presents in the office as a follow up for her EGD / COLO. CC: She is here for the results - still has pains in the left side. She feels like it is electricity under her ribs - she was told it was the nerves in her spine. She has appt with neurologist 12/20/23. 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: No Allergies diphenhydramine [From Benadryl] Allergy (Verified 12/06/23 07:34) Shortness of Breath Medication List - Last Reconciled 12/06/23 by Ju Yeboah MD amlodipine 2.5 mg PO DAILY 90 days blood sugar diagnostic (FreeStyle Lite Strips) 1 strip miscellaneous BID 30 days gabapentin 100 mg PO TID 30 days lancets (TRUEplus Lancets) 33 gauge miscellaneous BID 50 days lidocaine 5% 1 patch topical DAILY metformin 500 mg PO BID naloxone 4 mg/actuation (Narcan) 4 mg intranasal Q2M PRN 5 days omeprazole 20 mg PO BID 30 days oxycodone 5 mg PO BID PRN 3 days rosuvastatin 10 mg PO DAILY 90 days HPI HPI EGD/Colonoscopy results: Details: GI CLINIC VISIT FOR THIS 58-YEAR-OLD FEMALE FOR EVALUATION OF LUQ PAIN Patient returns after a hiatus of 3-1/2 years (last clinic visit was in 04/2020) CHRONIC ILLNESSES: MORBID OBESITY IMAGING STUDIES: 10/31/[address] SCAN SHOWED: 1. No acute process of the abdomen or pelvis identified. 2. Decreased hepatic attenuation suggesting hepatic steatosis. 3. Dependent layering material within the gallbladder lumen which may reflect vicarious excretion in the setting of contrast administration versus echogenic bile. 4. Colonic diverticulosis without acute diverticulitis. [address] SCAN SHOWED: 1. Hepatomegaly and diffuse hepatic steatosis. 2. Colonic diverticula without diverticulitis. Appendix is normal. No acute findings along the gastrointestinal tract. No abdominal abscess. 3. The finding of the 3.3 cm left ovarian cyst should be correlated with patient's menstrual status. ENDOSCOPIC STUDIES: 11/23/23 EGD AND COLON SHOWED: Endoscopy Findings: STOMACH: Moderate diffuse gastric erythema - biopsies were obtained from the antrum. Nodular appearing mucosa along the lesser curve and incisura - biopsies obtained DUODENUM: Normal - biopsied to check for celiac sprue Colonoscopy Findings: One small polyp was removed Moderate diverticulosis seen in the entire colon Plan: Repeat Colonoscopy in 5 years if polyps are adenomatous and due to a history of adenomatous colon polyp. Above findings were reviewed with the patient and relevant handouts were given and the discharge area. BIOPSIES SHOWED: A. Small bowel, biopsy: Chronic inactive duodenitis. B. Stomach, antrum, biopsy: Antral-type mucosa with moderate chronic inactive inflammation and intestinal metaplasia; negative for dysplasia; no Helicobacter organisms seen. C. Stomach, body, biopsy: Oxyntic mucosa with moderate chronic inactive inflammation; no Helicobacter organisms seen. D. Stomach, lesser curvature, biopsy: Antral-type and oxyntic mucosa with moderate chronic inactive inflammation and intestinal metaplasia; negative for dysplasia; no Helicobacter organisms seen. E. Rectum, polypectomy: Hyperplastic mucosal polyp Advise repeat EGD in 3 years for follow-up of gastric intestinal metaplasia. Repeat colonoscopy in 5 years of follow-up adenomatous colon polyps removed during previous colonoscopy 12/2019 Colonoscopy showed: Three adenomatous polyps removed Scattered moderate diverticulosis in the entire colon Plan: Patient has an appointment on 01/11/20 in the GI Clinic with Ju Yeboah M.D. Repeat Colonoscopy interval based on path results in 3-5 years if polyps are adenomatous and due to positive FH of colon polyps.. TODAY'S VISIT: Patient went to [facility] ER due to left upper quadrant abdominal pain and hospitalized x 5 days. During hospitalization her white blood cells were elevated. MRI thoracic and lumbar were done during admission showing superior disc extrusion at T11-12 compressing the exiting left T11 nerve root. Minor degenerative changes were shown add MRI of lumbar spine. Patient is being referred to neuro spine by her PCP. EGD and colon results were reviewed with the pt. Pt states her pain has improved with Gabapentin. Taking pain medication three times a day. When she tries to have a BM, she feels electricity going through the side. Sometimes she has a burning sensation. Pain can radiate from the back to the front. Eats small meals since has more pain when her stomach is full. Lost 20 lbs over the past month. PAST VISITS: Patient is accompanied by her daughter who helped with her history. Pt complains of constant LUQ and flank x 1 month. Pain is in LUQ and radiates to the left flank and anteriorly Pain can be burning and sometimes stabbing - varies between 2 to 10 in intensity.. Finds it hard to breath and half of her body felt numb last week. Had difficulty breathing when she went to the ED. Unable to sits for too long or lie flat on her bed. Pain is worse after eating - as soon as she eats. Pt was prescribed hyoscyamine and noted worsneing of abdominal pain after taking it. OK if she takes a liquid diet. BMs are regular (like mashed potatoes) and she is unable to push (feels anal canal is not opening since she is unable to push) Has itching inside the anus. Treated with antibiotics (Cipro and flagyl) without any change in her symptoms. Notes blood on wiping - thinks its coming from the vagina. Has difficulty turning in the bed when she has pain. Denies burning with urination. Wt loss from 226 to 205 Denies fever, chills or sweating. Can feel hot and cold at night. Had a BM daily last week with feeling of incomplete evacuation. Complains of abdominal bloating PAST VISIT: Colonoscopy and biopsy results were reviewed with the patient. Patient denies having any problems after the procedure. Patient was diagnosed with COVID-19 infection end of March and is recovering. Feels tired on walking and had a dry cough without fever or chills. Patient is here for physical exam. She is morbidly obese and was advised to diet and exercise. No chest pain or shortness of breath. No fever or cough. Last Pap smear was 5 years ago and was normal . Denies recent change in bowel habits, constipation, diarrhea, black stools or rectal bleeding. Patient denies symptoms of heartburn, dysphagia, nausea, vomiting, change in appetite or weight. Patient denies major cardiac or pulmonary problems, loud snoring or sleep apnea Had spinal anesthesia for her 2nd 30 yrs - something went wrong and she was not able to stand up for 3 months. Denies being on chronic anticoagulation or NSAID use. Maternal aunt had flat colon polyps at age 57 and had part of her colon removed. Patient denies known family history of colon cancer or other GI malignancy [facility] Medical History (Updated 12/06/23 @ 08:02 by Ju Yeboah MD) Hyperlipidemia LDL goal <100 Rash Left shoulder pain Morbid obesity Shortness of breath Chronic fatigue Pure hypercholesterolemia Diabetes mellitus Surgical History (Updated 12/06/23 @ 07:34 by JENNIFER Murray) History of esophagogastroduodenoscopy (EGD) History of colonoscopy History of Family History Father Hypertension Stroke Mother Hypertension Stroke Diabetes Maternal Aunt Cancer Brother No problems noted. Son No problems noted. Son No problems noted. Sister No problems noted. Sister No problems noted. Daughter No problems noted. Social History Housing: Apartment Alcohol intake: former Patient Tobacco Use Status: Never used Tobacco e-Cigarette/Vaping Use: Never Used Second Hand Smoke Exposure: No service: No Current occupational status: unemployed Cognitive needs: No Hearing needs: No Vision needs: No Review of Systems Const All systems reviewed & are unremarkable except as noted in HPI and below ENT Reports Normal hearing present Neuro Reports Normal hearing present and Denies Abnormal speech present Physical Exam Const General: healthy appearing and in distress (due to abdominal pain ) Nutritional Appearance: obese Orientation/consciousness: patient oriented x3 Limitations: language barrier HEENT Head: Yes normal to inspection Ears: hearing grossly normal bilaterally Eyes Sclerae: sclerae normal Pupils: Equal, round and reactive pupils present Neck Neck: Yes normal visual inspection Chest Chest palpation & inspection: normal inspection of the chest Resp Effort & Inspection: normal respiratory effort Auscultation: clear to auscultation bilaterally Cardio Palpation: normal PMI Rate: regular rate Rhythm: regular rhythm Heart sounds: S1 normal heart sound present, S2 normal heart sound present and no murmurs GI Palpation (GI): Soft to palpation, Tenderness to palpation present (GI) (tenderness LUQ on deep palpation) and No hepatosplenomegaly present Auscultation: normal bowel sounds Rectal Exam - Female: deferred Skin General skin exam: no rashes or lesions noted Neuro General: patient oriented x3, gait normal and moves all extremities Cranial nerves: Yes Equal, round and reactive pupils present and Yes Normal hearing present Speech: No Abnormal speech present Psych Appearance: grossly normal Mental Status: mental status grossly normal Assessment & Plan Assessment & Plan (1) Family history of colonic polyps: Comment: 12/27 Colonoscopy showed diverticulosis. Three small adenomatous polyps were removed and patient was advised repeat colonoscopy in 3 years (due in 12/30) Code(s): Z83.71 - Family history of colonic polyps Category: Medical (2) Left upper quadrant abdominal pain: Code(s): R10.12 - Left upper quadrant pain Category: Medical Plan 58-year-old female with DM, hypertension and morbid obesity followed in GI for colon cancer screening. Pt seen for constant LUQ and flank pain x 1 month. Pain can be burning and sometimes stabbing - varies between 2 to 10 in intensity.. Had a BM daily last week with feeling of incomplete evacuation. Complains of abdominal bloating Patient has a positive family history of colon polyps in a maternal aunt in her 50s. 12/27 Colonoscopy showed diverticulosis. Three small adenomatous polyps were removed and patient was advised repeat colonoscopy in 3 years (due in 12/30) Pt was advised to have a KUB to check for obstipation 11/23/23 EGD and colon were performed and results as noted above. Advise repeat EGD in 3 years for follow-up of gastric intestinal metaplasia. Repeat colonoscopy in 5 years of follow-up adenomatous colon polyps removed during previous colonoscopy Patient went to [facility] ER due to left upper quadrant abdominal pain and hospitalized x 5 days. During hospitalization her white blood cells were elevated. MRI thoracic and lumbar were done during admission showing superior disc extrusion at T11-12 compressing the exiting left T11 nerve root. Minor degenerative changes were shown add MRI of lumbar spine. Patient has an appt at [facility] on 12/20/23. FU in 6 months Coding Level of Care Code Est Pt Level 3 (43715) Diagnoses Family history of colonic polyps Z83.71 Left upper quadrant abdominal pain R10.12 Time Spent (min) 16
[2023-12-06 07:33] VITALS: BP 136/77; PULSE 92; BMI 39.2
== END 2023-12-06 08:00 | disposition home or self-care (01) ==
PROVIDERS: PCP Internal Medicine; Visit Provider Internal Medicine Gastroenterology
DX: R10.12 Left upper quadrant pain (principal); Z83.719 Family history of colon polyps, unspecified
CPT/HCPCS: 99213

== ENCOUNTER → 2023-12-06 07:12 | Outpatient (BNVA) | payer OTHER, SELFPAY | PROVIDERS: PCP Internal Medicine; Visit Provider Internal Medicine Gastroenterology | DX: R10.12 Left upper quadrant pain (principal); Z83.719 Family history of colon polyps, unspecified | CPT/HCPCS: 99212 ==

== ENCOUNTER 2023-12-09 13:36 | Outpatient (AMB) | payer OTHER, SELFPAY ==
[2023-12-09 14:03] VITALS: BP 128/80; BMI 39.5
--- NOTE | 2023-12-09 14:03 | A.OFFPC_ITS ---
Vital Signs 12/09/23 14:03 Height 5 ft 1 in Weight 209 lb BMI 39.5 BP 128/80 Blood Pressure Location Lt brachial Position Sitting Intake Visit Reasons: Annual Exam Intake Note: Patient here for an annual physical exam Or First Assist Registered Nurse Required: No Accompanied by: Aunt Allergies diphenhydramine [From Benadryl] Allergy (Verified 12/09/23 14:48) Shortness of Breath Medication List - Last Reconciled 12/09/23 by Selina Carrion MD amlodipine 2.5 mg PO DAILY 90 days blood sugar diagnostic (FreeStyle Lite Strips) 1 strip miscellaneous BID 30 days gabapentin 100 mg PO TID 30 days lancets (TRUEplus Lancets) 33 gauge miscellaneous BID 50 days lidocaine 5% 1 patch topical DAILY metformin 500 mg PO BID naloxone 4 mg/actuation (Narcan) 4 mg intranasal Q2M PRN 5 days omeprazole 20 mg PO BID 30 days oxycodone 5 mg PO BID PRN 3 days rosuvastatin 10 mg PO DAILY 90 days Tobacco use date assessed: 08/05/23 Dental Screening Dental Screen Date: 08/05/23 HPI HPI Comments History of Present Illness Details This is a 58-year-old female with diabetes mellitus that comes for her physical exam. A1c within goal. Last diabetic eye exam was less than a year ago. I will order a mammogram. Last colonoscopy was last month. As per patient Pap smears are up-to-date. She is obese with a BMI of 39.5 and was adv ised to do diet and exercise to reach BMI goal less than 30. [facility] Medical History (Updated 12/10/23 @ 07:36 by Selina Carrion MD) Hyperlipidemia LDL goal <100 Rash Left shoulder pain Morbid obesity Shortness of breath Chronic fatigue Pure hypercholesterolemia Diabetes mellitus Surgical History History of esophagogastroduodenoscopy (EGD) History of colonoscopy History of Family History Father Hypertension Stroke Mother Hypertension Stroke Diabetes Maternal Aunt Cancer Brother No problems noted. Son No problems noted. Son No problems noted. Sister No problems noted. Sister No problems noted. Daughter No problems noted. Social History Housing: Apartment Alcohol intake: former Patient Tobacco Use Status: Never used Tobacco e-Cigarette/Vaping Use: Never Used Second Hand Smoke Exposure: No service: No Current occupational status: unemployed Cognitive needs: No Hearing needs: No Vision needs: No Questionnaire Thrive Questionnaire Date Thrive assessed: 08/05/23 AKILA-7 AMB Questionnaire AKILA-7 Date AKILA - 7 assessed: 08/05/23 Source: Developed by Drs. Roderick Jay, Carissa Montague, Anup Reed and colleagues, with an educational yelitza from [employer]. Review of Systems Const All systems reviewed & are unremarkable except as noted in HPI and below Card Denies chest pain at rest, Denies chest pain with activity, Denies edema, Denies irregular heart rhythm, Denies claudication, Denies dyspnea, Denies dyspnea on exertion, Denies orthopnea, Denies paroxysmal nocturnal dyspnea and Denies slow heart rate Resp Denies cough, Denies dyspnea and Denies dyspnea on exertion GI Denies abdominal pain, Denies change in bowel habits, Denies excessive flatus, Denies nausea and Denies vomiting Denies urinary incontinence, Denies urinary hesitancy and Denies urinary urgency Musc Denies abnormal gait, Denies atrophy, Denies deformity and Denies limited range of motion Skin/Breast Denies bleeding lesions, Denies changing lesions and Denies rash Neuro Denies abnormal gait and Denies lack of coordination Physical exam (Primary Care) Vital Signs: Last Vital Signs BP 128/80 12/09/23 14:03 BMI result Body Mass Index 39.5 BMI Assessment/Plan discussion: High BMI High, discussed plan: lifestyle, weight reduction, dietary and physical activity Tobacco/Smoking Status: Tobacco use Status Tobacco use date assessed 08/05/23 12/09/23 14:05 Patient Tobacco Use Status Never used Tobacco 12/09/23 14:05 e-Cigarette/Vaping Use Never Used 12/09/23 14:05 Thrive Assessment: Date of Thrive Assessment Date Thrive assessed 08/05/23 12/09/23 14:05 Const General: cooperative Limitations: ambulation with cane HENMT Head: Yes normal to inspection, Yes normocephalic and Yes atraumatic Ears: external ears normal Eyes General: appearance normal, both eyes and all related structures Eyelids: Yes eyelids normal Conjunctivae: conjunctivae normal Neck Neck: Yes normal visual inspection and Yes supple Resp Effort & Inspection: normal respiratory effort Auscultation: clear to auscultation bilaterally Cardio Jugular venous distension: no JVD Rate: regular rate Rhythm: regular rhythm Heart sounds: S1 normal heart sound present and S2 normal heart sound present GI Inspection: Yes normal to inspection Palpation (GI): Soft to palpation and nontender Auscultation: normal bowel sounds Skin General skin exam: no rashes or lesions noted Neuro General: no focal motor deficits Extrem General: Yes full ROM Psych Appearance: grossly normal Assessment and Plan Assessment & Plan (1) Physical exam: Code(s): Z00.00 - Encounter for general adult medical examination without abnormal findings Plan: Repeat in a year. (2) Diabetes mellitus: Code(s): E11.9 - Type 2 diabetes mellitus without complications Qualifiers: Diabetes mellitus type: type 2 Diabetes mellitus superintendent container terminal insulin use: without superintendent container terminal use Diabetes mellitus complication status: without complication Qualified Code(s): E11.9 - Type 2 diabetes mellitus without complications Plan: Continue metformin. Start Trulicity. A1c goal is equal or less than 7%. Orders: Orders Lipid Panel 4 Months E78.5 - Hyperlipidemia, unspecified MM screening mammo BI 12/09/23 Z12.31 - Encounter for screening mammogram for malignant neoplasm of breast Microalbumin, Random (w Creat) 4 Months E11.9 - Type 2 diabetes mellitus without complications Comprehensive [place]. Panel Fast 4 Months E11.9 - Type 2 diabetes mellitus without complications MM screening mammo BI Today Z12.31 - Encounter for screening mammogram for malignant neoplasm of breast Medications: New dulaglutide (Trulicity) 0.75 mg (0.5 mL) subcut QWEEK 6.5 mL 0RF 90 days E11.9 - Type 2 diabetes mellitus without complications Coding Level of Care Code Est Pt Prev Care 40-64y(80896) Diagnoses Physical exam Z00.00 Type 2 diabetes mellitus without complication, without long-term current use of insulin E11.9 Diabetes mellitus type: type 2 Diabetes mellitus retirement insulin use: without retirement use Diabetes mellitus complication status: without complication Time Spent (min) 31
== END 2023-12-09 15:01 | disposition home or self-care (01) ==
PROVIDERS: PCP Internal Medicine; Visit Provider Internal Medicine
DX: Z00.00 Encounter for general adult medical examination without abnormal findings (principal); E11.9 Type 2 diabetes mellitus without complications
CPT/HCPCS: 99396

== ENCOUNTER → 2023-12-20 09:00 | Outpatient (BNVA) | payer OTHER, SELFPAY | PROVIDERS: PCP Internal Medicine; Visit Provider Physician Assistant ==

== ENCOUNTER 2023-12-24 14:42 | Outpatient (AMB) | payer OTHER, SELFPAY ==
--- NOTE | 2023-12-24 15:53 | HO.SPINEOV ---
Intake Visit Reasons: Thoracic radiculopathy Intake Note: Ms. Sonido Olivarez is here today c/o back pain. 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 She is a 58-year-old female presents to the office today for evaluation of a 2 month plus history of a pain that started abruptly in the middle of her thoracic spine maybe in the lower thoracic region actually, that radiates to the left side around to the front of her abdomen. She was initially in the emergency room at [facility] and I believe also here at [place]. She was thought to have a kidney stone but this ultimately ended up being negative. She was at [facility] for 5 days getting worked up and eventually an MRI done showed a disc herniation in the foramen at T11. She was discharged home. She was started on gabapentin which seems to work but it makes her very sleepy. [id number] medications have not been helpful. She comes in today for an evaluation. She does get tingling and numbness along the same distribution that she gets the pain. It has been difficult for her to do simple activity such as driving because just the twisting of her spine will make the pain get significantly amplified. PMH: She is diabetic but her A1c was 6, hypertension, other than that she tells me she is reasonably healthy. No history of heart attack, stroke, bleeding disorders. Social hx: She has not smoke, drink use any recreational drugs Medications: Metformin, gabapentin and Trulicity Allergies: Benadryl Physical exam: She has pinpoint tenderness in her lower thoracic spine. Motor exam reveals no focal deficits. Imaging review: Thoracic MRI done at [facility] shows what appears to be a small disc herniation at T11-12 on the left side tucked just into the foramen. No spinal cord compression seen. Impression: 58-year-old diabetic female presents with what sounds like a T11 radiculopathy secondary to the small disc herniation which is seen in the foramen at the T11-12 disc space. She is trying gabapentin which does seem to help. She has been dealing with the pain now for 2 months in his becoming very frustrating and affecting her quality of life inability to work. I am going to see if can do an injection and see if we can get this thing quieted down. Typically these will resolve on their own. Thank you for allowing us to care for your patient. The total time spent with this visit with this patient was 45 minutes reviewing history, physical exam, thoracic imaging review, and implementation of treatment plan or further diagnostic testing Rakesh Lim MD,PhD [facility] Orders: Referrals Pain Management Referral M54.14 - Radiculopathy, thoracic region Coding Level of Care Code New Pt Level 4 (45699) Diagnoses Thoracic radiculopathy M54.14
== END 2023-12-24 16:37 | disposition home or self-care (01) ==
PROVIDERS: PCP Internal Medicine; Referring Provider Internal Medicine; Visit Provider Physician Assistant
DX: M54.14 Radiculopathy, thoracic region (principal)
CPT/HCPCS: 99204

== ENCOUNTER → 2023-12-24 14:42 | Outpatient (BNVA) | payer OTHER, SELFPAY | PROVIDERS: PCP Internal Medicine; Visit Provider Physician Assistant | DX: M54.14 Radiculopathy, thoracic region (principal) | CPT/HCPCS: 99202 ==

== ENCOUNTER 2023-12-31 10:00 | Outpatient (REF) | payer OTHER, SELFPAY ==
--- NOTE | ~2023-12-31 | MM_ITS ---
EXAMINATION: MM SCREENING DIGITAL BREAST TOMOSYNTHESIS, BILATERAL CLINICAL INFORMATION: Screening. Asymptomatic. COMPARISON: Mammography: This study is compared with prior exams dating back to 2016. TECHNIQUE: Digital breast tomosynthesis is performed in both the craniocaudal and mediolateral oblique views along with computer-aided detection (CAD). Synthesized 2D images are generated from the tomosynthesis. FINDINGS: There are scattered areas of fibroglandular density (ACR BI-RADS breast composition Category b). There are no significant masses, abnormal calcifications, or other abnormalities. MM/MM tomosynthesis screening BI IMPRESSION: No mammographic evidence of malignancy. ASSESSMENT: BI-RADS BI-RADS 1 - Negative RECOMMENDATION: Routine annual mammography screening. 1 year F/U This examination should not preclude the clinical evaluation of a suspicious palpable abnormality. This patient's information was entered into a reminder system with a target due date for their next mammogram. Electronically signed by: Mary Rabago MD 01/27/2024 10:23 PM EDT
== END 2023-12-31 10:01 | disposition home or self-care (01) ==
LOC: HO.MAMMO 10:00
PROVIDERS: PCP Internal Medicine; Visit Provider Internal Medicine
DX: Z12.31 Encounter for screening mammogram for malignant neoplasm of breast (principal)
CPT/HCPCS: 77063; 77067

== ENCOUNTER → 2023-12-31 10:15 | Outpatient (BNV) | payer OTHER, SELFPAY | PROVIDERS: PCP Internal Medicine; Visit Provider Radiology Diagnostic Radiology | DX: Z12.31 Encounter for screening mammogram for malignant neoplasm of breast (principal) | CPT/HCPCS: 77063; 77067 ==

== ENCOUNTER 2024-02-07 09:13 | Outpatient (AMB) | payer OTHER, SELFPAY ==
[2024-02-07 09:43] VITALS: BP 130/72; PULSE 96; O2SAT 97; BMI 37.8
--- NOTE | 2024-02-07 09:43 | A.OFFVIS_ITS ---
Vital Signs 3 02/07/24 09:43 Height 5 ft 1 in Weight 200 lb BMI 37.8 BP 130/72 Blood Pressure Location Lt brachial Position Sitting Pulse 96 Pulse Source Pulse Oximeter Pulse Oximetry (%) 97 Oxygen Delivery Method Room Air Intake Visit Reasons: Thoracic Radiculopathy Allergies diphenhydramine [From Benadryl] Allergy (Verified 02/07/24 09:45) Shortness of Breath Medication List - Last Reconciled 02/07/24 by aMdhavi Mcdonnell, CORRESPONDENCE REVIEW CLERK amlodipine 2.5 mg PO DAILY 90 days blood sugar diagnostic (FreeStyle Lite Strips) 1 strip miscellaneous BID 30 days dulaglutide (Trulicity) 0.75 mg (0.5 mL) subcut QWEEK 90 days gabapentin 100 mg PO TID 30 days lancets (TRUEplus Lancets) 33 gauge miscellaneous BID 50 days lidocaine 5% 1 patch topical DAILY metformin 500 mg PO BID naloxone 4 mg/actuation (Narcan) 4 mg intranasal Q2M PRN 5 days omeprazole 20 mg PO BID 30 days oxycodone 5 mg PO BID PRN 3 days rosuvastatin 10 mg PO DAILY 90 days HPI HPI Thoracic Radiculopathy: Details: 58-year-old female who presents today to the office for evaluation of thoracic radiculopathy. She has a 3-month plus history of a pain that started abruptly in the middle of her thoracic spine, maybe in the lower thoracic region, that radiates to the left side around to the front of her abdomen. She does get tingling and numbness along the same distribution that she gets the pain. It has been difficult for her to do simple activities such as driving because just the twisting of her spine will make the pain get significantly amplified. She reports bending forward, sitting, walking, standing, and eating worsens her pain. She was initially in the emergency room at [facility] and [place]. She was thought to have a kidney stone, but this ultimately ended up being negative. She was at [facility] for 5 days getting worked up, and eventually an MRI done showed a disc herniation in the foramen at T11. She was then discharged home. She was started on gabapentin, which seems to work but it makes her very sleepy. Ebkd-dvh-jptppfy medications have not been helpful. [facility] Medical History Hyperlipidemia LDL goal <100 Rash Left shoulder pain Morbid obesity Shortness of breath Chronic fatigue Pure hypercholesterolemia Diabetes mellitus Surgical History History of esophagogastroduodenoscopy (EGD) History of colonoscopy History of Family History Father Hypertension Stroke Mother Hypertension Stroke Diabetes Maternal Aunt Cancer Brother No problems noted. Son No problems noted. Son No problems noted. Sister No problems noted. Sister No problems noted. Daughter No problems noted. Social History Housing: Apartment Alcohol intake: former Patient Tobacco Use Status: Never used Tobacco e-Cigarette/Vaping Use: Never Used Second Hand Smoke Exposure: No service: No Current occupational status: unemployed Cognitive needs: No Hearing needs: No Vision needs: No Review of Systems Const All systems reviewed & are unremarkable except as noted in HPI and below Physical Exam Vital Signs: Last Vital Signs Pulse 96 02/07/24 09:43 BP 130/72 02/07/24 09:43 Pulse Ox 97 02/07/24 09:43 Oxygen Delivery Method Room Air 02/07/24 09:43 BMI result Body Mass Index 37.8 General: Appears afebrile. Alert and oriented. Mood and affect appropriate. Follows and participates in conversation appropriately. Respiratory effort is unlabored. Able to transition from sit to stand unassisted. Ambulates with bilaterally normal heel strike and toe off. Axial rotation of the spine reproduces pain. Bending forward reproduces pain. Results Reviewed Results Reviewed: 11/26/23: MR THORACIC SPINE W/O CONT Assessment & Plan Assessment & Plan (1) Thoracic radiculopathy: Code(s): M54.14 - Radiculopathy, thoracic region Category: Medical Plan I would like to try a combination of physical therapy and injections as possible treatment options. For the time being, I encouraged her to continue with strengthening exercises and physical therapy. A referral was provided to physical therapy. The patient will receive a call to schedule an appointment. We will schedule her for a T11-12 left parasagittal epidural steroid injection for?thoracic?radiculopathy. Discussed the risks and benefits of the procedure with the patient in detail. All questions were answered. The patient is on board with the plan. Justification for interventional therapy: ? Patient with average pain > 6/10 ? Patient has exhausted conservative therapy ? Actively performing physical therapy . Patient has a good understanding of their pain condition and has appropriate mental and social support Scribed for Dr. Menchaca by Robert Hutson, infertility medical assistant, on 02/07/2024. I, Dr. Menchaca, have personally reviewed and agree with the information entered by the scribe. Orders: Orders 2 PT Evaluation and Treatment 02/07/24 M54.14 - Radiculopathy, thoracic region Coding Level of Care Code New Pt Level 4 (96671) Diagnoses Thoracic radiculopathy M54.14
== END 2024-02-07 10:31 | disposition home or self-care (01) ==
LOC: HO.PMC 09:14
PROVIDERS: PCP Internal Medicine; Referring Provider Physician Assistant; Visit Provider Internal Medicine
DX: M54.14 Radiculopathy, thoracic region (principal)
CPT/HCPCS: 99204

== ENCOUNTER → 2024-02-07 09:13 | Outpatient (BNVA) | payer OTHER, SELFPAY | PROVIDERS: PCP Internal Medicine; Referring Provider Physician Assistant; Visit Provider Internal Medicine | DX: M54.14 Radiculopathy, thoracic region (principal) | CPT/HCPCS: 99202 ==

== ENCOUNTER 2024-04-03 15:04 | Outpatient (RCR) | payer OTHER, SELFPAY ==
--- NOTE | 2024-02-29 12:49 | MHC.PT.EP ---
[facility] [place] Office [place] Office [place] Office [address] Tiffany Hernandez [address] [phone] F: [phone] F: [phone] F: [phone] F: [phone] Physical Therapy Plan of Care Date of Evaluation: 02/29/24 Date of Surgery: Diagnosis: Thoracic radiculopathy (MD Dx) T11 disc extrusion to L (MRI) RS Assessment: Amber is a 58 yo female referred by Dr. Nikolai MD of [facility] for thoracic radiculopathy. Outside MRI report on pain management note reveals T11 disc extrusion compress L nerve root. Pt is a candidate for injections but insurance requires PT before approving injection. Impairments include pain with radiculopathy L side, limited lumbar ROM, difficulty with transfers, decreased shoulder strength, and TTP along T/spine resulting in her inability to reach overhead, bend down, or use stairs. 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 She will benefit from skilled PT to address impairments and improve functional ability. Frequency and Duration: The patient will be seen 2x/week for 4 weeks Short Term Goals: 2 weeks Patient will be able to do HEP for independent management. Patient presents with increased arm swing/trunk rotation with gait to be able to transfer from sitting to supine easier without labored movements. Glass Forming Engineer Goals: 4 weeks Patient will increase lumbar flexion ROM to 90 degrees to bend and pick things off the ground. Patient will decrease pain 2/10 with functional activities to use the stairs into her home without limitation. Treatment Plan: Modalities to reduce pain, spasms and effusion. Manual therapy to restore motion and function. Therapeutic exercise to improve strength and flexibility. Neuromuscular re-education for posture and balance. Therapeutic activities to return to functional activities of daily living. Electronically signed by: Joseph Donahue, PT, DPT Please sign and return to therapist. Thank you for your referral.
--- NOTE | 2024-05-12 09:44 | MHC.PT.DC ---
[facility] [place] Office [place] Office [place] Office [address] Tiffany Hernandez [address] [phone] F: [phone] F: [phone] F: [phone] F: [phone] Physical Therapy Discharge Report Diagnosis: Thoracic radiculopathy ( Dx) T11 disc extrusion to L (MRI) RS Date of Surgery: Date of Evaluation: 02/29/24 Date of Discharge: 05/12/24 Treatments to Date: 9 Cancellations to Date: 2 No Shows to Date: 2 Discharge Status: Improved Function Independent with HEP Patient Elected to Stop Discharge Summary: Amber was last seen in PT on 04/03/24. The PT assessment on that date reads, Amber is progressing with core stability. She performed all weighted exercises with proper form and without limitation. Her posture continues to present with rounded shoulders and kyphosis - added rows to address postural endurance. Pt had no reports of pain throughout session. She scheduled more PT visits after this session but then she did not show to the visits. She is therefore discharged from PT at this time. Electronically signed by: Joseph Donahue, PT, DPT Please sign and return to therapist. Thank you for your referral.
== END 2024-05-12 09:45 | disposition home or self-care (01) ==
LOC: HO.PT 15:04
PROVIDERS: PCP Internal Medicine; Visit Provider Internal Medicine
DX: M54.14 Radiculopathy, thoracic region (principal)
CPT/HCPCS: 97014; 97110; 97112; 97161; 97530

== ENCOUNTER 2024-06-16 13:41 | Emergency (ER) | payer OTHER, SELFPAY ==
--- NOTE | ~2024-06-16 | XR_ITS ---
EXAMINATION: XR CHEST CLINICAL INFORMATION: cough COMPARISON: July 09, 2021. TECHNIQUE: Frontal view of the chest was obtained. FINDINGS: No consolidation, pleural effusion or pneumothorax. Cardiomediastinal silhouette appears unchanged with calcified plaque thoracic aortic arch. Multilevel thoracic and upper lumbar spondylosis. S-shaped curvature of the thoracolumbar spine. Patient's large body habitus/obesity. XR/XR chest 1V IMPRESSION: No acute airspace disease. Stable chest. Electronically signed by: Venkat Moe MD 06/16/2024 03:04 PM [facility]
[2024-06-16 14:19] VITALS: BP 160/88; PULSE 110; RESP 19; TEMP 37.4; O2SAT 97; BMI 37.8
--- NOTE | 2024-06-16 14:21 | ED.FEVER ---
HPI - Fever General Chief Complaint: Upper Respiratory Symptoms Stated Complaint: Flu Symptoms Related Data Previous Rx's ?Medication ?Instructions ?Recorded lancets 33 gauge (TRUEplus Lancets) 33 gauge miscellaneous BID for 12/11/20 diabetes mellitus 50 days #100 ea lidocaine 5 % topical patch 1 patch topical DAILY #30 ea 10/28/23 omeprazole 20 mg capsule,delayed 20 mg PO BID 30 days #60 caps 11/23/23 release gabapentin 100 mg capsule 100 mg PO TID 30 days #90 caps 12/02/23 naloxone 4 mg/actuation nasal 4 mg intranasal Q2M PRN opioid 12/02/23 spray (Narcan) overdose 5 days #2 ea oxycodone 5 mg tablet 5 mg PO BID PRN pain 3 days #6 tabs 12/02/23 rosuvastatin 10 mg tablet 10 mg PO DAILY 90 days #90 tabs 12/02/23 amlodipine 2.5 mg tablet 2.5 mg PO DAILY 90 days #90 tabs 01/17/24 metformin 500 mg tablet 500 mg PO BID #180 tabs 01/28/24 blood sugar diagnostic (FreeStyle 1 strip miscellaneous BID for 02/01/24 Lite Strips) diabetes mellitus 30 days #100 strips dulaglutide 0.75 mg/0.5 mL 0.75 mg (0.5 mL) subcut QWEEK 90 03/03/24 subcutaneous pen injector days #6.5 mL (Trulicity) ondansetron 4 mg disintegrating 4 mg PO Q8H PRN nausea and 06/17/24 tablet vomiting #12 tabs oseltamivir 75 mg capsule (Tamiflu) 75 mg PO Q12H 5 days #10 caps 06/17/24 Allergies Allergy/AdvReac Type Severity Reaction Status Date / Time diphenhydramine Allergy Shortness Verified 06/16/24 22:01 [From Benadryl] of Breath PMFSH Past Medical History Medical History Hyperlipidemia LDL goal <100 Rash Left shoulder pain Morbid obesity Shortness of breath Chronic fatigue Pure hypercholesterolemia Diabetes mellitus Surgical History History of esophagogastroduodenoscopy (EGD) History of colonoscopy History of Family History Family History Father Hypertension Stroke Mother Hypertension Stroke Diabetes Maternal Aunt Cancer Brother No problems noted. Son No problems noted. Son No problems noted. Sister No problems noted. Sister No problems noted. Daughter No problems noted. Social History Social History Housing: Apartment Unable to assess alcohol history related to: Unknown Alcohol intake: former Patient Tobacco Use Status: Never used Tobacco e-Cigarette/Vaping Use: Never Used Second Hand Smoke Exposure: No Use of substances other than those prescribed or required for medical reasons: Unknown Advance Directives: No Advance Directives Information Provided: Yes Do you have a plan to hurt others: No Plan Patient : No service: No Current occupational status: unemployed Cognitive needs: No Hearing needs: No Vision needs: No Physical Exam Vital Signs: Vital Signs: Last Vital Signs Temp 99.3 F 06/16/24 14:19 Pulse 110 H 06/16/24 14:19 Resp 19 06/16/24 14:19 BP 160/88 H 06/16/24 14:19 Pulse Ox 97 06/16/24 14:19 O2 Del Method Room Air 06/16/24 14:19 BMI result Body Mass Index 37.8 Course Course Course Narrative: This is a rapid medical exam performed by Ayaka Juan PA-C. The patient is a 58-year-old female with a history of hyperlipidemia, diabetes, hypertension, who presents with cough and cold symptoms x1 day. Patient states her grandson has been sick, she has an active spasm me dry cough with fevers at home of 102. On exam, she has active bronchospasm cough, but lungs are clear no wheezing. Plan to obtain a chest x-ray and viral panel. The patient is stable and can return to the waiting room pending her full medical assessment. Medical Decision Making Lab Data Labs: Lab Results 06/16/24 Range/Units 16:20 Influenza Type A (PCR) POSITIVE A (Negative) Influenza Type B (PCR) NEGATIVE (Negative) RSV RNA Qual (PCR) NEGATIVE (Negative) SARS-CoV-2 RNA (RT-PCR) NEGATIVE (Negative) Discharge Plan Discharge Clinical Impression: Viral illness Patient Disposition: Left W/O Completing Treatment Prescriptions: No Action lancets [TRUEplus Lancets] 33 gauge misc 33 gauge miscellaneous BID 50 Days Qty: 100 11RF omeprazole 20 mg capsule,delayed release(DR/EC) 20 mg PO BID 30 Days Qty: 60 2RF amlodipine 2.5 mg tablet 2.5 mg PO DAILY 90 Days Qty: 90 2RF metformin 500 mg tablet 500 mg PO BID Qty: 180 6RF FreeStyle Lite Strips Strip 1 strip miscellaneous BID 30 Days Qty: 100 11RF Trulicity 0.75 mg/0.5 mL pen injector 0.75 mg subcut QWEEK 90 Days Qty: 6.5 2RF lidocaine 5 % adhesive patch,medicated 1 patch topical DAILY Qty: 30 0RF Rx Instructions: leave on most painful area for up to 12 hrs oseltamivir [Tamiflu] 75 mg capsule 75 mg PO Q12H 5 Days Qty: 10 0RF ondansetron 4 mg tablet,disintegrating 4 mg PO Q8H PRN (Reason: nausea and vomiting) Qty: 12 0RF gabapentin 100 mg capsule 100 mg PO TID 30 Days Qty: 90 0RF oxycodone 5 mg tablet 5 mg PO BID PRN (Reason: pain) 3 Days Qty: 6 0RF Rx Instructions: Partial Fill upon patient request. naloxone [Narcan] 4 mg/actuation spray,non-aerosol 4 mg intranasal Q2M PRN (Reason: opioid overdose) 5 Days Qty: 2 0RF Rx Instructions: spray 1 dose into ONE nostril; alternate nostrils w each dose until help arrives rosuvastatin 10 mg tablet 10 mg PO DAILY 90 Days Qty: 90 1RF Discharge Date/Time: 06/16/24 19:39
--- OUTSIDE RECORDS SUMMARY | 2024-06-16 15:59 | XMS_ITS | Clinical Summary ---
Author Organization [employer] Address [address] [place] [address] [address] [place] [address] Care Team Providers Care Clip On Sunglasses Inspector Name Role Phone Unavailable Primary Care Provider Unavailabl e Social History Tobacco Use Types Packs/Day Years Used Date Smoking Tobacco: Never Assessed Comments Unknown Sex and Gender Information Value Date Recorded Sex Assigned at Female 03/09/2022 10:32 AM EDT Legal Sex Female 10:32 AM EDT Gender Identity Female 03/09/2022 10:32 AM EDT Sexual Orientation Straight 03/09/2022 10 :32 AM EDT Plan of Treatment Health Maintenance Due Date Last Done Comments CT Colonography 1965 Colonoscopy 1965 Colorectal Cancer Screening 1965 Depression Screening 1965 FIT DNA/Cologuard 1965 FIT 1965 FOBT 1965 HIV Screening 1965 SDOH Screening 1965 Sigmoidoscopy 1965 Alcohol/Substance Use Screening 1975 Tobacco Screening 1975 Hepatitis C Screening 09/10/1981 DTaP/Tdap/Td Vaccines (1 - Tdap) 09/10/1982 Pap Smear 09/10/1984 Cervical Cancer Screening 09/10/1993 HPV/Cotest 09/10/1993 Mammogram 2003 Pneumococcal Vaccine: 50+ Years (1 of 1 - PCV) 09/10/2013 Zoster Vaccines (1 of 2) 09/10/2013 Dental Oral Exam 09/03/2022 03/04/2022 Dental Prophylaxis 09/09/2022 03/11/2022 Dental X-Ray: Bitewings 03/05/2023 03/04/20 22, 02/06/2022 COVID-19 Vaccine (2023-2 5 season) 2024 03/16/2022, 01/31/2021, 01/10/2021 Influenza Vaccine (#1) 2024 03/26/2022 Dental X-Ray: Full Mouth 03/05/2025 03/04/2022 RSV Patients and Patients Aged 60 years or older (1 - 1-dose 75+ series) 09/10/2038 HIB Vaccines Aged Out No longer eligi ble based on patient's age to complete this topic HPV Vaccines Aged Out No longer eligi ble based on patient's age to complete this topic Hepatitis A Vaccines Aged Out No long er eligible based on patient's age to complete this topic Hepatitis B Vaccines Aged Out No long er eligible based on patient's age to complete this topic IPV Vaccines Aged Out No longer eligi ble based on patient's age to complete this topic Meningococcal Vaccine Aged Out No [facility] eligible based on patient's age to complete this topic RSV under 20 months Aged Out No longe r eligible based on patient's age to complete this topic Rotavirus Vaccines Aged Out No longer eligible based on patient's age to complete this topic Procedures Procedure Name Priority Date/Time Associated Diagnosis Comments PROPHYLAXIS - ADULT Routine 03/11/2022 1 2:00 AM EDT DIAGNOSTIC - DIAGNOSTIC IMAGING - INTRAORAL - COMPREHENSIVE SERIES OF RADIOGRAPHIC IMAGES Routine 03/04/2022 12:00 AM EDT COMPREHENSIVE ORAL EVALUATION - NEW OR ESTABLISHED PATIENT Routine 03/04/2022 12:00 AM EDT from Last 3 Months or Most Recently Relevant to Health Maintenance Insurance [facility] MEDICAID STAND ADULT
--- OUTSIDE RECORDS SUMMARY | 2024-06-16 15:59 | XMS_ITS | Encounter Summary ---
Author Organization [employer] Address [address] [facility] [address] [place] [address] Care Team Providers Care Aircraft Rigging And Controls Mechanic Name Role Phone Unavailable Primary Care Provider Unavailabl e Encounter Details Date Type Department Care Team (Latest Contact Info) Description 03/11/2022 Abstract [facility] CONVERSIONS Dental, Provider, DDS Social History Tobacco Use Types Packs/Day Years Used Date Smoking Tobacco: Never Assessed Comments Unknown Sex and Gender Information Value Date Recorded Sex Assigned at Female 03/09/2022 10:32 AM EDT Legal Sex Female 10:32 AM EDT Gender Identity Female 03/09/2022 10:32 AM EDT Sexual Orientation Straight 03/09/2022 10 :32 AM EDT documented as of this encounter Plan of Treatment Not on file documented as of this encounter Visit Diagnoses Not on filedocumented in this encounter
--- OUTSIDE RECORDS SUMMARY | 2024-06-16 15:59 | XMS_ITS | Encounter Summary ---
Author Organization [employer] Address [address] [facility] [address] [place] [address] Care Team Providers Care Fast Food Manager Name Role Phone Unavailable Primary Care Provider Unavailabl e Encounter Details Date Type Department Care Team ([facility] st Contact Info) Description 04/30/2022 Abstract [facility] ADULT DENTAL [address] [place] [address] Refugio Elliott DDS [address] [place] [address] Social History Tobacco Use Types Packs/Day Years [...]
[2024-06-16 17:07] LABS: Influenza A PCR POSITIVE (Negative); Influenza B PCR NEGATIVE (Negative); Resp Syncy Virus RNA Qual PCR NEGATIVE (Negative); SARS COV2 PCR INHOUSE NEGATIVE (Negative)
== END 2024-06-16 19:39 | disposition left against medical advice (07) ==
PROVIDERS: Physician Assistant Medical; Emergency Provider Emergency Medicine; PCP Internal Medicine
DX: B34.9 Viral infection, unspecified (principal); J10.1 Influenza due to other identified influenza virus with other respiratory manifestations; R05.9 Cough, unspecified; R50.9 Fever, unspecified; Z03.818 Encounter for observation for suspected exposure to other biological agents ruled out
CPT/HCPCS: 0241U; 71045; 99281; 99283

== ENCOUNTER 2024-06-16 21:50 | Emergency (ER) | payer OTHER, SELFPAY ==
[2024-06-16 21:59] VITALS: BP 120/58; PULSE 77; RESP 19; TEMP 37.8; O2SAT 97; BMI 37.8
[2024-06-16 22:33] VITALS: O2SAT 97
[2024-06-16 23:45] VITALS: BP 160/83; PULSE 102; RESP 20; TEMP 37.6; O2SAT 96
--- NOTE | 2024-06-17 00:11 | ED_ITS ---
HPI - General Adult General Chief complaint: Upper Respiratory Symptoms Stated complaint: URI Time Seen by Provider: 06/16/24 23:54 Source: patient and RN notes reviewed History of Present Illness HPI narrative: 58-year-old female with a history of hypertension, diabetes, presents for evaluation of generalized malaise and myalgias that has been going on since yesterday. She reports positive sick contacts with the son with similar symptoms. Patient reports subjective fevers and chills. She has not had any nausea or vomiting. She denies any tobacco use. She denies any chest pain or shortness of breath. No coughing. Related Data Previous Rx's ?Medication ?Instructions ?Recorded lancets 33 gauge (TRUEplus Lancets) 33 gauge miscellaneous BID for 12/11/20 diabetes mellitus 50 days #100 ea lidocaine 5 % topical patch 1 patch topical DAILY #30 ea 10/28/23 omeprazole 20 mg capsule,delayed 20 mg PO BID 30 days #60 caps 11/23/23 release gabapentin 100 mg capsule 100 mg PO TID 30 days #90 caps 12/02/23 naloxone 4 mg/actuation nasal 4 mg intranasal Q2M PRN opioid 12/02/23 spray (Narcan) overdose 5 days #2 ea oxycodone 5 mg tablet 5 mg PO BID PRN pain 3 days #6 tabs 12/02/23 rosuvastatin 10 mg tablet 10 mg PO DAILY 90 days #90 tabs 12/02/23 amlodipine 2.5 mg tablet 2.5 mg PO DAILY 90 days #90 tabs 01/17/24 metformin 500 mg tablet 500 mg PO BID #180 tabs 01/28/24 blood sugar diagnostic (FreeStyle 1 strip miscellaneous BID for 02/01/24 Lite Strips) diabetes mellitus 30 days #100 strips dulaglutide 0.75 mg/0.5 mL 0.75 mg (0.5 mL) subcut QWEEK 90 03/03/24 subcutaneous pen injector days #6.5 mL (Trulicity) ondansetron 4 mg disintegrating 4 mg PO Q8H PRN nausea and 06/17/24 tablet vomiting #12 tabs oseltamivir 75 mg capsule (Tamiflu) 75 mg PO Q12H 5 days #10 caps 06/17/24 Allergies Allergy/AdvReac Type Severity Reaction Status Date / Time diphenhydramine Allergy Shortness Verified 06/16/24 22:01 [From Benadryl] of Breath Review of Systems Constitutional: Constitutional: Reports as per HPI, Reports chills, Reports fatigue, Reports fever(s) and Reports headache(s) ENT: Reports headache(s) Cardiovascular: Cardiovascular: Denies chest pain and Denies dyspnea Respiratory: Respiratory: Denies cough and Denies dyspnea Gastrointestinal: Gastrointestinal: Denies abdominal pain, Denies constipation, Denies nausea and Denies vomiting Genitourinary: Genitourinary: Denies dysuria Neurologic: Reports headache(s) and Denies focal weakness Endocrine: Endocrine: Reports fatigue [facility] Past Medical History Medical History Hyperlipidemia LDL goal <100 Rash Left shoulder pain Morbid obesity Shortness of breath Chronic fatigue Pure hypercholesterolemia Diabetes mellitus Surgical History History of esophagogastroduodenoscopy (EGD) History of colonoscopy History of Family History Family History Father Hypertension Stroke Mother Hypertension Stroke Diabetes Maternal Aunt Cancer Brother No problems noted. Son No problems noted. Son No problems noted. Sister No problems noted. Sister No problems noted. Daughter No problems noted. Social History Social History Housing: Apartment Unable to assess alcohol history related to: Unknown Alcohol intake: former Patient Tobacco Use Status: Never used Tobacco e-Cigarette/Vaping Use: Never Used Second Hand Smoke Exposure: No Use of substances other than those prescribed or required for medical reasons: Unknown Advance Directives: No Advance Directives Information Provided: Yes Do you have a plan to hurt others: No Plan Patient : No service: No Current occupational status: unemployed Cognitive needs: No Hearing needs: No Vision needs: No Physical Exam ED Vital Signs: Vital Signs - 24 hr 06/16/24 21:59 06/16/24 22:33 06/16/24 23:45 Temperature 100.1 F 99.6 F Pulse Rate 77 102 H Respiratory Rate 19 20 Blood Pressure 120/58 L 160/83 H Pulse Oximetry 97 97 96 Oxygen Delivery Method Room Air Room Air Room Air BMI result Body Mass Index 37.8 Const General: cooperative Resp Auscultation: clear to auscultation bilaterally Cardio Rate: regular rate Rhythm: regular rhythm Skin General skin exam: no rashes or lesions noted Medical Decision Making Medical Decision Making MDM Narrative: 58-year-old female with a history of hypertension, diabetes, within a 24 hour history of general malaise. Positive influenza A. Chest x-ray without any infiltrate. Patient agreeable to Tamiflu. Hemodynamically stable without any hypoxia. Reviewed all discharge instructions. No further questions at this time. Differential Diagnosis Differential Diagnoses: The differential diagnosis associated with the presentation includes Pneumonia Influenza Viral syndrome Dehydration Admission/Observation Consideration of admission/observation: Escalation of care including admission/observation considered Lab Data MDM Lab Attestation statement: I reviewed the patient's lab results. Radiology Impression Discussion of test interpretation with radiology: I have reviewed the radiologist's reading. Radiologist Impression: [address] [address] XRay Report Signed Patient: Amber Millard MR#: [id number] : 1965 Acct:[id number] Age/Sex: 58 / F ADM Date: 06/16/24 Loc: HO.ED Attending Dr: Ordering Physician: Ayaka Juan Date of Service: 06/16/24 Procedure(s): XR chest 1V Accession Number(s): [id number] cc: Ayaka Juan; Selina Mckeon MD~ EXAMINATION: XR CHEST CLINICAL INFORMATION: cough COMPARISON: July 09, 2021. TECHNIQUE: Frontal view of the chest was obtained. FINDINGS: No consolidation, pleural effusion or pneumothorax. Cardiomediastinal silhouette appears unchanged with calcified plaque thoracic aortic arch. Multilevel thoracic and upper lumbar spondylosis. S-shaped curvature of the thoracolumbar spine. Patient's large body habitus/obesity. XR/XR chest 1V IMPRESSION: No acute airspace disease. Stable chest. Electronically signed by: Venkat Moe MD 06/16/2024 03:04 PM [facility] Dictated By: Venkat Wade MD Signed By: <Electronically signed by Venkat Canales MD in OV> 06/16/24 1504 DD/ 1455 TD/TT: 06/16/24 1456 Well Logging Operator Mud Analysis: Chronic Conditions Patient?s care impacted by: Diabetes and Hypertension Discharge Plan Discharge Clinical Impression: Influenza A Patient Disposition: Home, Self-Care Instructions: Influenza (ED) Additional Instructions: Tamiflu as directed. Zofran as directed for nausea. Drink plenty of fluids. Follow-up with your primary care provider. Call this week to schedule a follow- up appointment. Return to the emergency department if you have any worsening of symptoms, or any concerns. Get well soon! Prescriptions: New oseltamivir [Tamiflu] 75 mg capsule 75 mg PO Q12H 5 Days Qty: 10 0RF ondansetron 4 mg tablet,disintegrating 4 mg PO Q8H PRN (Reason: nausea and vomiting) Qty: 12 0RF No Action lancets [TRUEplus Lancets] 33 gauge misc 33 gauge miscellaneous BID 50 Days Qty: 100 11RF omeprazole 20 mg capsule,delayed release(DR/EC) 20 mg PO BID 30 Days Qty: 60 2RF amlodipine 2.5 mg tablet 2.5 mg PO DAILY 90 Days Qty: 90 2RF metformin 500 mg tablet 500 mg PO BID Qty: 180 6RF FreeStyle Lite Strips Strip 1 strip miscellaneous BID 30 Days Qty: 100 11RF Trulicity 0.75 mg/0.5 mL pen injector 0.75 mg subcut QWEEK 90 Days Qty: 6.5 2RF lidocaine 5 % adhesive patch,medicated 1 patch topical DAILY Qty: 30 0RF Rx Instructions: leave on most painful area for up to 12 hrs gabapentin 100 mg capsule 100 mg PO TID 30 Days Qty: 90 0RF oxycodone 5 mg tablet 5 mg PO BID PRN (Reason: pain) 3 Days Qty: 6 0RF Rx Instructions: Partial Fill upon patient request. naloxone [Narcan] 4 mg/actuation spray,non-aerosol 4 mg intranasal Q2M PRN (Reason: opioid overdose) 5 Days Qty: 2 0RF Rx Instructions: spray 1 dose into ONE nostril; alternate nostrils w each dose until help arrives rosuvastatin 10 mg tablet 10 mg PO DAILY 90 Days Qty: 90 1RF Print Language: Polish
[2024-06-17] MEDS: Oseltamivir Phosphate 75 MG CAPSULE PO (00:32)
[2024-06-17 00:36] VITALS: BP 160/83; PULSE 102; RESP 20; TEMP 37.6; O2SAT 96
== END 2024-06-17 01:00 | disposition home or self-care (01) ==
PROVIDERS: Emergency Provider Emergency Medicine; PCP Internal Medicine
DX: J10.1 Influenza due to other identified influenza virus with other respiratory manifestations (principal); M79.10 Myalgia, unspecified site
CPT/HCPCS: 99283; 99284

== ENCOUNTER 2024-12-14 06:59 | Outpatient (REF) | payer OTHER, SELFPAY ==
--- OUTSIDE RECORDS SUMMARY | 2024-12-14 07:00 | XMS_ITS | Encounter Summary ---
Author Organization [employer] Address [address] [facility] [address] [place] [address] Care Team Providers Care Radiosonde Operator Name Role Phone Unavailable Primary Care Provider Unavailabl e Encounter Details Date Type Department Care Team ([facility] st Contact Info) Description 04/30/2022 Abstract [facility] ADULT DENTAL [address] [place] [address] Refugio Elliott DDS [address] [place] [address] Social History Tobacco Use Types Packs/Day Years [...]
[2024-12-14 08:42] LABS: Alanine Aminotransferase 20 U/L (0-31); Albumin Level 4.0 g/dL (3.5-5.0); Alkaline Phosphatase 80 U/L (39-117); Anion Gap 12 (12-20); Aspartate Amino Transferase 21 U/L (5-31); Blood Urea Nitrogen 12 mg/dL (9-16); Calcium 8.9 mg/dL (8.4-10.2); Carbon Dioxide 24 mmol/L (22-29); Chloride 108 mmol/L (96-108); Cholesterol 165 mg/dL (<200); Estimated Glomerular Filt Rate > 60; HDL Cholesterol 32 mg/dL (>40); Potassium 4.4 mmol/L (3.3-5.1); Sodium 140 mmol/L (135-145); Total Protein 7.5 g/dL (6.5-8.0); Triglycerides 94 mg/dL (<150)
[2024-12-14 08:47] LABS: Microalbum/Creatinine Ratio Ur 11.9 ug/mg cr (<30)
== END 2024-12-14 07:00 | disposition home or self-care (01) ==
LOC: HO.LAB 06:59
PROVIDERS: PCP Internal Medicine; Visit Provider Internal Medicine
DX: Z00.00 Encounter for general adult medical examination without abnormal findings (principal); Z23 Encounter for immunization; E11.9 Type 2 diabetes mellitus without complications; E55.9 Vitamin D deficiency, unspecified; E78.5 Hyperlipidemia, unspecified; R80.9 Proteinuria, unspecified
CPT/HCPCS: 36415; 80053; 80061; 82043; 82306; 82570; 83036; 90471; 90715; 96127; 99212; 99396

== ENCOUNTER 2024-12-14 09:33 | Outpatient (AMB) | payer OTHER, SELFPAY ==
--- NOTE | 2024-12-14 09:38 | A.OFFPC_ITS ---
Vital Signs 12/14/24 09:41 Height 5 ft 1 in Weight 233 lb BMI 44.0 BP 126/84 Blood Pressure Location Lt brachial Position Sitting Intake Visit Reasons: annual exam Intake Note: Patient here for an annual physical exam Liquor Merchant Required: No Accompanied by: Self / Same As Patient Allergies diphenhydramine (From Benadryl) Allergy (Verified 12/14/24 09:47) Shortness of Breath Medication List - Last Reconciled 12/14/24 by Selina Carrion MD amlodipine 2.5 mg PO DAILY 90 days blood sugar diagnostic (FreeStyle Lite Strips) 1 strip miscellaneous BID 30 days dulaglutide (Trulicity) 0.75 mg (0.5 mL) subcut QWEEK 90 days gabapentin 100 mg PO TID 30 days lancets (TRUEplus Lancets) 33 gauge miscellaneous BID 50 days lidocaine 5% 1 patch topical DAILY metformin 500 mg PO BID naloxone 4 mg/actuation (Narcan) 4 mg intranasal Q2M PRN 5 days omeprazole 40 mg PO DAILY 90 days ondansetron 4 mg PO Q8H PRN oseltamivir (Tamiflu) 75 mg PO Q12H 5 days oxycodone 5 mg PO BID PRN 3 days rosuvastatin 10 mg PO DAILY 90 days Tobacco use date assessed: 12/14/24 Dental Screening Dental Screen Date: 12/14/24 Did you have a dental visit in the last 12 months?: No Did you have a dental problem in the last 6 months where you did not have access to dental care?: No Was dental information given to patient?: Patient has dentist HPI HPI Comments History of Present Illness Details The patient is a 59-year-old female presenting for an annual physical examination and management of chronic conditions. The patient has a history of Type 2 Diabetes Mellitus with a recent HbA1c of 7.1%, slightly above the target of 7%. She is currently prescribed Metformin 500 mg twice daily and Trulicity, although there have been issues with obtaining the latter due to insurance approval requirements. The patient reports some weight loss with Trulicity, but her current weight is 233 pounds, with a BMI of 44, indicating obesity. The patient has a history of hypertension, currently managed with Amlodipine 2.5 mg, and her blood pressure is well-controlled at 126/84 mmHg. She also has hyperlipidemia, with an LDL cholesterol level of 114 mg/dL, above the target of 70 mg/dL. She is prescribed Rosuvastatin 10 mg for cholesterol management, but there have been issues with obtaining the medication. The patient has a history of vitamin D deficiency, which is currently being m onitored. In terms of preventative care, the patient had a mammogram on December 30 of the previous year and is due for another one soon. She underwent a colonoscopy last year, which revealed a hyperplastic polyp. The patient is also due for a tetanus vaccination, which was discussed during the visit. - Mammography: Last performed on December 2023 of the previous year, due for follow-up. - Colonoscopy: Last performed last year, revealed hyperplastic polyp. - Tetanus vaccination: Discussed and due for administration. - Vitamin D supplementation: Recommended due to deficiency. [facility] Medical History Hyperlipidemia LDL goal <100 Rash Left shoulder pain Morbid obesity Shortness of breath Chronic fatigue Pure hypercholesterolemia Diabetes mellitus Surgical History History of esophagogastroduodenoscopy (EGD) History of colonoscopy History of Family History Father Hypertension Stroke Mother Hypertension Stroke Diabetes Maternal Aunt Cancer Brother No problems noted. Son No problems noted. Son No problems noted. Sister No problems noted. Sister No problems noted. Daughter No problems noted. Social History (Updated 12/14/24 @ 09:58 by Selina Carrion MD) Housing: Apartment Unable to assess alcohol history related to: Unknown Alcohol intake: current Alcohol intake frequency: holidays/special occasions only Alcohol type: wine and hard liquor Patient Tobacco Use Status: Never used Tobacco e-Cigarette/Vaping Use: Never Used Second Hand Smoke Exposure: No service: No Current occupational status: unemployed Cognitive needs: No Hearing needs: No Vision needs: No Questionnaire PHQ-9 Over the last 2 weeks, how often have you been bothered by any of the following problems? 1. Little interest or pleasure in doing things: not at all 2. Feeling down, depressed, or hopeless: not at all 3. Trouble falling or staying asleep, or sleeping too much: several days 4. Feeling tired or having little energy: several days 5. Poor appetite or overeating: several days 6. Feeling bad about yourself - or that you are a failure or have let yourself or your family down: several days 7. Trouble concentrating on things, such as reading the newspaper or watching television: not at all 8. Moving or speaking so slowly that other people could have noticed. Or the opposite - being so fidgety or restless that you have been moving around a lot more than usual: not at all 9. Thoughts that you would be better off or of hurting yourself in some way: not at all Total score: 4 Depression Screening Interpretation: Positive Depression Screening Follow-up: Existing condition and Follow-up Visit Requested Depression Screening Done: Yes 65312 - PHQ-9 Billing: Yes Source: Developed by Drs. Roderick Jay, Carissa Montague, Anup Reed and colleagues, with an educational yelitza from [email or web address]. Thrive Questionnaire Date Thrive assessed: 12/14/24 I am a: Patient What is your living situation today?: I have a steady place to live Within the past 12 months, did the food you bought not last and you didn't have the money to get more?: Often true Within the past 12 months, did you worry whether your food would run out before you got money to buy more?: Often true Do you have trouble paying for medicines?: No Do you have trouble getting transportation to medical appointments?: No Do you have trouble paying your heating and electricity bill?: Yes Do you have trouble taking care of your child, family member or friend?: No Do you have trouble with day-to-day activities such as bathing, preparing meals, shopping, managing finances, etc.?: No Are you currently unemployed and looking for a job?: No Are you interested in more education?: No Please select the resources that you would like help with: None Currently or been in a relationship where the following occur: No concerns reported THRIVE Score: 3 AUDIT C Alcohol Use Questionnaire (AUDIT-C) 1. How often do you have a drink containing alcohol?: Monthly or less 2. How many drinks containing alcohol do you have on a typical day when you are drinking?: 1 or 2 3. How often do you have six or more drinks on one occasion?: Never Total Score: 1 Score Reviewed/Action Taken: No AKILA-7 AMB Questionnaire AKILA-7 Date AKILA - 7 assessed: 12/14/24 Feeling nervous, anxious, or on edge: 0 = Not at all Not being able to stop or control worryin = Several days Worrying too much about different things: 0 = Not at all Trouble relaxin = Not at all Being so restless that it is hard to sit still: 0 = Not at all Becoming easily annoyed or irritable: 0 = Not at all Feeling afraid as if something awful might happen: 0 = Not at all Total AKILA-7 score (0-4 normal; 5-9 mild; 10-14 moderate; 15-21 severe): 1 Source: Developed by Drs. Roderick Jay, Carissa Montague, Anup Reed and colleagues, with an educational yelitza from [email or web address]. AKILA-7 Assessment Billing AKILA-7 Assessment Tool: AKILA-7 Assessment 64232 Review of Systems Const All systems reviewed & are unremarkable except as noted in HPI and below Card Denies chest pain at rest, Denies chest pain with activity, Denies edema, Denies irregular heart rhythm, Denies claudication, Denies dyspnea, Denies dyspnea on exertion, Denies orthopnea, Denies paroxysmal nocturnal dyspnea and Denies slow heart rate Resp Denies cough, Denies dyspnea and Denies dyspnea on exertion GI Denies abdominal pain, Denies change in bowel habits, Denies excessive flatus, Denies nausea and Denies vomiting Denies urinary incontinence, Denies urinary hesitancy and Denies urinary urgency Musc Denies atrophy, Denies deformity and Denies limited range of motion Physical exam (Primary Care) Vital Signs: Last Vital Signs BP 126/84 12/14/24 09:41 BMI result Body Mass Index 44.0 BMI Assessment/Plan discussion: High BMI High, discussed plan: lifestyle, weight reduction, dietary and physical activity Tobacco/Smoking Status: Tobacco use Status Tobacco use date assessed 12/14/24 12/14/24 09:45 Patient Tobacco Use Status Never used Tobacco 12/14/24 09:58 e-Cigarette/Vaping Use Never Used 12/14/24 09:58 PHQ-9: PHQ-9 Score PHQ-9: Total score 4 12/14/24 10:07 Depression Screening Interpretation: Positive Depression Screening Follow-up: Existing condition and Follow-up Visit Requested Thrive Assessment: Date of Thrive Assessment Date Thrive assessed 12/14/24 12/14/24 09:40 Currently or been in a relationship where the following occur: No concerns reported [facility] Head: Yes normal to inspection, Yes normocephalic and Yes atraumatic Ears: external ears normal Eyes General: appearance normal, both eyes and all related structures Eyelids: Yes eyelids normal Conjunctivae: conjunctivae normal Neck Neck: Yes normal visual inspection and Yes supple Resp Effort & Inspection: normal respiratory effort Auscultation: clear to auscultation bilaterally Cardio Jugular venous distension: no JVD Rate: regular rate Rhythm: regular rhythm Heart sounds: S1 normal heart sound present and S2 normal heart sound present GI Inspection: Yes normal to inspection Palpation (GI): Soft to palpation and nontender Auscultation: normal bowel sounds Skin General skin exam: no rashes or lesions noted Neuro General: no focal motor deficits Extrem General: Yes full ROM Psych Appearance: grossly normal Results AMB Hemoglobin A1c AMB Hemoglobin A1c 7.1 % Last Edit by JENNIFER Kaplan on 12/14/24 09:4 9 Immunizations Boostrix Tdap 2.5 Lf unit-8 mcg-5 Lf/0.5 mL intramuscular syringe Performing Provider: Selina Carrion MD Performing [facility] [place] [place] [facility] Administered by: JENNIFER Kaplan on 12/14/24 10:07 Dose Route Admin Location Dispensed Lot Number Expiration Date [facility] Senior Administrative Assistant 0.5 mL IM Left Deltoid 0.5 mL [id number] 03/02/27 [id number] [employer] Total Dispensed Waste 0.5 mL 0 % VIS Given Date VIS Provided VIS Publication Date 12/14/24 Single Vaccine 24 Eligibility Eligibility Date Funding Source Not [facility] Eligible 12/14/24 Private Results Reviewed Results Reviewed: Laboratory Last Values Hgb A1c (Clinic) 7.1 % (4.0-6.0) H 12/14/24 09:37 Coding Level of Care Code Est Pt Level 3 (76544) Est Pt Prev Care 40-64y(11179) Diagnoses Physical exam Z00.00 Type 2 diabetes mellitus without complication, without long-term current use of insulin E11.9 Diabetes mellitus type: type 2 Diabetes mellitus utilization engineer insulin use: without utilization engineer use Diabetes mellitus complication status: without complication Additional Codes AKILA-7 Assessment Billing - AKILA-7 Assessment Tool: AKILA-7 Assessment 55493 ([id number]) PHQ-9 - 73814 - PHQ-9 Billing: Yes ([id number]) Time Spent (min) 33 Assessment & Plan Assessment & Plan (1) Physical exam: Code(s): Z00.00 - Encounter for general adult medical examination without abnormal findings Category: Medical (2) Diabetes mellitus: Code(s): E11.9 - Type 2 diabetes mellitus without complications Category: Medical Qualifiers: Diabetes mellitus type: type 2 Diabetes mellitus utilization engineer insulin use: without utilization engineer use Diabetes mellitus complication status: without complication Qualified Code(s): E11.9 - Type 2 diabetes mellitus without complications Plan The management plan includes addressing the patient's Type 2 Diabetes Mellitus by maintaining her current Metformin regimen and ensuring access to Trulicity, which has been beneficial for weight management. Efforts will be made to resolve insurance issues to facilitate medication access. For hypertension, the patient will continue Amlodipine, with regular monitoring of blood pressure to ensure it remains controlled. Hyperlipidemia management will focus on achieving the target LDL level of 70 mg/dL, with Rosuvastatin prescribed, and efforts to ensure medication availability will be prioritized. Preventative care measures include scheduling a follow-up mammogram and ensuring the patient receives her tetanus vaccination. Vitamin D supplementation will be continued to address the deficiency. Patient was informed and verbally consented to the use of an ambient scribe for clinic note documentation during this visit. Orders: Orders AMB Hemoglobin A1c Today E11.9 - Type 2 diabetes mellitus without complications Lipid Panel 4 Months E78.5 - Hyperlipidemia, unspecified Microalbumin, Random (w Creat) 4 Months R80.9 - Proteinuria, unspecified Vitamin B12 and Folate 4 Months E53.8 - Deficiency of other specified B group vitamins Comprehensive [place]. Panel Fast 4 Months E11.9 - Type 2 diabetes mellitus without complications Vitamin D 25-OH Total 4 Months E55.9 - Vitamin D deficiency, unspecified TDaP Immunization Today Z23 - Encounter for immunization Referrals Ophthalmology Referral E11.9 - Type 2 diabetes mellitus without complications Medications: New cholecalciferol (vitamin D3) 25 mcg PO DAILY 90 caps 2RF 90 days Refilled dulaglutide (Trulicity) 0.75 mg (0.5 mL) subcut QWEEK 6.5 mL 2RF 90 days E11.9 - Type 2 diabetes mellitus without complications metformin 500 mg PO BID 180 tabs 6RF omeprazole 40 mg PO DAILY 90 caps 1RF 90 days K21.9 - Gastro-esophageal reflux disease without esophagitis rosuvastatin 10 mg PO DAILY 90 tabs 1RF 90 days E78.5 - Hyperlipidemia, unspecified Discontinued oseltamivir (Tamiflu) Discontinued Reason: Patient Completed Course 75 mg PO Q12H 5 days 10 caps 0RF ondansetron Discontinued Reason: Patient Completed Course 4 mg PO Q8H PRN 12 tabs 0RF nausea and vomiting gabapentin Discontinued Reason: Patient Completed Course 100 mg PO TID 30 days 90 caps 0RF oxycodone Partial Fill upon patient request. Discontinued Reason: Patient Completed Course 5 mg PO BID 3 days PRN 6 tabs 0RF pain S24.9XXA - Injury of unspecified nerve of thorax, initial encounter
[2024-12-14 09:41] VITALS: BP 126/84; BMI 44.0
== END 2024-12-14 10:10 | disposition home or self-care (01) ==
LOC: HO.HMCH 09:34
PROVIDERS: PCP Internal Medicine; Visit Provider Internal Medicine
DX: Z00.00 Encounter for general adult medical examination without abnormal findings (principal); E11.9 Type 2 diabetes mellitus without complications; Z23 Encounter for immunization

== ENCOUNTER 2025-01-13 10:31 | Outpatient (AMB) | payer OTHER, SELFPAY ==
[2025-01-13 10:34] VITALS: BP 136/74; PULSE 98; RESP 17; TEMP 36.7; O2SAT 98; BMI 44.0
--- NOTE | 2025-01-13 10:34 | AM.OFFWIN_ITS ---
Intake Vital Signs 01/13/25 10:34 Height 5 ft 1 in Weight 233 lb BMI 44.0 BP 136/74 Blood Pressure Location Lt brachial Position Sitting Respiration 17 Pulse 98 Pulse Source Pulse Oximeter Temp 98.0 F Temp Source Oral Pulse Oximetry (%) 98 Oxygen Delivery Method Room Air Intake Visit Reasons: EP-Cough Intake Note: Pt is here today c/o coughing up greenish phelgm x1week/ also Rt eye red and itchy Patient Tobacco Use Status: Never used Tobacco Allergies diphenhydramine (From Benadryl) Allergy (Verified 01/13/25 11:07) Shortness of Breath Medication List - Last Reconciled 01/13/25 by Lavonne Bailey, ANTONY- amlodipine 2.5 mg PO DAILY 90 days blood sugar diagnostic (FreeStyle Lite Strips) 1 strip miscellaneous BID 30 days cholecalciferol (vitamin D3) 25 mcg PO DAILY 90 days dulaglutide (Trulicity) 0.75 mg (0.5 mL) subcut QWEEK 90 days lancets (TRUEplus Lancets) 33 gauge miscellaneous BID 50 days lidocaine 5% 1 patch topical DAILY metformin 500 mg PO BID naloxone 4 mg/actuation (Narcan) 4 mg intranasal Q2M PRN 5 days omeprazole 40 mg PO DAILY 90 days rosuvastatin 10 mg PO DAILY 90 days HPI HPI Comments History of Present Illness Details History - The patient is a 59-year-old female wi th DM, presenting with upper respiratory symptoms including cough and conjunctivitis. - Symptoms onset was last Wednesday, eva sales over a week duration. - Initial symptoms: headache, fever, bod y ache. - Cough developed two days later, aggrav ated by deep breaths and eating. - Right eye swelling and drainage starte d a few days ago - Home medications included OTC cold med ications w/ short lived relief - Temporary relief obtained from cough m edicine, effective for 2-3 hours. - No current fever; + nasal drainage. - Throat discomfort, nausea with attempt s to clear throat. - No chest pain reported. Review of Systems - General: Reports fever initially, no c urrent fever. - Respiratory: Reports persistent cough, worsened with deep breaths and eating. - Eyes: Reports swelling and drainage in the right eye. - ENT: Reports headache, throat irritati on, clear nasal drainage. Denies significant nasal congestion or purulent discharge. - Gastrointestinal: Reports nausea and o ccasional vomiting due to throat irritation. Physical Exam General: Awake, alert. No apparent distress, appears sick but not toxic Eyes: Right conjunctival inj, watery discharge, mild upper and lower lid edema. PERRLA, EOMI. Left conjunctiva clear. No photophobia. Nose: Nares + discharge, turbinates pale and edematous, + sinus tenderness with palpation bilaterally Ears: Tympanic membranes intact, bulging and dull bilat, R>L Throat: Moist mucosa membrane, pharynx + PND, voice hoarse, uvula midline, no ac adenopathy Cardiovascular: Regular rate and rhythm Respiratory: Clear to auscultation bilaterally, dry hacking cough w/o distress Discussion Notes I proposed starting an antibiotic that treats a variety of infections including those affecting the ears, nose, and throat, and informed her she may see improvement in the eye as well. We reviewed the possibility of getting a chest X-ray, although it does not appear necessary at this time as there are no signs of pneumonia. I recommended staying hydrated, resting, and adhering to the prescribed antibiotic regimen. I instructed the patient to avoid mixing [id number] cough medicines with the Tessalon. I ensured the patient was aware of the importance of completing the antibiotic course and encouraged her to seek follow-up care if symptoms worsen. We also clarified the location for pharmacy pickup to ensure she could access prescribed medications promptly. Patient was given time to ask questions. All questions were answered to their satisfaction. Assessment and Plan - Prescribed antibiotic coverage for ENT and chest infection. - Recommend hydration and rest. - DM mananagement - Advised caution with cough medication mixing. - Oral antibiotic to treat eye symptoms. - Prescribed cough suppressive medicatio n. - RTO Edu provided. Patient Instructions - Take prescribed antibiotic twice daily with food for seven days. - Avoid mixing [id number] cough me dicine with prescription. - Hydrate well and get plenty of rest. - Contact the office if symptoms worsen or do not improve. Consent Patient was informed and verbally consented to the use of an ambient scribe for clinic note documentation during this visit. [facility] Medical History Hyperlipidemia LDL goal <100 Rash Left shoulder pain Morbid obesity Shortness of breath Chronic fatigue Pure hypercholesterolemia Diabetes mellitus Surgical History History of esophagogastroduodenoscopy (EGD) History of colonoscopy History of Family History Father Hypertension Stroke Mother Hypertension Stroke Diabetes Maternal Aunt Cancer Brother No problems noted. Son No problems noted. Son No problems noted. Sister No problems noted. Sister No problems noted. Daughter No problems noted. Social History (Updated 12/14/24 @ 09:58 by Selina Carrion MD) Housing: Apartment Unable to assess alcohol history related to: Unknown Alcohol intake: current Alcohol intake frequency: holidays/special occasions only Alcohol type: wine and hard liquor Patient Tobacco Use Status: Never used Tobacco e-Cigarette/Vaping Use: Never Used Second Hand Smoke Exposure: No service: No Current occupational status: unemployed Cognitive needs: No Hearing needs: No Vision needs: No Physical Exam Vital Signs: Last Vital Signs Temp 98.0 F 01/13/25 10:34 Pulse 98 01/13/25 10:34 Resp 17 01/13/25 10:34 BP 136/74 01/13/25 10:34 Pulse Ox 98 01/13/25 10:34 Oxygen Delivery Method Room Air 01/13/25 10:34 BMI result Body Mass Index 44.0 Assessment & Plan Assessment & Plan (1) Acute bacterial sinusitis: Code(s): J01.90 - Acute sinusitis, unspecified; B96.89 - Other specified bacterial agents as the cause of diseases classified elsewhere (2) Bacterial conjunctivitis of right eye: Code(s): H10.9 - Unspecified conjunctivitis (3) Diabetes mellitus: Code(s): E11.9 - Type 2 diabetes mellitus without complications Qualifiers: Diabetes mellitus type: type 2 Diabetes mellitus terminal makeup operator insulin use: without long-term use Diabetes mellitus complication status: without complica tion Qualified Code(s): E11.9 - Type 2 diabetes mellitus without complications Plan . Medications: New amoxicillin-pot clavulanate 875-125 mg 1 tab PO BID 14 tabs 0RF 7 days benzonatate 100 mg PO TID PRN 30 caps 1RF cough 10 days Coding Level of Care Code Est Pt Level 4 (48676) Diagnoses Acute bacterial sinusitis J01.90; B96.89 Bacterial conjunctivitis of right eye H10.9 Type 2 diabetes mellitus without complication, without long-term current use of insulin E11.9 Diabetes mellitus type: type 2 Diabetes mellitus terminal makeup operator insulin use: without long-term use Diabetes mellitus complication status: without complication
--- OUTSIDE RECORDS SUMMARY | 2025-01-13 10:34 | XMS_ITS | Clinical Summary ---
Author Organization [employer] Address [address] [place] [address] [address] [place] [address] Care Team Providers Care Potter Or Ceramic Artist Name Role Phone Unavailable Primary Care Provider [...] Screening 1963 SDOH Screening 1963 Sigmoidoscopy 1963 Disability Screening 1963 Alcohol/Substance Use Screening 1975 Tobacco Screening 1975 Hepatitis C Screening 09/10/1981 DTaP/Tdap/Td Vaccines (1 - Tdap) 09/10/1982 Pap Smear 09/10/1984 Cervical Cancer Screening 09/10/1993 HPV/Cotest 09/10/1993 Mammogram 2003 Pneumococcal Vaccine: 50+ Years (1 of 1 - PCV) 09/10/2013 Zoster Vaccines (1 of 2) 09/10/2013 Dental Oral Exam 09/03/2022 03/04/2022 Dental Prophylaxis 09/09/2022 03/11/2022 Dental X-Ray: Bitewings 03/05/2023 03/04/20 22, 02/06/2022 COVID-19 Vaccine (4 - 2024-2 5 season) 2024 03/16/2022, 01/31/2021, 01/10/2021 Influenza Vaccine (#1) 2025 03/26/2022 Dental X-Ray: Full Mouth 03/05/2025 03/04/2022 [...] patient's age to complete this topic Meningococcal B Vaccine Aged Out No l onger eligible based on patient's age to complete [...] ADULT Routine 03/11/2022 1 2:00 AM EDT INTRAORAL - COMPLETE SERIES OF RADIOGRAPHIC IMAGES Routine 03/04/2022 12:00 AM EDT COMPREHENSIVE ORAL EVALUATION - NEW OR ESTABLISHED PATIENT Routine 03/04/2022 12:00 AM EDT from Last 3 Months or Most Recently Relevant to Health Maintenance Insurance [facility] MEDICAID STAND ADULT
--- OUTSIDE RECORDS SUMMARY | 2025-01-13 10:34 | XMS_ITS | Encounter Summary ---
Author Organization [employer] Address [address] [place] [address] [address] [place] [address] Care Team Providers Care Bean Picker Name Role Phone Unavailable Primary Care Provider Unavailabl e Encounter Details Date Type Department Care Team (Latest Contact Info) Description 03/11/2022 Abstract [facility] CONVERSIONS Dental, Provider, DDS Social History [...]
--- OUTSIDE RECORDS SUMMARY | 2025-01-13 10:34 | XMS_ITS | Encounter Summary ---
Author Organization [employer] Address [address] [place] [address] Care Team Providers Care Community Recreation Coordinator Name Role Phone Unavailable Primary Care Provider Unavailabl e Encounter Details Date Type Department Care Team ([facility] st Contact Info) Description 04/30/2022 Abstract [facility] ADULT DENTAL [address] [place] [address] Refugio Elliott DDS [address], [place] [id number] Social History Tobacco Use Types Packs/Day Years [...]
== END 2025-01-13 11:15 | disposition home or self-care (01) ==
LOC: HO.HMCWIC 10:31
PROVIDERS: PCP Internal Medicine; Visit Provider Nurse Practitioner Family
DX: J01.90 Acute sinusitis, unspecified (principal); B96.89 Other specified bacterial agents as the cause of diseases classified elsewhere; H10.9 Unspecified conjunctivitis; E11.9 Type 2 diabetes mellitus without complications

== ENCOUNTER → 2025-01-13 10:31 | Outpatient (BNVA) | payer OTHER, SELFPAY | PROVIDERS: PCP Internal Medicine; Visit Provider Nurse Practitioner Family | DX: E11.9 Type 2 diabetes mellitus without complications (principal); J01.90 Acute sinusitis, unspecified; B96.89 Other specified bacterial agents as the cause of diseases classified elsewhere; H10.9 Unspecified conjunctivitis | CPT/HCPCS: 99212 ==

== ENCOUNTER 2025-02-20 16:17 | Outpatient (AMB) | payer OTHER, SELFPAY ==
[2025-02-20 16:21] VITALS: BP 144/80; PULSE 98; TEMP 36.1; O2SAT 97; BMI 44.1
--- NOTE | 2025-02-20 16:21 | A.OFFPC_ITS ---
Vital Signs 02/20/25 16:21 Height 5 ft 1 in Weight 233 lb 8 oz BMI 44.1 BP 144/80 H Blood Pressure Location Lt brachial Position Sitting Pulse 98 Pulse Source Pulse Oximeter Temp 97.0 F Temp Source Temporal Artery Scan Pulse Oximetry (%) 97 Oxygen Delivery Method Room Air Intake Visit Reasons: back pain Allergies diphenhydramine (From Benadryl) Allergy (Verified 02/20/25 16:26) Shortness of Breath Tobacco use date assessed: 02/20/25 Dental Screening Dental Screen Date: 02/20/25 Did you have a dental visit in the last 12 months?: No Did you have a dental problem in the last 6 months where you did not have access to dental care?: No Was dental information given to patient?: No HPI HPI Comments History of Present Illness Details The patient is a 59-year-old female presenting with a burning sensation in the left side and concerns about a spinal issue. The burning sensation began approximately 6-8 months ago and is described as a horrible pain that feels like something is moving inside. The pain is localized to the left side and has a burning quality, sometimes spreading and feeling like a pulling sensation. The patient experienced a severe episode of this pain previously, lasting about three months, during which she was hospitalized for five days and required morphine for pain management. An MRI and CT scan were performed during the hospitalization, revealing an issue with the spine, specifically around the thoracic vertebrae T4 to T7 but no intra-abdominal process. The patient denies any skin rash in the affected area and reports no issues with bowel movements, maintaining regularity without constipation or diarrhea. She h as a history of diabetes, which she manages with metformin, although she was unable to obtain Trulicity due to insurance issues. The patient also reports experiencing acid reflux and occasional bloating, which she associates with certain foods. A previous colonoscopy indicated the presence of diverticulosis. The patient has attempted dietary modifications, including a ketogenic diet, which resulted in significant weight loss but coincided with the onset of her pain. She is considering further dietary changes to manage her symptoms, particularly focusing on eliminating dairy, gluten, red meat, and sugar. [facility] Medical History Hyperlipidemia LDL goal <100 Rash Left shoulder pain Morbid obesity Shortness of breath Chronic fatigue Pure hypercholesterolemia Diabetes mellitus Surgical History History of esophagogastroduodenoscopy (EGD) History of colonoscopy History of Family History Father Hypertension Stroke Mother Hypertension Stroke Diabetes Maternal Aunt Cancer Brother No problems noted. Son No problems noted. Son No problems noted. Sister No problems noted. Sister No problems noted. Daughter No problems noted. Social History Housing: Apartment Alcohol intake: current Alcohol intake frequency: holidays/special occasions only Alcohol type: wine and hard liquor Patient Tobacco Use Status: Never used Tobacco e-Cigarette/Vaping Use: Never Used Second Hand Smoke Exposure: No service: No Current occupational status: unemployed Cognitive needs: No Hearing needs: No Vision needs: No Questionnaire PHQ-9 Over the last 2 weeks, how often have you been bothered by any of the following problems? 1. Little interest or pleasure in doing things: not at all 2. Feeling down, depressed, or hopeless: not at all 3. Trouble falling or staying asleep, or sleeping too much: several days 4. Feeling tired or having little energy: several days 5. Poor appetite or overeating: several days 6. Feeling bad about yourself - or that you are a failure or have let yourself or your family down: several days 7. Trouble concentrating on things, such as reading the newspaper or watching television: not at all 8. Moving or speaking so slowly that other people could have noticed. Or the opposite - being so fidgety or restless that you have been moving around a lot more than usual: not at all 9. Thoughts that you would be better off or of hurting yourself in some way: not at all Total score: 4 Depression Screening Interpretation: Positive Depression Screening Follow-up: Existing condition and Follow-up Visit Requested Depression Screening Done: Yes Source: Developed by Drs. Roderick Jay, Carissa Montague, Anup Reed and colleagues, with an educational yelitza from [employer]. Thrive Questionnaire Date Thrive assessed: 12/14/24 I am a: Patient What is your living situation today?: I have a steady place to live Within the past 12 months, did the food you bought not last and you didn't have the money to get more?: Often true Within the past 12 months, did you worry whether your food would run out before you got money to buy more?: Often true Do you have trouble paying for medicines?: No Do you have trouble getting transportation to medical appointments?: No Do you have trouble paying your heating and electricity bill?: Yes Do you have trouble taking care of your child, family member or friend?: No Do you have trouble with day-to-day activities such as bathing, preparing meals, shopping, managing finances, etc.?: No Are you currently unemployed and looking for a job?: No Are you interested in more education?: No Please select the resources that you would like help with: None Currently or been in a relationship where the following occur: No concerns reported THRIVE Score: 3 AUDIT C Alcohol Use Questionnaire (AUDIT-C) 1. How often do you have a drink containing alcohol?: Monthly or less 2. How many drinks containing alcohol do you have on a typical day when you are drinking?: 1 or 2 3. How often do you have six or more drinks on one occasion?: Never Total Score: 1 AKILA-7 AMB Questionnaire AKILA-7 Date AKILA - 7 assessed: 12/14/24 Feeling nervous, anxious, or on edge: 0 = Not at all Not being able to stop or control worryin = Several days Worrying too much about different things: 0 = Not at all Trouble relaxin = Not at all Being so restless that it is hard to sit still: 0 = Not at all Becoming easily annoyed or irritable: 0 = Not at all Feeling afraid as if something awful might happen: 0 = Not at all Total AKILA-7 score (0-4 normal; 5-9 mild; 10-14 moderate; 15-21 severe): 1 Source: Developed by Drs. Roderick Jay, Carissa Montague, Anup Reed and colleagues, with an educational yelitza from [employer]. Review of Systems Const Details: Positives besides what was mentioned in HPI are in BOLD Constitutional: No Weight Change, No Fever, No Chills, No Night Sweats, No Fatigue, No Malaise ENT/Mouth: No Hearing Changes, No Ear Pain, No Nasal Congestion, No Sinus Pain, No Hoarseness, No sore throat, No Rhinorrhea, No Swallowing Difficulty Eyes: No Eye Pain, No Swelling, No Redness, No Foreign Body, No Discharge, No Vision Changes Cardiovascular: No Chest Pain, No SOB, No PND, No Dyspnea on Exertion, No Orthopnea, No Claudication, No Edema, No Palpitations Respiratory: No Cough, No Sputum, No Wheezing, No Smoke Exposure, No Dyspnea Gastrointestinal: No Nausea, No Vomiting, No Diarrhea, No Constipation, No Pain, No Heartburn, No Anorexia, No Dysphagia, No Hematochezia, No Melena, No Flatulence, No Jaundice Genitourinary: No Dysmenorrhea, No DUB, No Dyspareunia, No Dysuria, No Urinary Frequency, No Hematuria, No Urinary Incontinence, No Urgency, No Flank Pain, No Urinary Flow Changes, No Hesitancy Musculoskeletal: No Arthralgias, No Myalgias, No Joint Swelling, No Joint Stiffness, No Back Pain, No Neck Pain, No Injury History Skin: No Skin Lesions, No Pruritis, No Hair Changes, No Breast/Skin Changes, No Nipple Discharge Neuro: No Weakness, No Numbness, No Paresthesias, No Loss of Consciousness, No Syncope, No Dizziness, No Headache, No Coordination Changes, No Recent Falls Psych: No Anxiety/Panic, No Depression, No Insomnia, No Personality Changes, No Delusions, No Rumination, No SI/HI/AH/VH, No Social Issues, No Memory Changes, No Violence/Abuse Hx., No Eating Concerns Heme/Lymph: No Bruising, No Bleeding, No Transfusions History, No Lymphadenopathy Endocrine: No Polyuria, No Polydipsia, No Temperature Intolerance Physical exam (Primary Care) Vital Signs: Last Vital Signs Temp 97.0 F 02/20/25 16:21 Pulse 98 02/20/25 16:21 BP 144/80 H 02/20/25 16:21 Pulse Ox 97 02/20/25 16:21 Oxygen Delivery Method Room Air 02/20/25 16:21 BMI result Body Mass Index 44.1 Tobacco/Smoking Status: Tobacco use Status Tobacco use date assessed 02/20/25 02/20/25 16:28 Patient Tobacco Use Status Never used Tobacco 02/20/25 16:28 e-Cigarette/Vaping Use Never Used 02/20/25 16:28 PHQ-9: PHQ-9 Score PHQ-9: Total score 4 02/20/25 16:28 Depression Screening Interpretation: Positive Depression Screening Follow-up: Existing condition and Follow-up Visit Requested Thrive Assessment: Date of Thrive Assessment Date Thrive assessed 12/14/24 02/20/25 16:28 Currently or been in a relationship where the following occur: No concerns reported Const Other: Pertinent findings are in BOLD GENERAL APPEARANCE NAD, activity normal for age, well developed/ well nourished, no cyanosis, pallor, or diaphoresis. EYES lids/conjunctiva normal. EARS/NOSE/THROAT Mucous membranes moist, nares normal, lips/teeth normal uvula midline without oral pharyngeal erythema, exudate or swelling TMs normal bilaterally. No lymphangitis/lymphedema. HEAD/NECK normocephalic atraumatic, no facial trauma, neck is supple. RESPIRATORY respiratory effort normal, speaks in full sentences, no tripod position, no accessory muscle use. Lungs clear to auscultation without rhonchi, wheezes, rales CARDIAC Regular rate and rhythm, no edema. ABDOMINAL Soft, ND/NT. No evidence of fluid wave. No pulsatile masses on exam, rebound tenderness, Nguyen sign or pain over Mcburney's point. MUSCLES/EXTREMITIES No abnormal range of motion, no swelling. SKIN Warm, pink and dry. No rashes, dermatoses, petechiae or lesions. NEUROLOGICAL Speech is clear and appropriate. Normal level of consciousness. Gait and coordination are normal. 5/5 strength in all extremities. PSYCH Normal mood and affect. Judgement/competence is appropriate Coding Level of Care Code Est Pt Level 3 (27854) Diagnoses Left sided abdominal pain R10.9 Time Spent (min) 20 Assessment & Plan Assessment & Plan (1) Left sided abdominal pain: Code(s): R10.9 - Unspecified abdominal pain Category: Medical Plan: - Consider dietary modifications to identify potential food triggers. - Monitor symptoms and follow up if no improvement. Plan During the visit, we discussed the potential impact of diet on the patient's sy mptoms, particularly the burning sensation in the left side and acid reflux. I recommended eliminating certain food categories, such as dairy, gluten, red meat, and sugar, to identify any potential triggers.
--- OUTSIDE RECORDS SUMMARY | 2025-02-20 18:39 | XMS_ITS | Encounter Summary ---
Author Organization [employer] Address [address] [place] [address] [address] [place] [address] Care Team Providers Care Finisher [employer] Boat Parts Name Role Phone Unavailable Primary Care Provider Unavailabl e Encounter Details Date Type Department Care Team (Latest Contact Info) Description 03/11/2022 Abstract [facility] CONVERSIONS Dental, Provider, DDS Social History Tobacco [...]
--- OUTSIDE RECORDS SUMMARY | 2025-02-20 18:39 | XMS_ITS | Clinical Summary ---
Author Organization [employer] Address [address] [place] [address] [address] [place] [address] Care Team Providers Care Informatics Nurse Name Role Phone Unavailable Primary Care Provider [...] 03/04/20 22, 02/06/2022 COVID-19 Vaccine (4 - 2025-2 6 season) 2025 03/16/2022, 01/31/2021, 01/10/2021 Influenza Vaccine (#1) 2025 [...] Most Recently Relevant to Health Maintenance Insurance [facility] MEDICAID STAND ADULT
--- OUTSIDE RECORDS SUMMARY | 2025-02-20 18:39 | XMS_ITS | Encounter Summary ---
Author Organization [employer] Address [address] [facility] [address]t [place] [address] Care Team Providers Care Water Taxi Ferry Operator Name Role Phone Unavailable Primary Care Provider Unavailabl e Encounter Details Date Type Department Care Team ([facility] st Contact Info) Description 04/30/2022 Abstract [facility] [address] [place] [address] Refugio Elliott DDS [address] [place], [place] [phone] Social History Tobacco Use Types Packs/Day Years [...]
== END 2025-02-20 16:49 | disposition home or self-care (01) ==
LOC: HO.HMCH 16:18
PROVIDERS: PCP Internal Medicine; Visit Provider Internal Medicine
DX: R10.9 Unspecified abdominal pain (principal)

== ENCOUNTER → 2025-02-20 16:17 | Outpatient (BNVA) | payer OTHER, SELFPAY | PROVIDERS: PCP Internal Medicine; Visit Provider Internal Medicine | DX: R10.9 Unspecified abdominal pain (principal); K21.9 Gastro-esophageal reflux disease without esophagitis; E11.9 Type 2 diabetes mellitus without complications; R14.0 Abdominal distension (gaseous) | CPT/HCPCS: 99212 ==

== ENCOUNTER 2025-02-22 08:55 | Outpatient (REF) | payer OTHER, SELFPAY ==
--- OUTSIDE RECORDS SUMMARY | 2025-02-22 09:49 | XMS_ITS | Clinical Summary ---
Author Organization [employer] Address [address] [place] [address] [address] [place] [address] Care Team Providers Care Corporate Real Estate Manager Name Role Phone Unavailable Primary Care [...] Most Recently Relevant to Health Maintenance Insurance [facility] MEDICAID STAND ADULT
--- OUTSIDE RECORDS SUMMARY | 2025-02-22 09:49 | XMS_ITS | Encounter Summary ---
Author Organization [employer] Address [address] [place] [address] [address] [place] [address] Care Team Providers Care Anatomic Pathology Assistant Name Role Phone Unavailable Primary Care Provider Unavailabl e Encounter Details Date Type Department Care Team (Latest Contact Info) Description 03/11/2022 Abstract [facility] CONVERSIONS Dental, Provider, DDS Social History Tobacco [...]
--- OUTSIDE RECORDS SUMMARY | 2025-02-22 09:49 | XMS_ITS | Encounter Summary ---
Author Organization [employer] Address [address] [facility] [address]t [place] [address] Care Team Providers Care Environmental Services Associate Name Role Phone Unavailable Primary Care Provider Unavailabl e Encounter Details Date Type Department Care Team ([facility] st Contact Info) Description 04/30/2022 Abstract [facility] [address] [place] [address] Refugio Elliott DDS [address] [place], [place] [phone] Social History Tobacco Use Types Packs/Day Years [...]
== END 2025-02-22 08:56 | disposition home or self-care (01) ==
LOC: HO.MAMMO 08:55
PROVIDERS: PCP Internal Medicine; Visit Provider Internal Medicine
DX: Z12.31 Encounter for screening mammogram for malignant neoplasm of breast (principal)
CPT/HCPCS: 77063; 77067

== ENCOUNTER → 2025-02-22 09:00 | Outpatient (BNV) | payer OTHER, SELFPAY | PROVIDERS: PCP Internal Medicine; Visit Provider Radiology Body Imaging | DX: Z12.31 Encounter for screening mammogram for malignant neoplasm of breast (principal) | CPT/HCPCS: 77063; 77067 ==

== ENCOUNTER 2025-04-25 07:52 | Outpatient (AMB) | payer OTHER, SELFPAY ==
--- OUTSIDE RECORDS SUMMARY | 2025-04-25 07:56 | XMS_ITS | Clinical Summary ---
Author Organization [employer] Address [address] [place] [address] [address] [place] [address] Care Team Providers Care Frame Pulley Mortising Machine Operator Name Role Phone Unavailable Primary Care [...] Most Recently Relevant to Health Maintenance Insurance [facility] MEDICAID STAND ADULT
--- OUTSIDE RECORDS SUMMARY | 2025-04-25 07:56 | XMS_ITS | Encounter Summary ---
Author Organization [employer] Address [address] [facility] [address] [place] [address] Care Team Providers Care Foreign Language Professor Name Role Phone Unavailable Primary Care Provider Unavailabl e Encounter Details Date Type Department Care Team ([facility] st Contact Info) Description 04/30/2022 Abstract [facility] [address] [place] [address] Refugio Elliott DDS [address] [place], [place] [phone] Social History Tobacco Use Types Packs/Day Years [...]
--- OUTSIDE RECORDS SUMMARY | 2025-04-25 07:56 | XMS_ITS | Encounter Summary ---
Author Organization [employer] Address [address] [place] [address] [address] [place] [address] Care Team Providers Care Solar Mechanical Engineer Name Role Phone Unavailable Primary Care Provider Unavailabl e Encounter Details Date Type Department Care Team (Latest Contact Info) Description 03/11/[address] [facility] CONVERSIONS Dental, Provider, DDS Social History [...]
--- NOTE | 2025-04-25 08:13 | MHC.PC.OV ---
Vital Signs 04/25/25 08:14 Height 5 ft 1 in Weight 231 lb 4 oz BMI 43.7 BP 160/80 H Position Sitting Respiration 14 Temp 97.1 F Temp Source Tympanic Intake Visit Reasons: dm Harness Maker Required: No Accompanied by: Self / Same As Patient Allergies diphenhydramine (From Benadryl) Allergy (Verified 04/25/25 08:21) Shortness of Breath Medication List - Last Reconciled 04/25/25 by Selina Carrion MD amlodipine 2.5 mg PO DAILY 90 days blood sugar diagnostic (FreeStyle Lite Strips) 1 strip miscellaneous BID 30 days lancets (TRUEplus Lancets) 33 gauge miscellaneous BID 50 days metformin 500 mg PO BID Tobacco use date assessed: 02/20/25 Dental Screening Dental Screen Date: 02/20/25 HPI HPI Comments History of Present Illness Details The patient is a 59 year old female presenting for follow-up and management of chronic conditions and medication refills. She complains of bilateral sinus tenderness with some congestion that started few days ago with no fever. The patient has a history of diabetes, for which she takes metformin 500 mg twice daily. Her home blood glucose monitoring shows fasting levels around 120 mg/dL and postprandial levels as high as 150-152 mg/dL. An in-office A1c test was performed, with results pending. She has not been taking her prescribed Trulicity. Her A1c 7.7% today and we will restart her on Trulicity. She is morbidly obese with a BMI of 43.7 and was advised to do diet and exercise to reach BMI goal less than 30. For hyperlipidemia, the patient has not been taking her prescribed rosuvastatin 10 mg, and her last LDL was noted to be not at goal. For hypertension, she takes amlodipine 2.5 mg and her blood pressure was noted to be elevated at this visit. Did not took amlodipine today. The patient was offered a referral for weight management but declined bariatric surgery. She reports an allergy to Benadryl. [facility] Medical History Hyperlipidemia LDL goal <100 Rash Left shoulder pain Morbid obesity Shortness of breath Chronic fatigue Pure hypercholesterolemia Diabetes mellitus Surgical History History of esophagogastroduodenoscopy (EGD) History of colonoscopy History of Family History Father Hypertension Stroke Mother Hypertension Stroke Diabetes Maternal Aunt Cancer Brother No problems noted. Son No problems noted. Son No problems noted. Sister No problems noted. Sister No problems noted. Daughter No problems noted. Social History Housing: Apartment Alcohol intake: current Alcohol intake frequency: holidays/special occasions only Alcohol type: wine and hard liquor Patient Tobacco Use Status: Never used Tobacco e-Cigarette/Vaping Use: Never Used Second Hand Smoke Exposure: No service: No Current occupational status: unemployed Cognitive needs: No Hearing needs: No Vision needs: No Questionnaire Thrive Questionnaire Date Thrive assessed: 12/14/24 What is your living situation today?: I have a steady place to live Within the past 12 months, did the food you bought not last and you didn't have the money to get more?: Often true Within the past 12 months, did you worry whether your food would run out before you got money to buy more?: Often true Do you have trouble paying for medicines?: No Do you have trouble getting transportation to medical appointments?: No Do you have trouble paying your heating and electricity bill?: Yes Do you have trouble taking care of your child, family member or friend?: No Do you have trouble with day-to-day activities such as bathing, preparing meals, shopping, managing finances, etc.?: No Are you currently unemployed and looking for a job?: No Are you interested in more education?: No Please select the resources that you would like help with: None Currently or been in a relationship where the following occur: No concerns reported THRIVE Score: 3 AKILA-7 AMB Questionnaire AKILA-7 Date AKILA - 7 assessed: 12/14/24 Source: Developed by Drs. Roderick Jay, Carissa Montague, Anup Reed and colleagues, with an educational yelitza from [employer]. Review of Systems Const All systems reviewed & are unremarkable except as noted in HPI and below Card Denies chest pain at rest, Denies chest pain with activity, Denies edema, Denies irregular heart rhythm, Denies claudication, Denies dyspnea, Denies dyspnea on exertion, Denies orthopnea, Denies paroxysmal nocturnal dyspnea and Denies slow heart rate Resp Denies cough, Denies dyspnea and Denies dyspnea on exertion Physical exam (Primary Care) Vital Signs: Last Vital Signs Temp 97.1 F 04/25/25 08:14 Resp 14 04/25/25 08:14 BP 160/80 H 04/25/25 08:14 BMI result Body Mass Index 43.7 BMI Assessment/Plan discussion: High BMI High, discussed plan: lifestyle, weight reduction, dietary and physical activity Tobacco/Smoking Status: Tobacco use Status Tobacco use date assessed 02/20/25 04/25/25 08:16 Patient Tobacco Use Status Never used Tobacco 04/25/25 08:16 e-Cigarette/Vaping Use Never Used 04/25/25 08:16 Thrive Assessment: Date of Thrive Assessment Date Thrive assessed 12/14/24 04/25/25 08:16 Currently or been in a relationship where the following occur: No concerns reported Resp Effort & Inspection: normal respiratory effort Auscultation: clear to auscultation bilaterally Cardio Jugular venous distension: no JVD Rate: regular rate Rhythm: regular rhythm Heart sounds: S1 normal heart sound present and S2 normal heart sound present Extrem General: Yes full ROM Office Procedures Flu Questionnaire Does the patient have a severe egg allergy?: No Does the patient have severe life threatening allergies?: No Does the patient have a fever or illness today?: No Has the patient ever had Guillain-[place] Syndrome?: No Has the patient ever had any past reaction to a flu shot?: No Results AMB Hemoglobin A1c AMB Hemoglobin A1c 7.7 % Last Edit by JENNIFER Polk on 04/25/25 08:35 Immunizations Fluarix [id number] (PF) 45 mcg (15 mcg x 3)/0.5 mL IM syringe Performing Provider: Selina Carrion MD [facility] Administered by: Tressa Bryson LPN on 04/25/25 08:52 Dose Route Admin Location Dispensed Lot Number Expiration Date NDC Air Export Agent 0.5 mL IM Left Deltoid 0.5 mL [id number] 11/06/25 [id number] [employer] VIS Given Date VIS Provided VIS Publication Date 04/25/25 Single Vaccine 24 Eligibility Eligibility Date Funding Source Not VFC Eligible 04/25/25 Private Results Reviewed Results Reviewed: Laboratory Last Values Hgb A1c (Clinic) 7.7 % (4.0-6.0) H 04/25/25 08:19 Coding Level of Care Code Add On Preventative Visit Only Diagnoses Type 2 diabetes mellitus without complication, without long-term current use of insulin E11.9 Diabetes mellitus complication status: without complication Diabetes mellitus intermediate designer insulin use: without intermediate designer use Diabetes mellitus type: type 2 Essential hypertension I10 Hyperlipidemia LDL goal <70 E78.5 Sinus congestion R09.81 Time Spent (min) 23 Assessment & Plan Assessment & Plan (1) Diabetes mellitus: Code(s): E11.9 - Type 2 diabetes mellitus without complications Category: Medical Qualifiers: Diabetes mellitus complication status: without complication Diabetes mellitus intermediate designer insulin use: without intermediate designer use Diabetes mellitus type: type 2 Qualified Code(s): E11.9 - Type 2 diabetes mellitus without complications (2) Essential hypertension: Code(s): I10 - Essential (primary) hypertension Category: Medical (3) Hyperlipidemia LDL goal <70: Code(s): E78.5 - Hyperlipidemia, unspecified Category: Medical (4) Sinus congestion: Code(s): R09.81 - Nasal congestion Category: Medical Plan Plan 1. Diabetes Mellitus The patient's home blood glucose levels are elevated, with fasting readings of 120 mg/dL and postprandial readings up to 152 mg/dL. She has been non-adherent with Trulicity. A 90-day prescription for Trulicity will be sent to the pharmacy, and it will be restarted at a low dose and titrated up gradually. She will continue taking metformin. An A1c level was checked and it was 7.7% in which the goal is less than 7%. 2. Hyperlipidemia The patient's LDL cholesterol was not at goal previously, and she has not been taking her rosuvastatin 10 mg. A 180-day prescription for rosuvastatin 10 mg will be sent to her pharmacy. 3. Hypertension The patient's blood pressure was elevated during the visit. She will continue amlodipine 2.5 mg daily. 4. Morbid obesity The patient declined a referral for bariatric surgery. It was discussed that Trulicity may help with weight loss. Other medications that are more effective for weight loss are not approved by her insurance plan without a trial of other agents first. 5. Sinus congestion Start amoxicillin. Orders: Orders AMB Hemoglobin A1c Today E11.9 - Type 2 diabetes mellitus without complications Vitamin D 25-OH Total Today E55.9 - Vitamin D deficiency, unspecified Vitamin B12 and Folate Today E53.8 - Deficiency of other specified B group vitamins Comprehensive [place]. Panel Fast Today E11.9 - Type 2 diabetes mellitus without complications Lipid Panel Today E78.5 - Hyperlipidemia, unspecified Microalbumin, Random (w Creat) Today R80.9 - Proteinuria, unspecified Influenza [id number] Immunization Today Z23 - Encounter for immunization Medications: New rosuvastatin 10 mg PO DAILY 90 tabs 1RF 90 days E78.5 - Hyperlipidemia, unspecified dulaglutide (Trulicity) 0.75 mg (0.5 mL) subcut QWEEK 6.5 mL 1RF 90 days E11.9 - Type 2 diabetes mellitus without complications cholecalciferol (vitamin D3) 50 mcg PO DAILY 90 caps 1RF 90 days amoxicillin 500 mg PO BID 14 tabs 0RF 7 days
[2025-04-25 08:14] VITALS: BP 160/80; RESP 14; TEMP 36.2; BMI 43.7
== END 2025-04-25 08:52 | disposition home or self-care (01) ==
LOC: HO.HMCH 07:53
PROVIDERS: PCP Internal Medicine; Visit Provider Internal Medicine
DX: E11.9 Type 2 diabetes mellitus without complications (principal); I10 Essential (primary) hypertension; E78.5 Hyperlipidemia, unspecified; R09.81 Nasal congestion; Z23 Encounter for immunization

== ENCOUNTER → 2025-04-25 07:52 | Outpatient (BNVA) | payer OTHER, SELFPAY | PROVIDERS: PCP Internal Medicine; Visit Provider Internal Medicine | DX: E11.9 Type 2 diabetes mellitus without complications (principal); E78.5 Hyperlipidemia, unspecified; I10 Essential (primary) hypertension; R09.81 Nasal congestion; E66.01 Morbid (severe) obesity due to excess calories; Z23 Encounter for immunization; Z68.41 Body mass index [BMI] 40.0-44.9, adult | CPT/HCPCS: 83036; 90471; 90656; 99212 ==